=== PATIENT | male | born 1955 | race Caucasian/White ===

== ENCOUNTER 2023-02-11 20:37 | Emergency (ER) | payer MEDICARE, BC, MEDICAID, SELFPAY ==
[2023-02-11 20:53] VITALS: BP 127/82; PULSE 69; RESP 18; TEMP 36.4; O2SAT 98; BMI 32.3
--- NOTE | 2023-02-11 21:35 | CRLHL7_ITS ---
For Patients: As a result of the Cures Act, medical imaging exams and procedure reports are released immediately into your electronic medical record. You may view this report before your referring provider. If you have questions, please contact your health care provider. INDICATION: Mid deltoid pain and subscapularis. Pain after fall. TECHNIQUE: Right shoulder 3 views. COMPARISON: Right shoulder radiographs [id number]. FINDINGS: No acute fracture or dislocation. Mild degenerative changes of the acromioclavicular joint. The visualized right lung is clear. Sternotomy. Pacemaker wires. Soft tissues are unremarkable. IMPRESSION: No acute findings. Dictated by Kiana Bergman MD @ 02/11/2023 11:07:28 PM (Electronically Signed)
--- NOTE | 2023-02-11 21:35 | CRLHL7_ITS ---
For Patients: As a result of the Century Cures Act, medical imaging exams and procedure reports are released immediately into your electronic medical record. You may view this report before your referring provider. If you have questions, please contact your health care provider. INDICATION: Right mid anterior axillary line rib pain. COMPARISON: Chest radiograph 09/07/2020. TECHNIQUE: PA chest and right ribs, 3 images. FINDINGS: Suboptimal overpenetrated PA view limits evaluation, particularly in the left upper lung. No focal consolidation, pleural effusion, or pneumothorax. Linear atelectasis or scarring left lung base. Heart size upper limits of normal. Normal pulmonary vascularity. Sternotomy with cardiac valve prosthesis. Left chest pacemaker with leads in stable position. Surgical clips right upper quadrant. No displaced rib fracture identified. IMPRESSION: 1. No acute cardiopulmonary findings. 2. No displaced rib fracture identified. Dictated by Kiana Bergman MD @ 02/11/2023 11:04:20 PM (Electronically Signed)
--- OUTSIDE RECORDS SUMMARY | 2023-02-11 22:07 | XMS_ITS | CCD ---
Author Name Mellisa Fountain CNP Address [address] [facility] [address] [place] [address] Phone Organization [facility] Phone Care Team Providers Care Systems Admin Name Role Phone Jin Flowers MD Primary Care Provider Unavailabl e Unavailable Chronic Care Management Unavaila ble Summary Purpose DataExchange Insurance Providers Payer name Policy type / Coverage type Covered constitution party ID Effective Begin Date Effective End Date BC[place] of [place] Medicare Part B [id number] Unknown Unkn own Family history Mother Diagnosis Age At Onset Arthritis Unknown Father Diagnosis Age At Onset Suicide Unknown Social History Social History Element Codes Description Effec tive Dates Alcohol history SNOMED CT: 549672 Currently drin ks alcohol Occ use only 04/23/2021 Marital status Unknown x2 04/22/2021 Living arrangements Unknown Memory Care 04/22/[address]: 5551552 Former smoker 04/22 Children Unknown Has Children [...] Inbrija 42 mg capsules for inhalation RxNorm: 1645471 Take 1 Capsule(s) Inhalation as needed 04/11/2021 No Stop Date Active Aspirin Low Dose 81 mg tablet,delayed release RxNorm: 293084 Take 1 Tablet(s) Oral QD 04/11/2021 No Stop Date Active carbidopa ER 50 mg-levodopa 200 mg tablet,extended release RxNorm: 481999 Take 1 Tablet(s) Oral QHS every night at bedtime 04/11/2021 No Stop Date Active carbidopa 25 mg-levodopa 100 mg tablet RxNorm: 474997 Take 2 Tablet(s) Oral Q4H every four hours 04/11/2021 No Stop Date Active Medication Administered No Medication Administered data Immunizations Vaccine Codes Dose Date Status Covid-19 CVX: 208 12/18/2020 Covid-19 CVX: 208 11/27/2020 Tdap CVX: 115 01/07/2016 Tetanus, Diptheria, Pertussis CVX: 115 2015 Results Observation Observation Code Item Item Code Result Date S ervice Location PHQ9 PHQ9 57281-6 3 04/23/2021 Unknown SLUMS SLUMS 83589-7 08/2404/23/2021 Unknown Procedures Procedure Codes Date SYS BP LESS 140 CPT-4: G8752 04/23/2021 LLANOS BP LESS 90 CPT-4: G8754 04/23/2021 PT INELIG NEG SCRN DEPRES SNOMED CT: 428 [id number] CPT-4: G8510 04/23/2021 FALL RISK ASSESSMENT DOCD CPT-4: 3288F 2020 Vital Signs Date Vital Reason For Visit No Reason For Visit data Encounters Encounter Performer Location Codes Date (65558) DOMICIL VISIT NEW PAT Diagnosis: Parkinsons disease[ICD10: G20] Diagnosis: Acute lacunar stroke[ICD10: I63.81] Diagnosis: Weakness[ICD10: R53.1] Diagnosis: Weakness due to acute cerebrovascular accident (CVA)[ICD10: I63.9] Diagnosis: Unsteadiness on feet[ICD10: R26.81] Diagnosis: Dementia in other diseases classified elsewhere without behavioral disturbance[ICD10: F02.80] Diagnosis: Dementia with Lewy bodies[ICD10: G31.83] Diagnosis: History of permanent cardiac pacemaker placement[ICD10: Z95.0] Mellisa Fountain [facility] CPT-4: 80684 04/23/2021 Plan of Care Planned Activity Notes Codes Status Date Visit Plan: 04/23/2021 Patient Education: Patient Medication Summary Completed 04/23/2021 Patient Education: Influenza Vaccine Completed 04/23/2021 Patient Education: Alzheimer''s Disease Completed 04/23/2021 Patient Education: Dementia Complete d 04/23/2021
--- OUTSIDE RECORDS SUMMARY | 2023-02-11 22:07 | XMS_ITS | CCD ---
Author Name May Hannon CNP Address [address] [facility] [address] [place] [address] Phone Organization [facility] Phone Care Team Providers Care Home Health Clinical Liaison Name Role Phone Jin Flowers MD Primary Care Provider Unavailabl e Unavailable Chronic Care Management Unavaila ble Summary Purpose DataExchange Insurance Providers Payer name Policy type / Coverage type Covered alliance party ID Effective Begin Date Effective End Date [place] Medicare Part B [id number] Unknown Unkn own Family history Mother Diagnosis Age At Onset Arthritis Unknown Father Diagnosis Age At Onset Suicide Unknown Social History Social History Element Codes Description Effec tive Dates Alcohol history SNOMED CT: 415934 Currently drin ks alcohol Occ use only 04/23/2021 Marital status Unknown x2 04/22/2021 Living arrangements Unknown Memory Care 04/22/[address]: 4602776 Former smoker 04/22 Children Unknown Has Children [...] Fill Instructions citalopram 20 mg tablet RxNorm: 405135 Take 1 Tablet(s) Oral QD 08/01/20 22 Active citalopram 20 mg tablet RxNorm: 658074 Take 1 Tablet(s) Oral QD 08/07/20 21 Inactive Inbrija 42 mg capsules for inhalation RxNorm: 8010675 Take 1 Capsule(s) Inhalation as needed No Stop Date Active Aspirin Low Dose 81 mg tablet,delayed release RxNorm: 862765 Take 1 Tablet(s) Oral QD 1 No Stop Date Active carbidopa ER 50 mg-levodopa 200 mg tablet,extended release RxNorm: 162920 Take 1 Tablet(s) Oral QHS every night at bedtime 1 No Stop Date Active carbidopa 25 mg-levodopa 100 mg tablet RxNorm: 149747 Take 2 Tablet(s) Oral Q4H every four hours 1 No Stop Date Active Medication Administered No Medication Administered data Immunizations Vaccine Codes Dose Date Status Covid-19 CVX: 208 12/18/2020 Covid-19 CVX: 208 11/27/2020 Tdap CVX: 115 01/07/2016 Tetanus, Diptheria, Pertussis CVX: 115 2015 Results Observation Observation Code Item Item Code Result Date S ervice Location PHQ9 PHQ9 58200-9 3 08/07/2021 Unknown SLUMS SLUMS 94156-6 06/24 (Agitated) 08/07/2021 Unknown Procedures Procedure Codes Date PPPS, SUBSEQ VISIT SNOMED CT: 843541290 675950 CPT-4: G0439 08/07/2021 SYS BP LESS 140 CPT-4: G8752 08/07/2021 LLANOS BP LESS 90 CPT-4: G8754 08/07/2021 ADVNC CARE PLAN IN RCRD CPT-4: 1157F 08/07/20 21 FXNL STATUS ASSESSED CPT-4: 1170F 08/07/2021 AMNT PAIN NOTED NONE PRSNT CPT-4: 1126F 08/07 FALL RISK ASSESSMENT DOCD CPT-4: 3288F 2020 PT INELIG NEG SCRN DEPRES SNOMED CT: 428 [id number] CPT-4: G8510 08/07/2021 Vital Signs Date Vital Reason For Visit No Reason For Visit data Encounters Encounter Performer Location Codes Date (25751) DOMICIL VISIT EST PAT Diagnosis: Parkinsons disease[ICD10: G20] Diagnosis: Dementia in other diseases classified elsewhere without behavioral disturbance[ICD10: F02.80] Diagnosis: Dementia with Lewy bodies[ICD10: G31.83] Diagnosis: Weight loss[ICD10: R63.4] Diagnosis: Unsteadiness on feet[ICD10: R26.81] May Hannon [facility] CPT-4: 00913 08/07/2021 Plan of Care Planned Activity Notes [...] If weight accurate, consider adding protein supplement shake.?? Abnormalities of Gait Patient frequently ambulating without cane or walker. Continue to taper medications as able to reduce falls risk.?? Neurocognitive Disorders Increased exit seeking behaviors. Will increase celexa to 20mg daily and monitor.?? Parkinsons disease Patient safe and appropriate for environment. Continue to monitor for declines. . 08/07/2021
--- OUTSIDE RECORDS SUMMARY | 2023-02-11 22:07 | XMS_ITS | CCD ---
Author Name Mellisa Fountain CNP Address [address] [facility] [address] [place] [address] [facility] Phone Care Team Providers Care Coater Brake Linings Name Role Phone Jin Flowers MD Primary Care Provider Unavailabl e Unavailable Chronic Care Management Unavaila ble Summary Purpose DataExchange Insurance Providers Payer name Policy type / Coverage type Covered democrat ID Effective Begin Date Effective End Date [place] Medicare Part B [id number] Unknown Unkn own Family history Mother Diagnosis Age At Onset Arthritis Unknown Father Diagnosis Age At Onset Suicide Unknown Social History Social History Element Codes Description Effec tive Dates Alcohol history SNOMED CT: 366191 Currently drin ks alcohol Occ use only 04/23/2021 Marital status Unknown x2 04/22/2021 Living arrangements Unknown Memory Care 04/22/[address]: 5289714 Former smoker 04/22 Children Unknown Has Children [...] Fill Instructions citalopram 20 mg tablet RxNorm: 076286 Take 1 Tablet(s) Oral QD 1 08/01/20 22 Active citalopram 20 mg tablet RxNorm: 680691 Take 1 Tablet(s) Oral QD 1 08/07/20 21 Inactive Inbrija 42 mg capsules for inhalation RxNorm: 3810775 Take 1 Capsule(s) Inhalation as needed 1 No Stop Date Active Aspirin Low Dose 81 mg tablet,delayed release RxNorm: 564219 Take 1 Tablet(s) Oral QD 1 No Stop Date Active carbidopa ER 50 mg-levodopa 200 mg tablet,extended release RxNorm: 100211 Take 1 Tablet(s) Oral QHS every night at bedtime 1 No Stop Date Active carbidopa 25 mg-levodopa 100 mg tablet RxNorm: 421078 Take 2 Tablet(s) Oral Q4H every four hours 1 No Stop Date Active Medication Administered No Medication Administered data Immunizations Vaccine Codes Dose Date Status Covid-19 CVX: 208 12/18/2020 Covid-19 CVX: 208 11/27/2020 Tdap CVX: 115 01/07/2016 Tetanus, Diptheria, Pertussis CVX: 115 2015 Results Observation Observation Code Item Item Code Result Date Service Location Vitamin D Deficiency [id number] VITAMIN D DEFICIENCY SCREENING 12 ug/L 12/06/19 22 Unknown TSH IHL180 TSH LHE 14784-8 1.35 uIU/mL 12/05/19 22 Unknown CBC with Platelets Differential MJY652 WBC COUNT (AUTOMATED) 7.3 10e3/uL 12/05/19 22 Unknown CBC with Platelets Differential JQD047 RBC COUNT 789-8 4.54 10e6/uL 12/05/19 22 Unknown CBC with Platelets Differential VXU685 Hemoglobin 718-7 14.2 g/dL 12/05/19 22 Unknown CBC with Platelets Differential BGK135 Hematocrit 4544-3 43.7 % 12/05/19 22 Unknown CBC with Platelets Differential XXI789 MCV 787-2 96 fL 12/05/19 22 Unknown CBC with Platelets Differential RLK324 MCH 31.3 pg 12/05/19 22 Unknown CBC with Platelets Differential YPJ258 MCHC 32.5 g/dL 12/05/19 22 Unknown CBC with Platelets Differential VKD087 RDW 13.6 % 12/05/19 22 Unknown CBC with Platelets Differential FAS873 Platelet Count 777-3 193 10e3/uL 12/05/19 22 Unknown CBC with Platelets Differential HIL426 % NEUTROPHILS AUTO 60 % 12/05/19 22 Unknown CBC with Platelets Differential BYO167 % LYMPHOCYTES AUTO 26 % 12/05/19 22 Unknown CBC with Platelets Differential DMT830 % MONOCYTES AUTO 8 % 12/05/19 22 Unknown CBC with Platelets Differential OQY582 % EOSINOPHILS AUTO 5 % 12/05/19 22 Unknown CBC with Platelets Differential MVJ020 % BASOPHILS AUTO 1 % 12/05/19 22 Unknown CBC with Platelets Differential ZXC441 % IMMATURE GRANULOCYTES AUTO 0 % 12/05/19 22 Unknown CBC with Platelets Differential QXD230 NRBCS PER 100 WBC AUTO 0 /100 12/05/19 22 Unknown CBC with Platelets Differential DYE681 ABSOLUTE NEUTROPHILS AUTO 4.4 10e3/uL 12/05/19 22 Unknown CBC with Platelets Differential QWW981 ABSOLUTE LYMPHOCYTES AUTO 1.9 10e3/uL 12/05/19 22 Unknown CBC with Platelets Differential YUM163 ABSOLUTE MONOCYTES AUTO 0.6 10e3/uL 12/05/19 22 Unknown CBC with Platelets Differential MPG504 ABSOLUTE EOSINOPHILS AUTO 0.4 10e3/uL 12/05/19 22 Unknown CBC with Platelets Differential COB712 ABSOLUTE BASOPHILS AUTO 0.0 10e3/uL 12/05/19 22 Unknown CBC with Platelets Differential ZGT505 ABSOLUTE IMMATURE GRANULOCYTES AUTO 0.0 10e3/uL 12/05/19 22 Unknown CBC with Platelets Differential NFH746 NRBCS ABSOLUTE 0.0 10e3/uL 12/05/19 Unknown Basic Metabolic Panel LAB15 Sodium 2951-2 139 mmol/L 12/05/19 22 Unknown Basic Metabolic Panel LAB15 Potassium 2823-3 4.2 mmol/L 12/05/19 22 Unknown Basic Metabolic Panel LAB15 Chloride 2075-0 104 mmol/L 12/05/19 22 Unknown Basic Metabolic Panel LAB15 CO2 25 mmol/L 12/05/19 22 Unknown Basic Metabolic Panel LAB15 ANION GAP 38454-4 10 mmol/L 12/05/19 22 Unknown Basic Metabolic Panel LAB15 Urea Nitrogen 20 mg/dL 12/05/19 22 Unknown Basic Metabolic Panel LAB15 Creatinine 2160-0 0.83 mg/dL 12/05/19 22 Unknown Basic Metabolic Panel LAB15 Calcium 66538-8 9.2 mg/dL 12/05/19 22 Unknown Basic Metabolic Panel LAB15 Glucose 86 mg/dL 12/05/19 22 Unknown Basic Metabolic Panel LAB15 GFR, ESTIMATE 24649-4 >90 mL/min/1.7 3m2 12/05/19 22 Unknown Reason For Visit No Reason For Visit data
--- OUTSIDE RECORDS SUMMARY | 2023-02-11 22:07 | XMS_ITS | CCD ---
Author Name Unknown Organization Unknown Care Team Providers Care Fingerprint Classifier Name Role Phone Jin Flowers MD Primary Care Provider Unavailabl e Unavailable Chronic Care Management Unavaila ble Summary Purpose DataExchange Insurance Providers Payer name Policy type / Coverage type Covered alliance party ID Effective Begin Date Effective End Date [place] Part B [id number] Unknown Unkn own Family history Mother Diagnosis Age At Onset Arthritis Unknown Father Diagnosis Age At Onset Suicide Unknown Social History Social History Element Codes Description Effec tive Dates Alcohol history SNOMED CT: 926553 Currently drin ks alcohol Occ use only 04/23/2021 Marital status Unknown x2 04/22/2021 Living arrangements Unknown Memory Care 04/22/[address]: 9798703 Former smoker 04/22 Children Unknown Has Children [...] Fill Instructions citalopram 20 mg tablet RxNorm: 800877 Take 1 Tablet(s) Oral QD 1 08/01/20 22 Active citalopram 20 mg tablet RxNorm: 990767 Take 1 Tablet(s) Oral QD 1 08/07/20 21 Inactive Inbrija 42 mg capsules for inhalation RxNorm: 2485847 Take 1 Capsule(s) Inhalation as needed 1 No Stop Date Active Aspirin Low Dose 81 mg tablet,delayed release RxNorm: 635136 Take 1 Tablet(s) Oral QD 1 No Stop Date Active carbidopa ER 50 mg-levodopa 200 mg tablet,extended release RxNorm: 281086 Take 1 Tablet(s) Oral QHS every night at bedtime 1 No Stop Date Active carbidopa 25 mg-levodopa 100 mg tablet RxNorm: 976687 Take 2 Tablet(s) Oral Q4H every four hours 1 No Stop Date Active Medication Administered No Medication Administered data Immunizations Vaccine Codes Dose Date Status Covid-19 CVX: 208 12/18/2020 Covid-19 CVX: 208 11/27/2020 Tdap CVX: 115 01/07/2016 Tetanus, Diptheria, Pertussis CVX: 115 2015 Reason For Visit No Reason For Visit data
--- OUTSIDE RECORDS SUMMARY | 2023-02-11 22:07 | XMS_ITS | CCD ---
Author Name Jin Flowers MD Address [address] [facility] [address] [place] [address] Phone Organization [facility] Phone Care Team Providers Care Global Process Owner Name Role Phone Jin Flowers MD Primary Care Provider Unavailabl e Unavailable Chronic Care Management Unavaila ble Summary Purpose DataExchange Insurance Providers Payer name Policy type / Coverage type Covered democrat ID Effective Begin Date Effective End Date [place] Medicare Part B [id number] Unknown Unkn own Family history Mother Diagnosis Age At Onset Arthritis Unknown Father Diagnosis Age At Onset Suicide Unknown Social History Social History Element Codes Description Effec tive Dates Alcohol history SNOMED CT: 218813 Currently drin ks alcohol Occ use only 04/23/2021 Marital status Unknown x2 04/22/2021 Living arrangements Unknown Memory Care 04/22/[address]: 8391473 Former smoker 04/22 Children Unknown Has Children [...] Fill Instructions citalopram 20 mg tablet RxNorm: 461838 Take 1 Tablet(s) Oral QD 1 08/01/20 22 Active citalopram 20 mg tablet RxNorm: 440241 Take 1 Tablet(s) Oral QD 1 08/07/20 21 Inactive Inbrija 42 mg capsules for inhalation RxNorm: 2268082 Take 1 Capsule(s) Inhalation as needed 1 No Stop Date Active Aspirin Low Dose 81 mg tablet,delayed release RxNorm: 099786 Take 1 Tablet(s) Oral QD 1 No Stop Date Active carbidopa ER 50 mg-levodopa 200 mg tablet,extended release RxNorm: 360862 Take 1 Tablet(s) Oral QHS every night at bedtime 1 No Stop Date Active carbidopa 25 mg-levodopa 100 mg tablet RxNorm: 527241 Take 2 Tablet(s) Oral Q4H every four hours 1 No Stop Date Active Medication Administered No Medication Administered data Immunizations Vaccine Codes Dose Date Status Covid-19 CVX: 208 12/18/2020 Covid-19 CVX: 208 11/27/2020 Tdap CVX: 115 01/07/2016 Tetanus, Diptheria, Pertussis CVX: 115 2015 Results Observation Observation Code Item Item Code Result Date S ervice Location Urine Culture [id number] URINE CULTURE 33871-7 SEE RESULTS BELOW 2 Unknown Reason For Visit No Reason For Visit data
--- OUTSIDE RECORDS SUMMARY | 2023-02-11 22:07 | XMS_ITS | CCD ---
Author Name Mellisa Fountain CNP Address [address] [facility] [address] [place] [address] Phone Organization [facility] Phone Care Team Providers Care Journeyman Millwright Name Role Phone Jin Flowers MD Primary Care Provider Unavailabl e Unavailable Chronic Care Management Unavaila ble Summary Purpose DataExchange Insurance Providers Payer name Policy type / Coverage type Covered green party ID Effective Begin Date Effective End Date BC[place] of [place] Medicare Part B [id number] Unknown Unkn own Family history Mother Diagnosis Age At Onset Arthritis Unknown Father Diagnosis Age At Onset Suicide Unknown Social History Social History Element Codes Description Effec tive Dates Alcohol history SNOMED CT: 605615 Currently drin ks alcohol Occ use only 04/23/2021 Marital status Unknown x2 04/22/2021 Living arrangements Unknown Memory Care 04/22/[address]: 5009759 Former smoker 04/22 Children Unknown Has Children [...] Fill Instructions citalopram 20 mg tablet RxNorm: 674073 Take 1 Tablet(s) Oral QD 08/01/20 22 Active citalopram 20 mg tablet RxNorm: 770528 Take 1 Tablet(s) Oral QD 08/07/20 21 Inactive Inbrija 42 mg capsules for inhalation RxNorm: 3961558 Take 1 Capsule(s) Inhalation as needed No Stop Date Active Aspirin Low Dose 81 mg tablet,delayed release RxNorm: 642962 Take 1 Tablet(s) Oral QD 1 No Stop Date Active carbidopa ER 50 mg-levodopa 200 mg tablet,extended release RxNorm: 136985 Take 1 Tablet(s) Oral QHS every night at bedtime 1 No Stop Date Active carbidopa 25 mg-levodopa 100 mg tablet RxNorm: 146659 Take 2 Tablet(s) Oral Q4H every four hours 1 No Stop Date Active Medication Administered No Medication Administered data Immunizations Vaccine Codes Dose Date Status Covid-19 CVX: 208 12/18/2020 Covid-19 CVX: 208 11/27/2020 Tdap CVX: 115 01/07/2016 Tetanus, Diptheria, Pertussis CVX: 115 2015 Vital Signs Date Vital Reason For Visit No Reason For Visit data Encounters Encounter Performer Location Codes Date (68959) DOMICIL VISIT EST PAT Diagnosis: Parkinsons disease[ICD10: G20] Diagnosis: Dementia with Lewy bodies[ICD10: G31.83] Diagnosis: Dementia in other diseases classified elsewhere without behavioral disturbance[ICD10: F02.80] Diagnosis: Weakness due to acute cerebrovascular accident (CVA)[ICD10: I63.9] Diagnosis: Acute lacunar stroke[ICD10: I63.81] Mellisa Fountain [facility] CPT-4: 65218 08/27/2021 Plan of Care Planned Activity Notes [...] Continue medical management. Parkinsons disease Safe in [facility]/ setting with 24 hour nursing supervision. Anticipate ongoing cognitive and physical decline with disease progression. Continue current care plan and monitoring. Facility to update with any changes in the condition. . 08/27/2021
--- OUTSIDE RECORDS SUMMARY | 2023-02-11 22:07 | XMS_ITS | CCD ---
Author Name Unknown Organization Unknown Care Team Providers Care Cook Relief Name Role Phone Jin Flowers MD Primary Care Provider Unavailabl e Unavailable Chronic Care Management Unavaila ble Summary Purpose DataExchange Insurance Providers Payer name Policy type / Coverage type Covered constitution party ID Effective Begin Date Effective End Date [place] [id number] Unknown Unkn own Family history Mother Diagnosis Age At Onset Arthritis Unknown Father Diagnosis Age At Onset Suicide Unknown Social History Social History Element Codes Description Effec tive Dates Alcohol history SNOMED CT: 216000 Currently drin ks alcohol Occ use only 04/23/2021 Marital status Unknown x2 04/22/2021 Living arrangements Unknown Memory Care 04/22/[address]: 1238078 Former smoker 04/22 Children Unknown Has Children [...] Fill Instructions citalopram 20 mg tablet RxNorm: 725180 Take 1 Tablet(s) Oral QD 1 08/01/20 22 Active citalopram 20 mg tablet RxNorm: 013744 Take 1 Tablet(s) Oral QD 1 08/07/20 21 Inactive Inbrija 42 mg capsules for inhalation RxNorm: 0003622 Take 1 Capsule(s) Inhalation as needed 1 No Stop Date Active Aspirin Low Dose 81 mg tablet,delayed release RxNorm: 930942 Take 1 Tablet(s) Oral QD 1 No Stop Date Active carbidopa ER 50 mg-levodopa 200 mg tablet,extended release RxNorm: 017786 Take 1 Tablet(s) Oral QHS every night at bedtime 1 No Stop Date Active carbidopa 25 mg-levodopa 100 mg tablet RxNorm: 278851 Take 2 Tablet(s) Oral Q4H every four hours 1 No Stop Date Active Medication Administered No Medication Administered data Immunizations Vaccine Codes Dose Date Status Covid-19 CVX: 208 12/18/2020 Covid-19 CVX: 208 11/27/2020 Tdap CVX: 115 01/07/2016 Tetanus, Diptheria, Pertussis CVX: 115 2015 Reason For Visit No Reason For Visit data
--- OUTSIDE RECORDS SUMMARY | 2023-02-11 22:07 | XMS_ITS | CCD ---
Author Name Jin Flowers MD Address [address] [facility] [address] [place] [address] Phone Organization [facility] Phone Care Team Providers Care Preparer Making Department Name Role Phone Jin Flowers MD Primary Care Provider Unavailabl e Unavailable Chronic Care Management Unavaila ble Summary Purpose DataExchange Insurance Providers Payer name Policy type / Coverage type Covered republican ID Effective Begin Date Effective End Date BCBS of [place] Medicare Part B [id number] Unknown Unkn own Family history Mother Diagnosis Age At Onset Arthritis Unknown Father Diagnosis Age At Onset Suicide Unknown Social History Social History Element Codes Description Effec tive Dates Alcohol history SNOMED CT: 760416 Currently drin ks alcohol Occ use only 04/23/2021 Marital status Unknown x2 04/22/2021 Living arrangements Unknown Memory Care 04/22/[address]: 2748098 Former smoker 04/22 Children Unknown Has Children [...] Inbrija 42 mg capsules for inhalation RxNorm: 3845772 Take 1 Capsule(s) Inhalation as needed 04/11/2021 No Stop Date Active Aspirin Low Dose 81 mg tablet,delayed release RxNorm: 162829 Take 1 Tablet(s) Oral QD 04/11/2021 No Stop Date Active carbidopa ER 50 mg-levodopa 200 mg tablet,extended release RxNorm: 306987 Take 1 Tablet(s) Oral QHS every night at bedtime 04/11/2021 No Stop Date Active carbidopa 25 mg-levodopa 100 mg tablet RxNorm: 314386 Take 2 Tablet(s) Oral Q4H every four hours 04/11/2021 No Stop Date Active Medication Administered No Medication Administered data Immunizations Vaccine Codes Dose Date Status Covid-19 CVX: 208 12/18/2020 Covid-19 CVX: 208 11/27/2020 Tdap CVX: 115 01/07/2016 Tetanus, Diptheria, Pertussis CVX: 115 2015 Results Observation Observation Code Item Item Code Result Date S ervice Location COVID-19 Virus PCR [id number] COVID-19 VIRUS PCR - RESULT Not Detected 07/31/20 21 Unknown Reason For Visit No Reason For Visit data
--- OUTSIDE RECORDS SUMMARY | 2023-02-11 22:07 | XMS_ITS | CCD ---
Author Name Jin Flowers MD Address [address] [facility] [address] [place] [address] Phone Organization [facility] Phone Care Team Providers Care Clay Digger Name Role Phone Jin Flowers MD Primary Care Provider Unavailabl e Unavailable Chronic Care Management Unavaila ble Summary Purpose DataExchange Insurance Providers Payer name Policy type / Coverage type Covered constitution party ID Effective Begin Date Effective End Date [place] Medicare Part B [id number] Unknown Unkn own Family history Mother Diagnosis Age At Onset Arthritis Unknown Father Diagnosis Age At Onset Suicide Unknown Social History Social History Element Codes Description Effec tive Dates Alcohol history SNOMED CT: 225165 Currently drin ks alcohol Occ use only 04/23/2021 Marital status Unknown x2 04/22/2021 Living arrangements Unknown Memory Care 04/22/[address]: 5459921 Former smoker 04/22 Children Unknown Has Children [...] Fill Instructions citalopram 20 mg tablet RxNorm: 152883 Take 1 Tablet(s) Oral QD 1 08/01/20 22 Active citalopram 20 mg tablet RxNorm: 903946 Take 1 Tablet(s) Oral QD 1 08/07/20 21 Inactive Inbrija 42 mg capsules for inhalation RxNorm: 7718192 Take 1 Capsule(s) Inhalation as needed 1 No Stop Date Active Aspirin Low Dose 81 mg tablet,delayed release RxNorm: 779280 Take 1 Tablet(s) Oral QD 1 No Stop Date Active carbidopa ER 50 mg-levodopa 200 mg tablet,extended release RxNorm: 367625 Take 1 Tablet(s) Oral QHS every night at bedtime 1 No Stop Date Active carbidopa 25 mg-levodopa 100 mg tablet RxNorm: 481955 Take 2 Tablet(s) Oral Q4H every four [...] CPT-4: G8754 01/07/2022 Vital Signs Date Vital Reason For Visit No Reason For Visit data Encounters Encounter Performer Location Codes Date (85776) DOMICIL VISIT EST PAT Diagnosis: Dementia in other diseases classified elsewhere without behavioral disturbance[ICD10: F02.80] Diagnosis: Dementia with behavioral disturbance[ICD10: F03.91] Diagnosis: Dementia with Lewy bodies[ICD10: G31.83] Diagnosis: Vitamin D deficiency[ICD10: E55.9] Diagnosis: Parkinson disease[ICD10: G20] Diagnosis: Weakness[ICD10: R53.1] Jin Flowers [facility] CPT-4: 34254 022 Plan of Care Planned Activity Notes [...] TSH was stable at 1.35 from routine labs.?? Vitamin D Deficiency Vitamin D level was low at 12. Started the patient on a vitamin D supplement of 50,000 units weekly for 8 weeks then the patient will be on 2,000 units daily. Continue to monitor with routine labs.?? Malaise & Fatigue Pain level overall well controlled on current regimen. Taper/adjust meds prn for adequate pain control. Consult PT/OT when appropriate. Parkinson disease Patient stable reviewed CBC and BMP. Continue with current treatment plan and to monitor. . 01/07/2022
--- OUTSIDE RECORDS SUMMARY | 2023-02-11 22:07 | XMS_ITS | CCD ---
Author Name Jin Flowers MD Address [address] [facility] [address] [place] [address] Phone Organization [facility] Phone Care Team Providers Care Medical Sales Name Role Phone Jin Flowers MD Primary Care Provider Unavailabl e Unavailable Chronic Care Management Unavaila ble Summary Purpose DataExchange Insurance Providers Payer name Policy type / Coverage type Covered democrat ID Effective Begin Date Effective End Date [place] of [place] Medicare Part B [id number] Unknown Unkn own Family history Mother Diagnosis Age At Onset Arthritis Unknown Father Diagnosis Age At Onset Suicide Unknown Social History Social History Element Codes Description Effec tive Dates Alcohol history SNOMED CT: 680235 Currently drin ks alcohol Occ use only 04/23/2021 Marital status Unknown x2 04/22/2021 Living arrangements Unknown Memory Care 04/22/[address]: 8593981 Former smoker 04/22 Children Unknown Has Children [...] Inbrija 42 mg capsules for inhalation RxNorm: 4881155 Take 1 Capsule(s) Inhalation as needed 04/11/2021 No Stop Date Active Aspirin Low Dose 81 mg tablet,delayed release RxNorm: 188767 Take 1 Tablet(s) Oral QD 04/11/2021 No Stop Date Active carbidopa ER 50 mg-levodopa 200 mg tablet,extended release RxNorm: 208549 Take 1 Tablet(s) Oral QHS every night at bedtime 04/11/2021 No Stop Date Active carbidopa 25 mg-levodopa 100 mg tablet RxNorm: 127015 Take 2 Tablet(s) Oral Q4H every four hours 04/11/2021 No Stop Date Active Medication Administered No Medication Administered data Immunizations Vaccine Codes Dose Date Status Covid-19 CVX: 208 12/18/2020 Covid-19 CVX: 208 11/27/2020 Tdap CVX: 115 01/07/2016 Tetanus, Diptheria, Pertussis CVX: 115 2015 Results Observation Observation Code Item Item Code Result Date S vice Location COVID-19 Virus PCR [id number] SARS-COV2 PCR Negative Unknown Reason For Visit No Reason For Visit data
--- OUTSIDE RECORDS SUMMARY | 2023-02-11 22:07 | XMS_ITS | CCD ---
Author Name Jin Flowers MD Address [address] [facility] [address] [place] [address] Phone Organization [facility] Phone Care Team Providers Care Senior Benefits Manager Name Role Phone Jin Flowers MD Primary Care Provider Unavailabl e Unavailable Chronic Care Management Unavaila ble Summary Purpose DataExchange Insurance Providers Payer name Policy type / Coverage type Covered green party ID Effective Begin Date Effective End Date [place] Medicare Part B [id number] Unknown Unkn own Family history Mother Diagnosis Age At Onset Arthritis Unknown Father Diagnosis Age At Onset Suicide Unknown Social History Social History Element Codes Description Effec tive Dates Alcohol history SNOMED CT: 828661 Currently drin ks alcohol Occ use only 04/23/2021 Marital status Unknown x2 04/22/2021 Living arrangements Unknown Memory Care 04/22/[address]: 0141291 Former smoker 04/22 Children Unknown Has Children [...] Inbrija 42 mg capsules for inhalation RxNorm: 6518499 Take 1 Capsule(s) Inhalation as needed 04/11/2021 No Stop Date Active Aspirin Low Dose 81 mg tablet,delayed release RxNorm: 102069 Take 1 Tablet(s) Oral QD 04/11/2021 No Stop Date Active carbidopa ER 50 mg-levodopa 200 mg tablet,extended release RxNorm: 834092 Take 1 Tablet(s) Oral QHS every night at bedtime 04/11/2021 No Stop Date Active carbidopa 25 mg-levodopa 100 mg tablet RxNorm: 874368 Take 2 Tablet(s) Oral Q4H every four [...] CPT-4: G8754 07/08/2021 Vital Signs Date Vital Reason For Visit No Reason For Visit data Encounters Encounter Performer Location Codes Date (20612) DOMICIL VISIT EST PAT Diagnosis: History of permanent cardiac pacemaker placement[ICD10: Z95.0] Diagnosis: Dementia in other diseases classified elsewhere without behavioral disturbance[ICD10: F02.80] Diagnosis: Dementia with Lewy bodies[ICD10: G31.83] Diagnosis: Weakness due to acute cerebrovascular accident (CVA)[ICD10: I63.9] Diagnosis: Acute lacunar stroke[ICD10: I63.81] Jin Flowers [facility] CPT-4: 46060 07/08/2021 Plan of Care Planned Activity Notes Codes Status Date Patient Education: Patient Medication Summary Completed 07/08/2021 Patient Education: Influenza Vaccine Completed 07/08/2021 Instructions Comment Date Neurocognitive Disorders No concerns per nursing about agitation. Continue on current regiment and continue to monitor. No medication changes were made today.?? Hx of CVA Patient stable with no concerns from nursing. Continue to monitor for any symptoms of thalamic infract.?? Cerebrovascular Disease Patient stable with no concerns from nursing. Continue to monitor for any symptoms of thalamic infract.?? History of permanent cardiac pacemaker placement Patient stable. No acute concerns and BP stable at 110/80. Continue to monitor.?? . 07/08/2021
--- OUTSIDE RECORDS SUMMARY | 2023-02-11 22:07 | XMS_ITS | CCD ---
Author Name Jin Flowers MD Address [address] [facility] [address] [place] [address] Phone Organization [facility] Phone Care Team Providers Care Medical Information Officer Name Role Phone Jin Flowers MD Primary Care Provider Unavailabl e Unavailable Chronic Care Management Unavaila ble Summary Purpose DataExchange Insurance Providers Payer name Policy type / Coverage type Covered republican ID Effective Begin Date Effective End Date [place] of [place] Medicare Part B [id number] Unknown Unkn own Family history Mother Diagnosis Age At Onset Arthritis Unknown Father Diagnosis Age At Onset Suicide Unknown Social History Social History Element Codes Description Effec tive Dates Alcohol history SNOMED CT: 589453 Currently drin ks alcohol Occ use only 04/23/2021 Marital status Unknown x2 04/22/2021 Living arrangements Unknown Memory Care 04/22/[address]: 5847838 Former smoker 04/22 Children Unknown Has Children [...] Fill Instructions citalopram 20 mg tablet RxNorm: 193473 Take 1 Tablet(s) Oral QD 1 08/01/20 22 Active citalopram 20 mg tablet RxNorm: 331122 Take 1 Tablet(s) Oral QD 08/07/20 21 Inactive Inbrija 42 mg capsules for inhalation RxNorm: 0902389 Take 1 Capsule(s) Inhalation as needed 1 No Stop Date Active Aspirin Low Dose 81 mg tablet,delayed release RxNorm: 346271 Take 1 Tablet(s) Oral QD 1 No Stop Date Active carbidopa ER 50 mg-levodopa 200 mg tablet,extended release RxNorm: 735526 Take 1 Tablet(s) Oral QHS every night at bedtime 1 No Stop Date Active carbidopa 25 mg-levodopa 100 mg tablet RxNorm: 330899 Take 2 Tablet(s) Oral Q4H every four [...] CPT-4: G8754 10/01/2021 Vital Signs Date Vital Reason For Visit No Reason For Visit data Encounters Encounter Performer Location Codes Date (04920) DOMICIL VISIT EST PAT / modifier Diagnosis: Dementia with Lewy bodies[ICD10: G31.83] Diagnosis: Dementia in other diseases classified elsewhere without behavioral disturbance[ICD10: F02.80] Diagnosis: Parkinsons disease[ICD10: G20] Diagnosis: Weakness[ICD10: R53.1] Diagnosis: Weight loss[ICD10: R63.4] Jin Flowers [facility] CPT-4: 30590 04/2021 Plan of Care Planned Activity Notes Codes Status Date Patient Education: Patient Medication Summary Completed 10/01/2021 Patient Education: Influenza Vaccine Completed 10/01/2021 Instructions Comment Date Parkinsons disease Patient stable. No acute concerns. No medication changes made. Malaise & Fatigue Stable.?? No acute concerns.?? Continue to monitor. Neurocognitive Disorders Nursing staff notes patient is bringing female residents into his room.?? He is on SSRI, citalopram to reduce libido.?? Nursing to monitor for any issues regarding potential sexual activity and vulnerable adults.?? Concerns Related to Food or Fluid Intake Weight stable.?? Continue to monitor. . 10/01/2021
--- OUTSIDE RECORDS SUMMARY | 2023-02-11 22:07 | XMS_ITS | CCD ---
Author Name Jin Flowers MD Address [address] [facility] [address] [place] [address] Phone Organization [facility] Phone Care Team Providers Care Waist Cutter Name Role Phone Jin Flowers MD Primary Care Provider Unavailabl e Unavailable Chronic Care Management Unavaila ble Summary Purpose DataExchange Insurance Providers Payer name Policy type / Coverage type Covered green party ID Effective Begin Date Effective End Date [place] Medicare Part B [id number] Unknown Unkn own Family history Mother Diagnosis Age At Onset Arthritis Unknown Father Diagnosis Age At Onset Suicide Unknown Social History Social History Element Codes Description Effec tive Dates Alcohol history SNOMED CT: 370119 Currently drin ks alcohol Occ use only 04/23/2021 Marital status Unknown x2 04/22/2021 Living arrangements Unknown Memory Care 04/22/[address]: 2915086 Former smoker 04/22 Children Unknown Has Children [...] Inbrija 42 mg capsules for inhalation RxNorm: 4096240 Take 1 Capsule(s) Inhalation as needed 04/11/2021 No Stop Date Active Aspirin Low Dose 81 mg tablet,delayed release RxNorm: 903391 Take 1 Tablet(s) Oral QD 04/11/2021 No Stop Date Active carbidopa ER 50 mg-levodopa 200 mg tablet,extended release RxNorm: 207669 Take 1 Tablet(s) Oral QHS every night at bedtime 04/11/2021 No Stop Date Active carbidopa 25 mg-levodopa 100 mg tablet RxNorm: 286406 Take 2 Tablet(s) Oral Q4H every four hours 04/11/2021 No Stop Date Active Medication Administered No Medication Administered data Immunizations Vaccine Codes Dose Date Status Covid-19 CVX: 208 12/18/2020 Covid-19 CVX: 208 11/27/2020 Tdap CVX: 115 01/07/2016 Tetanus, Diptheria, Pertussis CVX: 115 2015 Results Observation Observation Code Item Item Code Result Date S ervice Location COVID-19 Virus PCR [id number] COVID-19 VIRUS PCR - RESULT Not Detected 08/07/20 Unknown Reason For Visit No Reason For Visit data
--- OUTSIDE RECORDS SUMMARY | 2023-02-11 22:07 | XMS_ITS | CCD ---
Author Name Jin Flowers MD Address [address] [facility] [address] [place] [address] Phone Organization [facility] Phone Care Team Providers Care Care Program Resident Name Role Phone Jin Flowers MD Primary Care Provider Unavailabl e Unavailable Chronic Care Management Unavaila ble Summary Purpose DataExchange Insurance Providers Payer name Policy type / Coverage type Covered constitution party ID Effective Begin Date Effective End Date [place] Medicare Part B [id number] Unknown Unkn own Family history Mother Diagnosis Age At Onset Arthritis Unknown Father Diagnosis Age At Onset Suicide Unknown Social History Social History Element Codes Description Effec tive Dates Alcohol history SNOMED CT: 696476 Currently drin ks alcohol Occ use only 04/23/2021 Marital status Unknown x2 04/22/2021 Living arrangements Unknown Memory Care 04/22/[address]: 9932236 Former smoker 04/22 Children Unknown Has Children [...] Inbrija 42 mg capsules for inhalation RxNorm: 2527872 Take 1 Capsule(s) Inhalation as needed 04/11/2021 No Stop Date Active Aspirin Low Dose 81 mg tablet,delayed release RxNorm: 805957 Take 1 Tablet(s) Oral QD 04/11/2021 No Stop Date Active carbidopa ER 50 mg-levodopa 200 mg tablet,extended release RxNorm: 652683 Take 1 Tablet(s) Oral QHS every night at bedtime 04/11/2021 No Stop Date Active carbidopa 25 mg-levodopa 100 mg tablet RxNorm: 621454 Take 2 Tablet(s) Oral Q4H every four [...] CPT-4: G8754 06/05/2021 Vital Signs Date Vital Reason For Visit No Reason For Visit data Encounters Encounter Performer Location Codes Date (48017) DOMICIL VISIT EST PAT Diagnosis: Acute lacunar stroke[ICD10: I63.81] Diagnosis: Weakness due to acute cerebrovascular accident (CVA)[ICD10: I63.9] Diagnosis: Dementia in other diseases classified elsewhere without behavioral disturbance[ICD10: F02.80] Diagnosis: Dementia with Lewy bodies[ICD10: G31.83] Diagnosis: Weakness[ICD10: R53.1] Jin Flowers [facility] CPT-4: 76020 06/05/2021 Plan of Care Planned Activity Notes Codes Status Date Patient Education: Patient Medication Summary Completed 06/05/2021 Patient Education: Influenza Vaccine Completed 06/05/2021 Instructions Comment Date Cerebrovascular Disease Reviewed hospital records.?? CT of Head shows left thalamic infarct. Neurocognitive Disorders Nursing notes occasional behaviors with agitation, Family can usually calm down.?? Continue to monitor.?? No medication changes made.?? Malaise & Fatigue CBC and CMP from February 2021 hospitalization essentially normal. Hx of CVA Reviewed hospital records.?? CT of Head shows left thalamic infarct. . 06/05/2021
--- OUTSIDE RECORDS SUMMARY | 2023-02-11 22:07 | XMS_ITS | CCD ---
Author Name May Hannon CNP Address [address] [facility] [address] [place] [address] Phone Organization [facility] Phone Care Team Providers Care Proteomics Scientist Name Role Phone Jin Flowers MD Primary Care Provider Unavailabl e Unavailable Chronic Care Management Unavaila ble Summary Purpose DataExchange Insurance Providers Payer name Policy type / Coverage type Covered democrat ID Effective Begin Date Effective End Date [place] Medicare Part B [id number] Unknown Unkn own Family history Mother Diagnosis Age At Onset Arthritis Unknown Father Diagnosis Age At Onset Suicide Unknown Social History Social History Element Codes Description Effec tive Dates Alcohol history SNOMED CT: 810337 Currently drsaba ks alcohol Occ use only 04/23/2021 Marital status Unknown x2 04/22/2021 Living arrangements Unknown Memory Care 04/22/[address]: 0571854 Former smoker 04/22 Children Unknown Has Children [...] Fill Instructions citalopram 20 mg tablet RxNorm: 381251 Take 1 Tablet(s) Oral QD 1 08/01/20 22 Active citalopram 20 mg tablet RxNorm: 321301 Take 1 Tablet(s) Oral QD 1 08/07/20 21 Inactive Inbrija 42 mg capsules for inhalation RxNorm: 2077072 Take 1 Capsule(s) Inhalation as needed 1 No Stop Date Active Aspirin Low Dose 81 mg tablet,delayed release RxNorm: 608214 Take 1 Tablet(s) Oral QD 1 No Stop Date Active carbidopa ER 50 mg-levodopa 200 mg tablet,extended release RxNorm: 492128 Take 1 Tablet(s) Oral QHS every night at bedtime 1 No Stop Date Active carbidopa 25 mg-levodopa 100 mg tablet RxNorm: 523414 Take 2 Tablet(s) Oral Q4H every four [...] CPT-4: G8754 11/05/2021 Vital Signs Date Vital Reason For Visit No Reason For Visit data Encounters Encounter Performer Location Codes Date (12530) DOMICIL VISIT EST PAT Diagnosis: COVID-19[ICD10: U07.1] Diagnosis: Weight loss[ICD10: R63.4] Diagnosis: Dementia with Lewy bodies[ICD10: G31.83] Diagnosis: Dementia in other diseases classified elsewhere without behavioral disturbance[ICD10: F02.80] Diagnosis: Parkinsons disease[ICD10: G20] May Hannon [facility] CPT-4: 67913 11/05/2021 Plan of Care Planned Activity Notes Codes Status Date Patient Education: Patient Medication Summary Completed 11/05/2021 Patient Education: Influenza Vaccine Completed 11/05/2021 Patient Education: Alzheimer''s Disease Completed 11/05/2021 Patient Education: Dementia Complete d 11/05/2021 Instructions Comment Date Concerns Related to Food or Fluid Intake Monitor for weight losses with recent dx of covid-19. Continue to encourage adequate oral intake and hydration.?? Parkinsons disease Monitor for increased Parkinsonian symptoms. Continue current treatment regimen.?? Neurocognitive Disorders [facility] and [facility] psych referrals pending. Patient behaviors improved since he had been on isolation. Nursing to continue to monitor for concerns with sexual activities and vulnerable adults.?? COVID-19 Continue droplet isolation. Monitor for respiratory symptoms or declines. Continue to encourage adequate hydration and oral intake.?? . 11/05/2021
--- OUTSIDE RECORDS SUMMARY | 2023-02-11 22:07 | XMS_ITS | CCD ---
Author Name Mellisa Fountain CNP Address [address] [facility] [address] [place] [address] Phone Organization [facility] Phone Care Team Providers Care Superintendent Pipelines Name Role Phone Jin Flowers MD Primary Care Provider Unavailabl e Unavailable Chronic Care Management Unavaila ble Summary Purpose DataExchange Insurance Providers Payer name Policy type / Coverage type Covered libertarian ID Effective Begin Date Effective End Date BC[place] of [place] Medicare Part B [id number] Unknown Unkn own Family history Mother Diagnosis Age At Onset Arthritis Unknown Father Diagnosis Age At Onset Suicide Unknown Social History Social History Element Codes Description Effec tive Dates Alcohol history SNOMED CT: 120601 Currently drin ks alcohol Occ use only 04/23/2021 Marital status Unknown x2 04/22/2021 Living arrangements Unknown Memory Care 04/22/[address]: 1092284 Former smoker 04/22 Children Unknown Has Children [...] Fill Instructions citalopram 20 mg tablet RxNorm: 168714 Take 1 Tablet(s) Oral QD 1 08/01/20 22 Active citalopram 20 mg tablet RxNorm: 967295 Take 1 Tablet(s) Oral QD 1 08/07/20 21 Inactive Inbrija 42 mg capsules for inhalation RxNorm: 0219837 Take 1 Capsule(s) Inhalation as needed 1 No Stop Date Active Aspirin Low Dose 81 mg tablet,delayed release RxNorm: 105079 Take 1 Tablet(s) Oral QD 1 No Stop Date Active carbidopa ER 50 mg-levodopa 200 mg tablet,extended release RxNorm: 933621 Take 1 Tablet(s) Oral QHS every night at bedtime 1 No Stop Date Active carbidopa 25 mg-levodopa 100 mg tablet RxNorm: 863109 Take 2 Tablet(s) Oral Q4H every four [...] CPT-4: G8754 12/03/2021 Vital Signs Date Vital Reason For Visit No Reason For Visit data Encounters Encounter Performer Location Codes Date (28881) DOMICIL VISIT EST PAT Diagnosis: Parkinsons disease[ICD10: G20] Diagnosis: Dementia with Lewy bodies[ICD10: G31.83] Diagnosis: Dementia in other diseases classified elsewhere without behavioral disturbance[ICD10: F02.80] Diagnosis: Vitamin D deficiency[ICD10: E55.9] Diagnosis: Major depress, 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 ?? . 12/03/2021
--- OUTSIDE RECORDS SUMMARY | 2023-02-11 22:07 | XMS_ITS | CCD ---
Author Name Jin Flowers MD Address [address] [facility] [address] [place] [address] Phone Organization [facility] Phone Care Team Providers Care Hot Water Heater Installer Name Role Phone Jin Flowers MD Primary Care Provider Unavailabl e Unavailable Chronic Care Management Unavaila ble Summary Purpose DataExchange Insurance Providers Payer name Policy type / Coverage type Covered democrat ID Effective Begin Date Effective End Date [place] Medicare Part B [id number] Unknown Unkn own Family history Mother Diagnosis Age At Onset Arthritis Unknown Father Diagnosis Age At Onset Suicide Unknown Social History Social History Element Codes Description Effec tive Dates Alcohol history SNOMED CT: 556404 Currently drin ks alcohol Occ use only 04/23/2021 Marital status Unknown x2 04/22/2021 Living arrangements Unknown Memory Care 04/22/[address]: 2006329 Former smoker 04/22 Children Unknown Has Children [...] Inbrija 42 mg capsules for inhalation RxNorm: 1934713 Take 1 Capsule(s) Inhalation as needed 04/11/2021 No Stop Date Active Aspirin Low Dose 81 mg tablet,delayed release RxNorm: 063114 Take 1 Tablet(s) Oral QD 04/11/2021 No Stop Date Active carbidopa ER 50 mg-levodopa 200 mg tablet,extended release RxNorm: 021846 Take 1 Tablet(s) Oral QHS every night at bedtime 04/11/2021 No Stop Date Active carbidopa 25 mg-levodopa 100 mg tablet RxNorm: 614051 Take 2 Tablet(s) Oral Q4H every four hours 04/11/2021 No Stop Date Active Medication Administered No Medication Administered data Immunizations Vaccine Codes Dose Date Status Covid-19 CVX: 208 12/18/2020 Covid-19 CVX: 208 11/27/2020 Tdap CVX: 115 01/07/2016 Tetanus, Diptheria, Pertussis CVX: 115 2015 Results Observation Observation Code Item Item Code Result Date S ervice Location COVID-19 Virus PCR [id number] COVID-19 VIRUS PCR - RESULT Not Detected 07/19/20 Unknown Reason For Visit No Reason For Visit data
--- OUTSIDE RECORDS SUMMARY | 2023-02-11 22:07 | XMS_ITS | CCD ---
Author Name Jaylyn Bryant CNP Address [address] [facility] [address] [place] [address] Phone Organization [facility] Phone Care Team Providers Care Tube Laser Operator Name Role Phone Jin Flowers MD Primary Care Provider Unavailabl e Unavailable Chronic Care Management Unavaila ble Summary Purpose DataExchange Insurance Providers Payer name Policy type / Coverage type Covered constitution party ID Effective Begin Date Effective End Date [place] Part B [id number] Unknown Unkn own Family history Mother Diagnosis Age At Onset Arthritis Unknown Father Diagnosis Age At Onset Suicide Unknown Social History Social History Element Codes Description Effec tive Dates Alcohol history SNOMED CT: 476565 Currently drin ks alcohol Occ use only 04/23/2021 Marital status Unknown x2 04/22/2021 Living arrangements Unknown Memory Care 04/22/[address]: 8238572 Former smoker 04/22 Children Unknown Has Children [...] Fill Instructions citalopram 20 mg tablet RxNorm: 474061 Take 1 Tablet(s) Oral QD 1 08/01/20 22 Active citalopram 20 mg tablet RxNorm: 992880 Take 1 Tablet(s) Oral QD 1 08/07/20 21 Inactive Inbrija 42 mg capsules for inhalation RxNorm: 0312779 Take 1 Capsule(s) Inhalation as needed 1 No Stop Date Active Aspirin Low Dose 81 mg tablet,delayed release RxNorm: 246543 Take 1 Tablet(s) Oral QD 1 No Stop Date Active carbidopa ER 50 mg-levodopa 200 mg tablet,extended release RxNorm: 283886 Take 1 Tablet(s) Oral QHS every night at bedtime 1 No Stop Date Active carbidopa 25 mg-levodopa 100 mg tablet RxNorm: 139872 Take 2 Tablet(s) Oral Q4H every four hours 1 No Stop Date Active Medication Administered No Medication Administered data Immunizations Vaccine Codes Dose Date Status Covid-19 CVX: 208 12/18/2020 Covid-19 CVX: 208 11/27/2020 Tdap CVX: 115 01/07/2016 Tetanus, Diptheria, Pertussis CVX: 115 03/14/ 2016 Vital Signs Date Vital Reason For Visit No Reason For Visit data Encounters Encounter Performer Location Codes Date () PSYCH DIAG EVAL W/MED SRVCS Diagnosis: Dementia with behavioral disturbance[ICD10: F03.91] Diagnosis: Dementia with Lewy bodies[ICD10: G31.83] Diagnosis: Major depress, 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] Diagnosis: Parkinsons disease[ICD10: G20] Diagnosis: Weight loss[ICD10: R63.4] Diagnosis: Unsteadiness on feet[ICD10: R26.81] Jaylyn Bryant [facility] CPT-4: 17537 12/06/2021 Plan of Care Planned Activity Notes Codes Status Date Patient Education: Patient Medication Summary Completed 12/06/2021 Patient Education: Influenza Vaccine Completed 12/06/2021 Patient Education: Alzheimer''s Disease Completed 12/06/2021 Patient Education: Dementia Complete d 12/06/2021 Instructions Comment Date Neurocognitive Disorders Recommend starting Depakote 125mg bid for impulsive behaviors, disinhibition, and mood stabilization.?? Message left for son to discuss.? Continue with supportive environment.?? Monitor for gradual cognitive changes, increased need for services, and weight loss related to progressive disease process.? Abnormalities of Gait High risk of falls.?? Using walker today.?? Consider with medication adjustments.?? Parkinsons disease On Sinemet, records indicate he follows with neurology.?? Monitor for psychosis with use of Sinemet.? Concerns Related to Food or Fluid Intake Weight appears stable.?? Continue to monitor.? Depression Plan to continue with Celexa 20mg daily.?? Recommend starting Depakote, call placed to son. . 12/06/2021
[2023-02-11 22:25] VITALS: BP 88/59; PULSE 65; RESP 18; O2SAT 96
[2023-02-11 22:36] VITALS: BP 87/55; PULSE 66; RESP 18; O2SAT 98
[2023-02-11 22:50] VITALS: BP 100/57; PULSE 70; RESP 18; O2SAT 98
--- NOTE | 2023-02-11 23:49 | ED.NURSE ---
Report to Lucy regarding ED visit. Patient placed in envelope sling. Educated on Sling.
--- NOTE | 2023-02-12 06:10 | ED.GENADULT ---
HPI - General Adult General Chief complaint: Fall/Minor Trauma Stated complaint: Fall Shoulder Pain/Hit head Time Seen by Provider: 02/11/23 21:00 History of Present Illness HPI narrative: 67-year-old man accompanied by his adult sons who collected in [facility] a [facility]. Has early onset Parkinson's. Apparently fell into a couch. He describes a trip and fall type event. Soreness is noted to have been present in the ribs. Not having difficulty breathing. Also pain in the right shoulder. His eye exam son and also notes that he had seen some puffiness in the supraclavicular area. I appreciate this is quite soft nontender Describe falling onto his right shoulder inside and had hit the catch. Is not having neck pain. There was no loss of consciousness. No headache. Related Data Home Medications Medication Instructions Recorded Confirmed aspirin 81 mg tablet,delayed 81 mg PO DAILY 02/11/23 02/11/23 release (Adult Low Dose Aspirin) carbidopa 25 mg-levodopa 100 mg tab PO 02/11/23 tablet carbidopa ER 50 mg-levodopa 200 mg 1 tab PO QPM 02/11/23 02/11/23 tablet,extended release cholecalciferol (vitamin D3) 50 50 mcg PO DAILY 02/11/23 02/11/23 mcg (2,000 unit) chewable tablet citalopram 20 mg tablet 20 mg PO DAILY 02/11/23 02/11/23 divalproex 125 mg capsule,delayed mg PO BID 02/11/23 release sprinkle quetiapine 25 mg tablet 25 mg PO QPM 02/11/23 02/11/23 Allergies Allergy/AdvReac Type Severity Reaction Status Date / Time Penicillins Allergy Verified 02/11/23 20:52 Review of Systems Status of ROS: Reports: 6 or more systems reviewed and unremarkable except as noted in History and below PFSH PFSH Social History Smoking Status: Former smoker What tobacco products do you use: cigarettes Smoking quit date/years: <= 15 years ago Second hand tobacco smoke exposure: No How often do you have a drink containing alcohol: never How often do you have six or more drinks on one occasion: Never AUDIT-C Alcohol total score: 0 Non-prescribed substance use: denies use Exam Narrative: Exam Narrative: Pleasant. Little distracted. Breathing easily. Cranial nerves 2-12 look to be intact. Head is atraumatic. Neck is supple nontender. Back without evidence of injury and nontender. Lungs are clear maybe with some upper airway transmitted congestion though. Pain to point palpation in the mid right chest in the anterior axillary line. Negative to opposition compression testing. Most pain elicited on exam of the shoulder is with resisted internal rotation and unassisted internal rotation. Some pain to palpation also in the anterior deltoid. There is some soft puffiness of tissue without inflammatory change in the supraclavicular area on the right adjacent to the neck. Well-perfused peripherally. Generalized tremors activity consistent with Parkinson's diagnosis. Abdomen is soft and nontender without evidence of injury. While tremulous moving all extremities without difficulty. Actually able to abduct right shoulder without significant difficulty. Strong and equal radial pulses. Const: Vital Signs, click to edit/add: Vital Signs - 24 hr 02/11/23 20:53 02/11/23 22:25 02/11/23 22:36 Temperature 97.5 F L Pulse Rate [Pulse Oximeter] 69 65 66 Respiratory Rate 18 18 18 Blood Pressure [Le ft Upper Arm] 127/82 88/59 L 87/55 L Pulse Oximetry 98 96 98 Oxygen Delivery Me thod Room Air Room Air 02/11/23 22:50 Temperature Pulse Rate [Pulse Oximeter] 70 Respiratory Rate 18 Blood Pressure [Le ft Upper Arm] 100/57 L Pulse Oximetry 98 Oxygen Delivery Me thod Room Air Documenting provider has reviewed patient's vital signs: yes Course Vital Signs Vital signs: Initial Vital Signs Temperature 97.5 F L 02/11/23 20:53 Temperature Source Temporal Artery Scan 02/11/23 20:53 Pulse Rate 69 02/11/23 20:53 Pulse Rhythm Regular 02/11/23 20:53 Respiratory Rate 18 02/11/23 20:53 Blood Pressure 127/82 02/11/23 20:53 Blood Pressure Mean 97 02/11/23 20:53 Pulse Oximetry 98 02/11/23 20:53 Oxygen Delivery Method Room Air 02/11/23 20:53 Vital Signs Temperature 97.5 F L 02/11/23 20:53 Pulse Rate 69 02/11/23 20:53 Respiratory Rate 18 02/11/23 20:53 Blood Pressure 127/82 02/11/23 20:53 Pulse Oximetry 98 02/11/23 20:53 Oxygen Delivery Method Room Air 02/11/23 20:53 Temperature 97.5 F L 02/11/23 20:53 Pulse Rate 70 02/11/23 22:50 Respiratory Rate 18 02/11/23 22:50 Blood Pressure 100/57 L 02/11/23 22:50 Pulse Oximetry 98 02/11/23 22:50 Oxygen Delivery Method Room Air 02/11/23 22:50 Medical Decision Making MDM Narrative Medical decision making narrative: Does not want anything for pain or nausea. Does not appear to need head or neck imaging. I did propose imaging for shoulder evaluate for possible avulsion evidence of AC joint issue. I suspect right rib area bruise more than fracture. I requested right rib views with PA chest. This on my review shows postoperative changes and possibly some atelectatic changes in the lower lungs. Right shoulder also without acute bony abnormality and evidence of postoperative changes in remainder of exposure. Ordered an arm sling for Mr. Lucero for comfort. This is placed. He is anxious to return home. Discharge Plan Discharge Clinical Impression: Rib contusion, Right shoulder strain, Fall Patient Disposition: Home w/ Parent or Adult Condition: Stable Instructions: Contusion in Adults (ED) Additional Instructions: Wear this arm sling for comfort over the next week or so. Remember to wear the strap more on your back than on your neck. See handout for exercises I think that all help you avoid a frozen shoulder. I think you did strain one of the muscles of the rotator cuff. If you are not clearly improved in a week, please follow-up. Try to ice the shoulder 2-3 times daily over the next few days. Prescriptions: No Action quetiapine 25 mg tablet 25 mg PO QPM carbidopa-levodopa 50-200 mg tablet extended release 1 tab PO QPM citalopram 20 mg tablet 20 mg PO DAILY carbidopa-levodopa 25-100 mg tablet PO divalproex 125 mg capsule, delayed rel sprinkle PO BID aspirin [Adult Low Dose Aspirin] 81 mg tablet,delayed release (DR/EC) 81 mg PO DAILY cholecalciferol (vitamin D3) 50 mcg (2,000 unit) tablet,chewable 50 mcg PO DAILY Follow Up/Referrals: Provider,Not a Local [Primary Care Provider] - Stand Alone Forms: [employer] Info Instructions
== END 2023-02-11 23:49 | disposition home or self-care (01) ==
PROVIDERS: Emergency Provider Family Medicine
DX: S46.911A Strain of unspecified muscle, fascia and tendon at shoulder and upper arm level, right arm, initial encounter (principal); W01.0XXA Fall on same level from slipping, tripping and stumbling without subsequent striking against object, initial encounter; S20.211A Contusion of right front wall of thorax, initial encounter
CPT/HCPCS: 71101; 73030; 99284; A9270

== ENCOUNTER 2025-04-21 22:15 | Emergency (ER) | payer MEDICARE, MEDICAID, SELFPAY ==
--- OUTSIDE RECORDS SUMMARY | 2021-04-23 19:00 | XMS_ITS | CCD ---
Author Name Mellisa Fountain CNP Address [address] [facility] [address] [facility] [address] [place] [address] Phone Organization [facility] Phone Care Team Providers Care Test Design Engineer Name Role Phone Jin Flowers MD Primary Care Provider Unavailabl e Unavailable Chronic Care Management Unavaila ble Summary Purpose DataExchange Insurance Providers Payer name Policy type / Coverage type Covered alliance party ID Effective Begin Date Effective End Date [place] Medicare Part B [id number] Unknown Unkn own Family history Mother Diagnosis Age At Onset Arthritis Unknown Father Diagnosis Age At Onset Suicide Unknown Social History Social History Element Codes Description Effec tive Dates Alcohol history SNOMED CT: 961723 Currently drin ks alcohol Occ use only 04/23/2021 Marital status Unknown x2 04/22/2021 Living arrangements Unknown Memory Care 04/22/[address]: 2117659 Former smoker 04/22 Children Unknown Has Children 3 sons (Benjamin, Tuan and Enrique) 04/22/2021 Allergies, Adverse Reactions, Alerts Substance Reaction Codes Entered Date Inactivated Date Status Other: Unknown 04/11/2021 No Inactive Date Ac tive Penicillin Unknown 04/11/2021 No Inactive Date A ctive Problems Condition Codes Effective Dates Condition St atus Parkinson's disease Unknown 04/23/2021 Active Acute lacunar stroke ICD-10: I63.81 ICD-9: 434.91 04/23/2021 Active Dementia in other diseases classified elsewhere without behavioral disturbance ICD-10: F02.80 04/23/2021 Active Dementia with Lewy bodies ICD-10: G31.83 ICD-9: 331.82 04/23/2021 Active History of permanent cardiac pacemaker placement ICD-10: Z95.0 ICD-9: V45.01 04/23/2021 Active Parkinsons disease ICD-10: G20 ICD-9: 332.0 04/23/2021 Active Unsteadiness on feet ICD-10: R26.81 ICD-9: 781.2 04/23/2021 Active Weakness ICD-10: R53.1 04/23/2021 Active Weakness due to acute cerebrovascular accident (CVA) ICD-10: I63.9 ICD-9: 434.91 04/23/2021 Active Medications Medication Codes Instructions Start Date Stop Date Status Fill Instructions Inbrija 42 mg capsules for inhalation RxNorm: 7329332 Take 1 Capsule(s) Inhalation as needed 04/11/2021 No Stop Date Active Aspirin Low Dose 81 mg tablet,delayed release RxNorm: 843650 Take 1 Tablet(s) Oral QD 04/11/2021 No Stop Date Active carbidopa ER 50 mg-levodopa 200 mg tablet,extended release RxNorm: 840768 Take 1 Tablet(s) Oral QHS every night at bedtime 04/11/2021 No Stop Date Active carbidopa 25 mg-levodopa 100 mg tablet RxNorm: 207681 Take 2 Tablet(s) Oral Q4H every four hours 04/11/2021 No Stop Date Active Medication Administered No Medication Administered data Immunizations Vaccine Codes Dose Date Status Covid-19 CVX: 208 12/18/2020 Covid-19 CVX: 208 11/27/2020 Tdap CVX: 115 01/07/2016 Tetanus, Diptheria, Pertussis CVX: 115 2015 Results Observation Observation Code Item Item Code Result Date S ervice Location PHQ9 PHQ9 45988-0 3 04/23/2021 Unknown SLUMS SLUMS 98936-3 08/2404/23/2021 Unknown Procedures Procedure Codes Date SYS BP LESS 140 CPT-4: G8752 04/23/2021 LLANOS BP LESS 90 CPT-4: G8754 04/23/2021 PT INELIG NEG SCRN DEPRES SNOMED CT: 428 [id number] CPT-4: G8510 04/23/2021 FALL RISK ASSESSMENT DOCD CPT-4: 3288F 2020 Vital Signs Date Vital 04/23/2021 Blood Pressure 1: 121/79 Code: 8480-6 BMI: 30.3 Code: 84736-2 Heart Rate 1: 67 bpm Code: 8867-4 Height: 5'9 Code: 8302-2 Respiratory Rate: 17 bpm Temperature: 36.3 (C) / 97.4 (F) Weight: 205 lbs Code: 3141-9 Reason For Visit No Reason For Visit data Encounters Encounter Performer Location Codes Date () DOMICIL VISIT NEW PAT Diagnosis: Parkinsons disease[ICD10: G20] Diagnosis: Acute lacunar stroke[ICD10: I63.81] Diagnosis: Weakness[ICD10: R53.1] Diagnosis: Weakness due to acute cerebrovascular accident (CVA)[ICD10: I63.9] Diagnosis: Unsteadiness on feet[ICD10: R26.81] Diagnosis: Dementia in other diseases classified elsewhere without behavioral disturbance[ICD10: F02.80] Diagnosis: Dementia with Lewy bodies[ICD10: G31.83] Diagnosis: History of permanent cardiac pacemaker placement[ICD10: Z95.0] Mellisa Fountain [facility] CPT-4: 74825 04/23/2021 Plan of Care Planned Activity Notes Codes Status Date Visit Plan: 04/23/2021 Patient Education: Patient Medication Summary Completed 04/23/2021 Patient Education: Influenza Vaccine Completed 04/23/2021 Patient Education: Alzheimer''s Disease Completed 04/23/2021 Patient Education: Dementia Complete d 04/23/2021
--- OUTSIDE RECORDS SUMMARY | 2021-08-06 19:00 | XMS_ITS | CCD ---
Author Organization Unknown Care Team Providers Care Primary Teacher Name Role Phone Jin Flowers MD Primary Care Provider Unavailabl e Unavailable Chronic Care Management Unavaila ble Summary Purpose DataExchange Insurance Providers Payer name Policy type / Coverage type Covered constitution party ID Effective Begin Date Effective End Date [place] Medicare Part B [id number] Unknown Unkn own Family history Mother Diagnosis Age At Onset Arthritis Unknown Father Diagnosis Age At Onset Suicide Unknown Social History Social History Element Codes Description Effec tive Dates Alcohol history SNOMED CT: 672047 Currently drin ks alcohol Occ use only 04/23/2021 Marital status Unknown x2 04/22/2021 Living arrangements Unknown Memory Care 04/22/[address]: 8531961 Former smoker 04/22 Children Unknown Has Children 3 sons (Benjamin, Tuan and Enrique) 04/22/2021 Allergies, Adverse Reactions, Alerts Substance Reaction Codes Entered Date Inactivated Date Status Other: Unknown 04/11/2021 No Inactive Date Ac tive Penicillin Unknown 04/11/2021 No Inactive Date A ctive Problems Condition Codes Effective Dates Condition St atus Dementia in other diseases classified elsewhere without behavioral disturbance ICD-10: F02.80 08/07/2021 Active Dementia with Lewy bodies ICD-10: G31.83 ICD-9: 331.82 08/07/2021 Active Parkinsons disease ICD-10: G20 ICD-9: 332.0 08/07/2021 Active Unsteadiness on feet ICD-10: R26.81 ICD-9: 781.2 08/07/2021 Active Weight loss ICD-10: R63.4 ICD-9: 783.21 08/07/2021 Active Acute lacunar stroke ICD-10: I63.81 ICD-9: 434.91 07/08/2021 Active History of permanent cardiac pacemaker placement ICD-10: Z95.0 ICD-9: V45.01 07/08/2021 Active Weakness due to acute cerebrovascular accident (CVA) ICD-10: I63.9 ICD-9: 434.91 07/08/2021 Active Weakness ICD-10: R53.1 06/05/2021 Active Parkinson's disease Unknown 04/23/2021 Active Medications Medication Codes Instructions Start Date Stop Date Status Fill Instructions citalopram 20 mg tablet RxNorm: 769876 Take 1 Tablet(s) Oral QD 1 08/01/20 22 Active citalopram 20 mg tablet RxNorm: 644342 Take 1 Tablet(s) Oral QD 08/07/20 21 Inactive Inbrija 42 mg capsules for inhalation RxNorm: 3223641 Take 1 Capsule(s) Inhalation as needed 1 No Stop Date Active Aspirin Low Dose 81 mg tablet,delayed release RxNorm: 106300 Take 1 Tablet(s) Oral QD 1 No Stop Date Active carbidopa ER 50 mg-levodopa 200 mg tablet,extended release RxNorm: 625473 Take 1 Tablet(s) Oral QHS every night at bedtime 1 No Stop Date Active carbidopa 25 mg-levodopa 100 mg tablet RxNorm: 030230 Take 2 Tablet(s) Oral Q4H every four hours 1 No Stop Date Active Medication Administered No Medication Administered data Immunizations Vaccine Codes Dose Date Status Covid-19 CVX: 208 12/18/2020 Covid-19 CVX: 208 11/27/2020 Tdap CVX: 115 01/07/2016 Tetanus, Diptheria, Pertussis CVX: 115 2015 Reason For Visit No Reason For Visit data
--- OUTSIDE RECORDS SUMMARY | 2021-08-08 19:00 | XMS_ITS | CCD ---
Author Name May Hannon CNP Address [address] [facility] [address] [place] [address] Phone Organization [facility] Phone Care Team Providers Care Swatch Paster Name Role Phone Jin Flowers MD Primary Care Provider Unavailabl e Unavailable Chronic Care Management Unavaila ble Summary Purpose DataExchange Insurance Providers Payer name Policy type / Coverage type Covered libertarian ID Effective Begin Date Effective End Date [place] Medicare Part B [id number] Unknown Unkn own Family history Mother Diagnosis Age At Onset Arthritis Unknown Father Diagnosis Age At Onset Suicide Unknown Social History Social History Element Codes Description Effec tive Dates Alcohol history SNOMED CT: 694976 Currently drin ks alcohol Occ use only 04/23/2021 Marital status Unknown x2 04/22/2021 Living arrangements Unknown Memory Care 04/22/[address]: 5567635 Former smoker 04/22 Children Unknown Has Children [...] Fill Instructions citalopram 20 mg tablet RxNorm: 995127 Take 1 Tablet(s) Oral QD 08/01/20 22 Active citalopram 20 mg tablet RxNorm: 781475 Take 1 Tablet(s) Oral QD 08/07/20 21 Inactive Inbrija 42 mg capsules for inhalation RxNorm: 0966433 Take 1 Capsule(s) Inhalation as needed No Stop Date Active Aspirin Low Dose 81 mg tablet,delayed release RxNorm: 545714 Take 1 Tablet(s) Oral QD 1 No Stop Date Active carbidopa ER 50 mg-levodopa 200 mg tablet,extended release RxNorm: 430853 Take 1 Tablet(s) Oral QHS every night at bedtime 1 No Stop Date Active carbidopa 25 mg-levodopa 100 mg tablet RxNorm: 585215 Take 2 Tablet(s) Oral Q4H every four hours 1 No Stop Date Active Medication Administered No Medication Administered data Immunizations Vaccine Codes Dose Date Status Covid-19 CVX: 208 12/18/2020 Covid-19 CVX: 208 11/27/2020 Tdap CVX: 115 01/07/2016 Tetanus, Diptheria, Pertussis CVX: 115 2015 Results Observation Observation Code Item Item Code Result Date S ervice Location PHQ9 PHQ9 53108-0 3 08/07/2021 Unknown SLUMS SLUMS 88866-5 06/24 (Agitated) 08/07/2021 Unknown Procedures Procedure Codes Date PPPS, SUBSEQ VISIT SNOMED CT: 530331168 338048 CPT-4: G0439 08/07/2021 SYS BP LESS 140 CPT-4: G8752 08/07/2021 LLANOS BP LESS 90 CPT-4: G8754 08/07/2021 ADVNC CARE PLAN IN RCRD CPT-4: 1157F 08/07/20 21 FXNL STATUS ASSESSED CPT-4: 1170F 08/07/2021 AMNT PAIN NOTED NONE PRSNT CPT-4: 1126F 08/07 FALL RISK ASSESSMENT DOCD CPT-4: 3288F 2020 PT INELIG NEG SCRN DEPRES SNOMED CT: 428 504183881539 CPT-4: G8510 08/07/2021 Vital Signs Date Vital 08/07/2021 Blood Pressure 1: 107/70 Code: 8480-6 BMI: 27.8 Code: 10839-7 Heart Rate 1: 71 bpm Code: 8867-4 Height: 5'9 Code: 8302-2 Respiratory Rate: 16 bpm Temperature: 36.5 (C) / 97.7 (F) Weight: 188 lbs Code: 3141-9 Reason For Visit No Reason For Visit data Encounters Encounter Performer Location Codes Date (78784) DOMICIL VISIT EST PAT Diagnosis: Parkinsons disease[ICD10: G20] Diagnosis: Dementia in other diseases classified elsewhere without behavioral disturbance[ICD10: F02.80] Diagnosis: Dementia with Lewy bodies[ICD10: G31.83] Diagnosis: Weight loss[ICD10: R63.4] Diagnosis: Unsteadiness on feet[ICD10: R26.81] May Hannon [facility] CPT-4: 47975 08/07/2021 Plan of Care Planned Activity Notes Codes Status Date Patient Education: Patient Medication Summary Completed 08/07/2021 Patient Education: Influenza Vaccine Completed 08/07/2021 Patient Education: Alzheimer''s Disease Completed 08/07/2021 Patient Education: Dementia Complete d 08/07/2021 Instructions Comment Date Concerns Related to Food or Fluid Intake Weight listed as 205 in March 2021. Now 188 lbs. Nursing to re-weigh. If weight accurate, consider adding protein supplement shake. Abnormalities of Gait Patient frequently ambulating without cane or walker. Continue to taper medications as able to reduce falls risk. Neurocognitive Disorders Increased exit seeking behaviors. Will increase celexa to 20mg daily and monitor. Parkinsons disease Patient safe and appropriate for environment. Continue to monitor for declines. . 08/07/2021
--- OUTSIDE RECORDS SUMMARY | 2021-08-26 19:00 | XMS_ITS | CCD ---
Author Name Mellisa Fountain CNP Address [address] [facility] [address] [place] [address] Phone Organization [facility] Phone Care Team Providers Care Amr Physician Name Role Phone Jin Flowers MD Primary Care Provider Unavailabl e Unavailable Chronic Care Management Unavaila ble Summary Purpose DataExchange Insurance Providers Payer name Policy type / Coverage type Covered constitution party ID Effective Begin Date Effective End Date [place] of [place] Medicare Part B [id number] Unknown Unkn own Family history Mother Diagnosis Age At Onset Arthritis Unknown Father Diagnosis Age At Onset Suicide Unknown Social History Social History Element Codes Description Effec tive Dates Alcohol history SNOMED CT: 069337 Currently drin ks alcohol Occ use only 04/23/2021 Marital status Unknown x2 04/22/2021 Living arrangements Unknown Memory Care 04/22/20 [address]: 7528557 Former smoker 04/22 Children Unknown Has Children 3 sons (Benjamin, Tuan and Enrique) 04/22/2021 Allergies, Adverse Reactions, Alerts Substance Reaction Codes Entered Date Inactivated Date Status Other: Unknown 04/11/2021 No Inactive Date Ac tive Penicillin Unknown 04/11/2021 No Inactive Date A ctive Problems Condition Codes Effective Dates Condition St atus Acute lacunar stroke ICD-10: I63.81 ICD-9: 434.91 08/27/2021 Active Dementia in other diseases classified elsewhere without behavioral disturbance ICD-10: F02.80 08/27/2021 Active Dementia with Lewy bodies ICD-10: G31.83 ICD-9: 331.82 08/27/2021 Active Parkinsons disease ICD-10: G20 ICD-9: 332.0 08/27/2021 Active Weakness due to acute cerebrovascular accident (CVA) ICD-10: I63.9 ICD-9: 434.91 08/27/2021 Active Unsteadiness on feet ICD-10: R26.81 ICD-9: 781.2 08/07/2021 Active Weight loss ICD-10: R63.4 ICD-9: 783.21 08/07/2021 Active History of permanent cardiac pacemaker placement ICD-10: Z95.0 ICD-9: V45.01 07/08/2021 Active Weakness ICD-10: R53.1 06/05/2021 Active Parkinson's disease Unknown 04/23/2021 Active Medications Medication Codes Instructions Start Date Stop Date Status Fill Instructions citalopram 20 mg tablet RxNorm: 622445 Take 1 Tablet(s) Oral QD 08/01/20 22 Active citalopram 20 mg tablet RxNorm: 292538 Take 1 Tablet(s) Oral QD 08/07/20 21 Inactive Inbrija 42 mg capsules for inhalation RxNorm: 4092652 Take 1 Capsule(s) Inhalation as needed 1 No Stop Date Active Aspirin Low Dose 81 mg tablet,delayed release RxNorm: 999807 Take 1 Tablet(s) Oral QD 1 No Stop Date Active carbidopa ER 50 mg-levodopa 200 mg tablet,extended release RxNorm: 090740 Take 1 Tablet(s) Oral QHS every night at bedtime 1 No Stop Date Active carbidopa 25 mg-levodopa 100 mg tablet RxNorm: 273776 Take 2 Tablet(s) Oral Q4H every four hours 1 No Stop Date Active Medication Administered No Medication Administered data Immunizations Vaccine Codes Dose Date Status Covid-19 CVX: 208 12/18/2020 Covid-19 CVX: 208 11/27/2020 Tdap CVX: 115 01/07/2016 Tetanus, Diptheria, Pertussis CVX: 115 2015 Vital Signs Date Vital 08/27/2021 Blood Pressure 1: 107/70 Code: 8480-6 BMI: 27.8 Code: 91572-8 Heart Rate 1: 71 bpm Code: 8867-4 Height: 5'9 Code: 8302-2 Respiratory Rate: 16 bpm SpO2: 95% Temperature: 36.0 (C) / 96.8 (F) Weight: 188 lbs Code: 3141-9 Reason For Visit No Reason For Visit data Encounters Encounter Performer Location Codes Date () DOMICIL VISIT EST PAT Diagnosis: Parkinsons disease[ICD10: G20] Diagnosis: Dementia with Lewy bodies[ICD10: G31.83] Diagnosis: Dementia in other diseases classified elsewhere without behavioral disturbance[ICD10: F02.80] Diagnosis: Weakness due to acute cerebrovascular accident (CVA)[ICD10: I63.9] Diagnosis: Acute lacunar stroke[ICD10: I63.81] Mellisa Essie [facility] CPT-4: 44426 08/27/2021 Plan of Care Planned Activity Notes Codes Status Date Patient Education: Patient Medication Summary Completed 08/27/2021 Patient Education: Influenza Vaccine Completed 08/27/2021 Patient Education: Alzheimer''s Disease Completed 08/27/2021 Patient Education: Dementia Complete d 08/27/2021 Instructions Comment Date Neurocognitive Disorders Less exit seeking noted with increase in citalopram. Monitor Closely need to adjust therapy Cerebrovascular Disease Continue medical management. Hx of CVA Continue medical management. Parkinsons disease Safe in / setting with 24 hour nursing supervision. Anticipate ongoing cognitive and physical decline with disease progression. Continue current care plan and monitoring. Facility to update with any changes in the condition. . 08/27/2021
--- OUTSIDE RECORDS SUMMARY | 2021-11-05 19:00 | XMS_ITS | CCD ---
Author Name May Hannon CNP Address [address] [facility] [address] [place] [address] Phone Organization [facility] Phone Care Team Providers Care Gas Turbine Powerplant Mechanic Helper Name Role Phone Jin Flowers MD Primary Care Provider Unavailabl e Unavailable Chronic Care Management Unavaila ble Summary Purpose DataExchange Insurance Providers Payer name Policy type / Coverage type Covered green party ID Effective Begin Date Effective End Date [place] Medicare Part B [id number] Unknown Unkn own Family history Mother Diagnosis Age At Onset Arthritis Unknown Father Diagnosis Age At Onset Suicide Unknown Social History Social History Element Codes Description Effec tive Dates Alcohol history SNOMED CT: 883150 Currently drsaba ks alcohol Occ use only 04/23/2021 Marital status Unknown x2 04/22/2021 Living arrangements Unknown Memory Care 04/22/20 [address]: 2337179 Former smoker 04/22 Children Unknown Has Children 3 sons (Benjamin, Tuan and Enrique) 04/22/2021 Allergies, Adverse Reactions, Alerts Substance Reaction Codes Entered Date Inactivated Date Status Other: Unknown 04/11/2021 No Inactive Date Ac tive Penicillin Unknown 04/11/2021 No Inactive Date A ctive Problems Condition Codes Effective Dates Condition St atus COVID-19 ICD-10: U07.1 ICD-9: 079.89 11/05/2021 Active Dementia in other diseases classified elsewhere without behavioral disturbance ICD-10: F02.80 11/05/2021 Active Dementia with Lewy bodies ICD-10: G31.83 ICD-9: 331.82 11/05/2021 Active Parkinsons disease ICD-10: G20 ICD-9: 332.0 11/05/2021 Active Weight loss ICD-10: R63.4 ICD-9: 783.21 11/05/2021 Active Weakness ICD-10: R53.1 10/01/2021 Active Acute lacunar stroke ICD-10: I63.81 ICD-9: 434.91 08/27/2021 Active Weakness due to acute cerebrovascular accident (CVA) ICD-10: I63.9 ICD-9: 434.91 08/27/2021 Active Unsteadiness on feet ICD-10: R26.81 ICD-9: 781.2 08/07/2021 Active History of permanent cardiac pacemaker placement ICD-10: Z95.0 ICD-9: V45.01 07/08/2021 Active Parkinson's disease Unknown 04/23/2021 Active Medications Medication Codes Instructions Start Date Stop Date Status Fill Instructions citalopram 20 mg tablet RxNorm: 767781 Take 1 Tablet(s) Oral QD 1 08/01/20 22 Active citalopram 20 mg tablet RxNorm: 368229 Take 1 Tablet(s) Oral QD 1 08/07/20 21 Inactive Inbrija 42 mg capsules for inhalation RxNorm: 1245278 Take 1 Capsule(s) Inhalation as needed 1 No Stop Date Active Aspirin Low Dose 81 mg tablet,delayed release RxNorm: 071621 Take 1 Tablet(s) Oral QD 1 No Stop Date Active carbidopa ER 50 mg-levodopa 200 mg tablet,extended release RxNorm: 128042 Take 1 Tablet(s) Oral QHS every night at bedtime 1 No Stop Date Active carbidopa 25 mg-levodopa 100 mg tablet RxNorm: 770355 Take 2 Tablet(s) Oral Q4H every four hours 1 No Stop Date Active Medication Administered No Medication Administered data Immunizations Vaccine Codes Dose Date Status Covid-19 CVX: 208 12/18/2020 Covid-19 CVX: 208 11/27/2020 Tdap CVX: 115 01/07/2016 Tetanus, Diptheria, Pertussis CVX: 115 2015 Procedures Procedure Codes Date SYS BP LESS 140 CPT-4: G8752 11/05/2021 LLANOS BP LESS 90 CPT-4: G8754 11/05/2021 Vital Signs Date Vital 11/05/2021 Blood Pressure 1: 107/68 Code: 8480-6 BMI: 27.2 Code: 56766-9 Heart Rate 1: 76 bpm Code: 8867-4 Height: 5'9 Code: 8302-2 Respiratory Rate: 17 bpm Temperature: 37.1 (C) / 98.8 (F) Weight: 184 lbs 6 oz Code: 3141-9 Reason For Visit No Reason For Visit data Encounters Encounter Performer Location Codes Date () DOMICIL VISIT EST PAT Diagnosis: COVID-19[ICD10: U07.1] Diagnosis: Weight loss[ICD10: R63.4] Diagnosis: Dementia with Lewy bodies[ICD10: G31.83] Diagnosis: Dementia in other diseases classified elsewhere without behavioral disturbance[ICD10: F02.80] Diagnosis: Parkinsons disease[ICD10: G20] May Hannon [facility] CPT-4: 08285 11/05/2021 Plan of Care Planned Activity Notes Codes Status Date Patient Education: Patient Medication Summary Completed 11/05/2021 Patient Education: Influenza Vaccine Completed 11/05/2021 Patient Education: Alzheimer''s Disease Completed 11/05/2021 Patient Education: Dementia Complete d 11/05/2021 Instructions Comment Date Concerns Related to Food or Fluid Intake Monitor for weight losses with recent dx of covid-19. Continue to encourage adequate oral intake and hydration. Parkinsons disease Monitor for increased Parkinsonian symptoms. Continue current treatment regimen. Neurocognitive Disorders [facility] and [facility] referrals pending. Patient behaviors improved since he had been on isolation. Nursing to continue to monitor for concerns with sexual activities and vulnerable adults. COVID-19 Continue droplet isolation. Monitor for respiratory symptoms or declines. Continue to encourage adequate hydration and oral intake. . 11/05/2021
--- OUTSIDE RECORDS SUMMARY | 2021-12-02 19:00 | XMS_ITS | CCD ---
Author Name Mellisa Fountain CNP Address [address] [facility] [address] [place] [address] Phone Organization [facility] Phone Care Team Providers Care County Coroner Name Role Phone Jin Flowers MD Primary Care Provider Unavailabl e Unavailable Chronic Care Management Unavaila ble Summary Purpose DataExchange Insurance Providers Payer name Policy type / Coverage type Covered republican ID Effective Begin Date Effective End Date [place] of [place] Medicare Part B [id number] Unknown Unkn own Family history Mother Diagnosis Age At Onset Arthritis Unknown Father Diagnosis Age At Onset Suicide Unknown Social History Social History Element Codes Description Effec tive Dates Alcohol history SNOMED CT: 350241 Currently drin ks alcohol Occ use only 04/23/2021 Marital status Unknown x2 04/22/2021 Living arrangements Unknown Memory Care 04/22/[address]: 0050760 Former smoker 04/22 Children Unknown Has Children 3 sons (Benjamin, Tuan and Enrique) 04/22/2021 Allergies, Adverse Reactions, Alerts Substance Reaction Codes Entered Date Inactivated Date Status Other: Unknown 04/11/2021 No Inactive Date Ac tive Penicillin Unknown 04/11/2021 No Inactive Date A ctive Problems Condition Codes Effective Dates Condition St atus Dementia in other diseases classified elsewhere without behavioral disturbance ICD-10: F02.80 12/03/2021 Active Dementia with Lewy bodies ICD-10: G31.83 ICD-9: 331.82 12/03/2021 Active Major depress, 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 ICD-9: 296.25 12/03/2021 Active Parkinsons disease ICD-10: G20 ICD-9: 332.0 12/03/2021 Active Vitamin D deficiency ICD-10: E55.9 ICD-9: 268.9 12/03/2021 Active COVID-19 ICD-10: U07.1 ICD-9: 079.89 11/05/2021 Active Weight loss ICD-10: R63.4 ICD-9: [...] Fill Instructions citalopram 20 mg tablet RxNorm: 166567 Take 1 Tablet(s) Oral QD 1 08/01/20 22 Active citalopram 20 mg tablet RxNorm: 958523 Take 1 Tablet(s) Oral QD 1 08/07/20 21 Inactive Inbrija 42 mg capsules for inhalation RxNorm: 2289849 Take 1 Capsule(s) Inhalation as needed 1 No Stop Date Active Aspirin Low Dose 81 mg tablet,delayed release RxNorm: 912165 Take 1 Tablet(s) Oral QD 1 No Stop Date Active carbidopa ER 50 mg-levodopa 200 mg tablet,extended release RxNorm: 005127 Take 1 Tablet(s) Oral QHS every night at bedtime 1 No Stop Date Active carbidopa 25 mg-levodopa 100 mg tablet RxNorm: 752053 Take 2 Tablet(s) Oral Q4H every four hours 1 No Stop Date Active Medication Administered No Medication Administered data Immunizations Vaccine Codes Dose Date Status Covid-19 CVX: 208 12/18/2020 Covid-19 CVX: 208 11/27/2020 Tdap CVX: 115 01/07/2016 Tetanus, Diptheria, Pertussis CVX: 115 2015 Procedures Procedure Codes Date SYS BP LESS 140 CPT-4: G8752 12/03/2021 LLANOS BP LESS 90 CPT-4: G8754 12/03/2021 Vital Signs Date Vital 12/03/2021 Blood Pressure 1: 137/61 Code: 8480-6 BMI: 27.3 Code: 18468-9 Heart Rate 1: 77 bpm Code: 8867-4 Height: 5'9 Code: 8302-2 Respiratory Rate: 20 bpm Temperature: 36.7 (C) / 98.0 (F) Weight: 185 lbs Code: 3141-9 Reason For Visit No Reason For Visit data Encounters Encounter Performer Location Codes Date (81022) DOMICIL VISIT EST PAT Diagnosis: Parkinsons disease[ICD10: G20] Diagnosis: Dementia with Lewy bodies[ICD10: G31.83] Diagnosis: Dementia in other diseases classified elsewhere without behavioral disturbance[ICD10: F02.80] Diagnosis: Vitamin D deficiency[ICD10: E55.9] Diagnosis: Major depress, 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] Mellisa Essie [facility] CPT-4: 73519 12/03/2021 Plan of Care Planned Activity Notes Codes Status Date Patient Education: Patient Medication Summary Completed 12/03/2021 Patient Education: Influenza Vaccine Completed 12/03/2021 Patient Education: Alzheimer''s Disease Completed 12/03/2021 Patient Education: Dementia Complete d 12/03/2021 Instructions Comment Date Neurocognitive Disorders Appropriate for MC. Has fluctuating mood with intermittent agitation. Can be very possessive and combative along with boundary issues. Continue to monitor. Pleasant at visit today. Psych and BHI to see this week TSH ordered Vitamin D Deficiency Vit D level ordered Depression Intermittently agitated. BHI and Psych to see this week Parkinsons disease Check BMP and CBC. . 12/03/2021
--- OUTSIDE RECORDS SUMMARY | 2021-12-03 19:00 | XMS_ITS | CCD ---
Author Organization Unknown Care Team Providers Care Emergency Room Nurse Name Role Phone Jin Flowers MD Primary Care Provider Unavailabl e Unavailable Chronic Care Management Unavaila ble Summary Purpose DataExchange Insurance Providers Payer name Policy type / Coverage type Covered democrat ID Effective Begin Date Effective End Date [place] Medicare Part B [id number] Unknown Unkn own Family history Mother Diagnosis Age At Onset Arthritis Unknown Father Diagnosis Age At Onset Suicide Unknown Social History Social History Element Codes Description Effec tive Dates Alcohol history SNOMED CT: 404122 Currently drin ks alcohol Occ use only 04/23/2021 Marital status Unknown x2 04/22/2021 Living arrangements Unknown Memory Care 04/22/[address]: 2549889 Former smoker 04/22 Children Unknown Has Children [...] Fill Instructions citalopram 20 mg tablet RxNorm: 458108 Take 1 Tablet(s) Oral QD 1 08/01/20 22 Active citalopram 20 mg tablet RxNorm: 491457 Take 1 Tablet(s) Oral QD 1 08/07/20 21 Inactive Inbrija 42 mg capsules for inhalation RxNorm: 4735720 Take 1 Capsule(s) Inhalation as needed 1 No Stop Date Active Aspirin Low Dose 81 mg tablet,delayed release RxNorm: 817795 Take 1 Tablet(s) Oral QD 1 No Stop Date Active carbidopa ER 50 mg-levodopa 200 mg tablet,extended release RxNorm: 289877 Take 1 Tablet(s) Oral QHS every night at bedtime 1 No Stop Date Active carbidopa 25 mg-levodopa 100 mg tablet RxNorm: 327428 Take 2 Tablet(s) Oral Q4H every four hours 1 No Stop Date Active Medication Administered No Medication Administered data Immunizations Vaccine Codes Dose Date Status Covid-19 CVX: 208 12/18/2020 Covid-19 CVX: 208 11/27/2020 Tdap CVX: 115 01/07/2016 Tetanus, Diptheria, Pertussis CVX: 115 2015 Reason For Visit No Reason For Visit data
--- OUTSIDE RECORDS SUMMARY | 2021-12-21 19:00 | XMS_ITS | CCD ---
Author Name Jaylyn Bryant CNP Address [address] [facility] [address] [place] [address] Phone Organization [facility] Phone Care Team Providers Care Mens Locker Room Attendant Name Role Phone Jin Flowers MD Primary Care Provider Unavailabl e Unavailable Chronic Care Management Unavaila ble Summary Purpose DataExchange Insurance Providers Payer name Policy type / Coverage type Covered libertarian ID Effective Begin Date Effective End Date BCBS of [place] Medicare Part B [id number] Unknown Unkn own Family history Mother Diagnosis Age At Onset Arthritis Unknown Father Diagnosis Age At Onset Suicide Unknown Social History Social History Element Codes Description Effec tive Dates Alcohol history SNOMED CT: 349185 Currently drin ks alcohol Occ use only 04/23/2021 Marital status Unknown x2 04/22/2021 Living arrangements Unknown Memory Care 04/22/[address]: 7226067 Former smoker 04/22 Children Unknown Has Children 3 sons (Benjamin, Tuan and Enrique) 04/22/2021 Allergies, Adverse Reactions, Alerts Substance Reaction Codes Entered Date Inactivated Date Status Other: Unknown 04/11/2021 No Inactive Date Ac tive Penicillin Unknown 04/11/2021 No Inactive Date A ctive Problems Condition Codes Effective Dates Condition St atus Dementia with behavioral disturbance ICD -10: F03.91 ICD-9: 294.21 12/06/2021 Active Dementia with Lewy bodies ICD-10: G31.83 ICD-9: 331.82 12/06/2021 Active Major depress, 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 ICD-9: 296.25 12/06/2021 Active Parkinsons disease ICD-10: G20 ICD-9: 332.0 12/06/2021 Active Unsteadiness on feet ICD-10: R26.81 ICD-9: 781.2 12/06/2021 Active Weight loss ICD-10: R63.4 ICD-9: 783.21 12/06/2021 Active Dementia in other diseases classified elsewhere without behavioral disturbance ICD-10: F02.80 12/03/2021 Active Vitamin D deficiency ICD-10: E55.9 ICD-9: 268.9 12/03/2021 Active COVID-19 ICD-10: U07.1 ICD-9: 079.89 11/05/2021 Active Weakness ICD-10: R53.1 10/01/2021 Active Acute lacunar stroke ICD-10: I63.81 ICD-9: 434.91 08/27/2021 Active Weakness due to acute cerebrovascular accident (CVA) ICD-10: I63.9 ICD-9: 434.91 08/27/2021 Active History of permanent cardiac pacemaker placement ICD-10: Z95.0 ICD-9: V45.01 07/08/2021 Active Parkinson's disease Unknown 04/23/2021 Active Medications Medication Codes Instructions Start Date Stop Date Status Fill Instructions citalopram 20 mg tablet RxNorm: 690504 Take 1 Tablet(s) Oral QD 1 08/01/20 22 Active citalopram 20 mg tablet RxNorm: 521155 Take 1 Tablet(s) Oral QD 1 08/07/20 21 Inactive Inbrija 42 mg capsules for inhalation RxNorm: 3961233 Take 1 Capsule(s) Inhalation as needed 1 No Stop Date Active Aspirin Low Dose 81 mg tablet,delayed release RxNorm: 362834 Take 1 Tablet(s) Oral QD 1 No Stop Date Active carbidopa ER 50 mg-levodopa 200 mg tablet,extended release RxNorm: 123721 Take 1 Tablet(s) Oral QHS every night at bedtime 1 No Stop Date Active carbidopa 25 mg-levodopa 100 mg tablet RxNorm: 416954 Take 2 Tablet(s) Oral Q4H every four hours 1 No Stop Date Active Medication Administered No Medication Administered data Immunizations Vaccine Codes Dose Date Status Covid-19 CVX: 208 12/18/2020 Covid-19 CVX: 208 11/27/2020 Tdap CVX: 115 01/07/2016 Tetanus, Diptheria, Pertussis CVX: 115 03/14/ 2016 Vital Signs Date Vital 12/06/2021 Blood Pressure 1: 137/61 Code: 8480-6 BMI: 27.3 Code: 08616-4 Heart Rate 1: 77 bpm Code: 8867-4 Height: 5'9 Code: 8302-2 Respiratory Rate: 20 bpm Temperature: 36.4 (C) / 97.5 (F) Weight: 185 lbs Code: 3141-9 Reason For Visit No Reason For Visit data Encounters Encounter Performer Location Codes Date () PSYCH DIAG EVAL W/MED SRVCS Diagnosis: Dementia with behavioral disturbance[ICD10: F03.91] Diagnosis: Dementia with Lewy bodies[ICD10: G31.83] Diagnosis: Major depress, 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] Diagnosis: Parkinsons disease[ICD10: G20] Diagnosis: Weight loss[ICD10: R63.4] Diagnosis: Unsteadiness on feet[ICD10: R26.81] Jaylyn Manny [facility] CPT-4: 98204 12/06/2021 Plan of Care Planned Activity Notes Codes Status Date Patient Education: Patient Medication Summary Completed 12/06/2021 Patient Education: Influenza Vaccine Completed 12/06/2021 Patient Education: Alzheimer''s Disease Completed 12/06/2021 Patient Education: Dementia Complete d 12/06/2021 Instructions Comment Date Neurocognitive Disorders Recommend starting Depakote 125mg bid for impulsive behaviors, disinhibition, and mood stabilization. Message left for son to discuss. Continue with supportive environment. Monitor for gradual cognitive changes, increased need for services, and weight loss related to progressive disease process. Abnormalities of Gait High risk of falls. Using walker today. Consider with medication adjustments. Parkinsons disease On Sinemet, records indicate he follows with neurology. Monitor for psychosis with use of Sinemet. Concerns Related to Food or Fluid Intake Weight appears stable. Continue to monitor. Depression Plan to continue with Celexa 20mg daily. Recommend starting Depakote, call placed to son. . 12/06/2021
--- OUTSIDE RECORDS SUMMARY | 2022-02-26 22:19 | XMS_ITS | CCD ---
Author Name Jin Flowers MD Address [address] [facility] [address] [place] [address] Phone Organization [facility] Phone Care Team Providers Care Network Lead Name Role Phone Jin Flowers MD Primary Care Provider Unavailabl e Unavailable Chronic Care Management Unavaila ble Summary Purpose DataExchange Insurance Providers Payer name Policy type / Coverage type Covered libertarian ID Effective Begin Date Effective End Date [place] of [place] Medicare Part B [id number] Unknown Unkn own Family history Mother Diagnosis Age At Onset Arthritis Unknown Father Diagnosis Age At Onset Suicide Unknown Social History Social History Element Codes Description Effec tive Dates Alcohol history SNOMED CT: 573715 Currently drin ks alcohol Occ use only 04/23/2021 Marital status Unknown x2 04/22/2021 Living arrangements Unknown Memory Care 04/22/[address]: 7979876 Former smoker 04/22 Children Unknown Has Children 3 sons (Benjamin, Tuan and Enrique) 04/22/2021 Allergies, Adverse Reactions, Alerts Substance Reaction Codes Entered Date Inactivated Date Status Other: Unknown 04/11/2021 No Inactive Date Ac tive Penicillin Unknown 04/11/2021 No Inactive Date A ctive Problems Condition Codes Effective Dates Condition St atus Acute lacunar stroke ICD-10: I63.81 ICD-9: 434.91 07/08/2021 Active Dementia in other diseases classified elsewhere without behavioral disturbance ICD-10: F02.80 07/08/2021 Active Dementia with Lewy bodies ICD-10: G31.83 ICD-9: 331.82 07/08/2021 Active History of permanent cardiac pacemaker placement ICD-10: Z95.0 ICD-9: V45.01 07/08/2021 Active Weakness due to acute cerebrovascular accident (CVA) ICD-10: I63.9 ICD-9: 434.91 07/08/2021 Active Weakness ICD-10: R53.1 06/05/2021 Active Parkinson's disease Unknown 04/23/2021 Active Parkinsons disease ICD-10: G20 ICD-9: 332.0 04/23/2021 Active Unsteadiness on feet ICD-10: R26.81 ICD-9: 781.2 04/23/2021 Active Medications Medication Codes Instructions Start Date Stop Date Status Fill Instructions Inbrija 42 mg capsules for inhalation RxNorm: 2061444 Take 1 Capsule(s) Inhalation as needed 04/11/2021 No Stop Date Active Aspirin Low Dose 81 mg tablet,delayed release RxNorm: 271493 Take 1 Tablet(s) Oral QD 04/11/2021 No Stop Date Active carbidopa ER 50 mg-levodopa 200 mg tablet,extended release RxNorm: 164729 Take 1 Tablet(s) Oral QHS every night at bedtime 04/11/2021 No Stop Date Active carbidopa 25 mg-levodopa 100 mg tablet RxNorm: 712898 Take 2 Tablet(s) Oral Q4H every four hours 04/11/2021 No Stop Date Active Medication Administered No Medication Administered data Immunizations Vaccine Codes Dose Date Status Covid-19 CVX: 208 12/18/2020 Covid-19 CVX: 208 11/27/2020 Tdap CVX: 115 01/07/2016 Tetanus, Diptheria, Pertussis CVX: 115 2015 Results Observation Observation Code Item Item Code Result Date S ervice Location COVID-19 Virus PCR [id number] COVID-19 VIRUS PCR - RESULT Not Detected 07/31/20 21 Unknown Reason For Visit No Reason For Visit data
--- OUTSIDE RECORDS SUMMARY | 2022-02-26 22:19 | XMS_ITS | CCD ---
Author Name Jin Flowers MD Address [address] [facility] [address] [place] [address] Phone Organization [facility] Phone Care Team Providers Care Finish Photographer Name Role Phone Jin Flowers MD Primary Care Provider Unavailabl e Unavailable Chronic Care Management Unavaila ble Summary Purpose DataExchange Insurance Providers Payer name Policy type / Coverage type Covered libertarian ID Effective Begin Date Effective End Date [place] of [place] Medicare Part B [id number] Unknown Unkn own Family history Mother Diagnosis Age At Onset Arthritis Unknown Father Diagnosis Age At Onset Suicide Unknown Social History Social History Element Codes Description Effec tive Dates Alcohol history SNOMED CT: 141579 Currently drin ks alcohol Occ use only 04/23/2021 Marital status Unknown x2 04/22/2021 Living arrangements Unknown Memory Care 04/22/[address]: 1958266 Former smoker 04/22 Children Unknown Has Children [...] Inbrija 42 mg capsules for inhalation RxNorm: 8028730 Take 1 Capsule(s) Inhalation as needed 04/11/2021 No Stop Date Active Aspirin Low Dose 81 mg tablet,delayed release RxNorm: 510327 Take 1 Tablet(s) Oral QD 04/11/2021 No Stop Date Active carbidopa ER 50 mg-levodopa 200 mg tablet,extended release RxNorm: 682147 Take 1 Tablet(s) Oral QHS every night at bedtime 04/11/2021 No Stop Date Active carbidopa 25 mg-levodopa 100 mg tablet RxNorm: 978901 Take 2 Tablet(s) Oral Q4H every four hours 04/11/2021 No Stop Date Active Medication Administered No Medication Administered data Immunizations Vaccine Codes Dose Date Status Covid-19 CVX: 208 12/18/2020 Covid-19 CVX: 208 11/27/2020 Tdap CVX: 115 01/07/2016 Tetanus, Diptheria, Pertussis CVX: 115 2015 Procedures Procedure Codes Date SYS BP LESS 140 CPT-4: G8752 07/08/2021 LLANOS BP LESS 90 CPT-4: G8754 07/08/2021 Vital Signs Date Vital 07/08/2021 Blood Pressure 1: 110/80 Code: 8480-6 BMI: 29.0 Code: 63215-6 Heart Rate 1: 90 bpm Code: 8867-4 Height: 5'9 Code: 8302-2 Respiratory Rate: 17 bpm Temperature: 36.4 (C) / 97.6 (F) Weight: 196 lbs 4 oz Code: 3141-9 Reason For Visit No Reason For Visit data Encounters Encounter Performer Location Codes Date (02709) DOMICIL VISIT EST PAT Diagnosis: History of permanent cardiac pacemaker placement[ICD10: Z95.0] Diagnosis: Dementia in other diseases classified elsewhere without behavioral disturbance[ICD10: F02.80] Diagnosis: Dementia with Lewy bodies[ICD10: G31.83] Diagnosis: Weakness due to acute cerebrovascular accident (CVA)[ICD10: I63.9] Diagnosis: Acute lacunar stroke[ICD10: I63.81] Jin Flowers [facility] CPT-4: 12675 07/08/2021 Plan of Care Planned Activity Notes Codes Status Date Patient Education: Patient Medication Summary Completed 07/08/2021 Patient Education: Influenza Vaccine Completed 07/08/2021 Instructions Comment Date Neurocognitive Disorders No concerns per nursing about agitation. Continue on current regiment and continue to monitor. No medication changes were made today. Hx of CVA Patient stable with no concerns from nursing. Continue to monitor for any symptoms of thalamic infract. Cerebrovascular Disease Patient stable with no concerns from nursing. Continue to monitor for any symptoms of thalamic infract. History of permanent cardiac pacemaker placement Patient stable. No acute concerns and BP stable at 110/80. Continue to monitor. . 07/08/2021
--- OUTSIDE RECORDS SUMMARY | 2022-02-26 22:19 | XMS_ITS | CCD ---
Author Name Jin Flowers MD Address [address] [facility] [address] [place] [address] Phone Organization [facility] Phone Care Team Providers Care Montessori Teacher Name Role Phone Jin Flowers MD Primary Care Provider Unavailabl e Unavailable Chronic Care Management Unavaila ble Summary Purpose DataExchange Insurance Providers Payer name Policy type / Coverage type Covered green party ID Effective Begin Date Effective End Date BC[place] of [place] Medicare Part B [id number] Unknown Unkn own Family history Mother Diagnosis Age At Onset Arthritis Unknown Father Diagnosis Age At Onset Suicide Unknown Social History Social History Element Codes Description Effec tive Dates Alcohol history SNOMED CT: 977962 Currently drin ks alcohol Occ use only 04/23/2021 Marital status Unknown x2 04/22/2021 Living arrangements Unknown Memory Care 04/22/[address]: 3594979 Former smoker 04/22 Children Unknown Has Children [...] Inbrija 42 mg capsules for inhalation RxNorm: 8119525 Take 1 Capsule(s) Inhalation as needed 04/11/2021 No Stop Date Active Aspirin Low Dose 81 mg tablet,delayed release RxNorm: 476108 Take 1 Tablet(s) Oral QD 04/11/2021 No Stop Date Active carbidopa ER 50 mg-levodopa 200 mg tablet,extended release RxNorm: 066872 Take 1 Tablet(s) Oral QHS every night at bedtime 04/11/2021 No Stop Date Active carbidopa 25 mg-levodopa 100 mg tablet RxNorm: 774741 Take 2 Tablet(s) Oral Q4H every four hours 04/11/2021 No Stop Date Active Medication Administered No Medication Administered data Immunizations Vaccine Codes Dose Date Status Covid-19 CVX: 208 12/18/2020 Covid-19 CVX: 208 11/27/2020 Tdap CVX: 115 01/07/2016 Tetanus, Diptheria, Pertussis CVX: 115 2015 Results Observation Observation Code Item Item Code Result Date S ervice Location COVID-19 Virus PCR [id number] COVID-19 VIRUS PCR - RESULT Not Detected 07/19/20 Unknown Reason For Visit No Reason For Visit data
--- OUTSIDE RECORDS SUMMARY | 2022-02-26 22:19 | XMS_ITS | CCD ---
Author Name Jin Flowers MD Address [address] [facility] [address] [place] [address] Phone Organization [facility] Phone Care Team Providers Care Building Maintenance Worker Name Role Phone Jin Flowers MD Primary Care Provider Unavailabl e Unavailable Chronic Care Management Unavaila ble Summary Purpose DataExchange Insurance Providers Payer name Policy type / Coverage type Covered constitution party ID Effective Begin Date Effective End Date BCBS of [place] Medicare Part B [id number] Unknown Unkn own Family history Mother Diagnosis Age At Onset Arthritis Unknown Father Diagnosis Age At Onset Suicide Unknown Social History Social History Element Codes Description Effec tive Dates Alcohol history SNOMED CT: 146662 Currently drin ks alcohol Occ use only 04/23/2021 Marital status Unknown x2 04/22/2021 Living arrangements Unknown Memory Care 04/22/[address]: 3809800 Former smoker 04/22 Children Unknown Has Children [...] Inbrija 42 mg capsules for inhalation RxNorm: 3160440 Take 1 Capsule(s) Inhalation as needed 04/11/2021 No Stop Date Active Aspirin Low Dose 81 mg tablet,delayed release RxNorm: 368260 Take 1 Tablet(s) Oral QD 04/11/2021 No Stop Date Active carbidopa ER 50 mg-levodopa 200 mg tablet,extended release RxNorm: 168836 Take 1 Tablet(s) Oral QHS every night at bedtime 04/11/2021 No Stop Date Active carbidopa 25 mg-levodopa 100 mg tablet RxNorm: 240272 Take 2 Tablet(s) Oral Q4H every four hours 04/11/2021 No Stop Date Active Medication Administered No Medication Administered data Immunizations Vaccine Codes Dose Date Status Covid-19 CVX: 208 12/18/2020 Covid-19 CVX: 208 11/27/2020 Tdap CVX: 115 01/07/2016 Tetanus, Diptheria, Pertussis CVX: 115 2015 Results Observation Observation Code Item Item Code Result Date S ervice Location COVID-19 Virus PCR [id number] COVID-19 VIRUS PCR - RESULT Not Detected 08/07/20 Unknown Reason For Visit No Reason For Visit data
--- OUTSIDE RECORDS SUMMARY | 2022-02-26 22:19 | XMS_ITS | CCD ---
Author Name Jin Flowers MD Address [address] [facility] [address] [place] [address] [facility] Phone Care Team Providers Care Newspaper Columnist Name Role Phone Jin Flowers MD Primary Care Provider Unavailabl e Unavailable Chronic Care Management Unavaila ble Summary Purpose DataExchange Insurance Providers Payer name Policy type / Coverage type Covered libertarian ID Effective Begin Date Effective End Date BCBS of [place] Medicare Part B [id number] Unknown Unkn own Family history Mother Diagnosis Age At Onset Arthritis Unknown Father Diagnosis Age At Onset Suicide Unknown Social History Social History Element Codes Description Effec tive Dates Alcohol history SNOMED CT: 240502 Currently drin ks alcohol Occ use only 04/23/2021 Marital status Unknown x2 04/22/2021 Living arrangements Unknown Memory Care 04/22/[address]: 9650968 Former smoker 04/22 Children Unknown Has Children 3 sons (Benjamin, Tuan and Enrique) 04/22/2021 Allergies, Adverse Reactions, Alerts Substance Reaction Codes Entered Date Inactivated Date Status Other: Unknown 04/11/2021 No Inactive Date Ac tive Penicillin Unknown 04/11/2021 No Inactive Date A ctive Problems Condition Codes Effective Dates Condition St atus Acute lacunar stroke ICD-10: I63.81 ICD-9: 434.91 06/05/2021 Active Dementia in other diseases classified elsewhere without behavioral disturbance ICD-10: F02.80 06/05/2021 Active Dementia with Lewy bodies ICD-10: G31.83 ICD-9: 331.82 06/05/2021 Active Weakness ICD-10: R53.1 06/05/2021 Active Weakness due to acute cerebrovascular accident (CVA) ICD-10: I63.9 ICD-9: 434.91 06/05/2021 Active Parkinson's disease Unknown 04/23/2021 Active History of permanent cardiac pacemaker placement ICD-10: Z95.0 ICD-9: V45.01 04/23/2021 Active Parkinsons disease ICD-10: G20 ICD-9: 332.0 04/23/2021 Active Unsteadiness on feet ICD-10: R26.81 ICD-9: 781.2 04/23/2021 Active Medications Medication Codes Instructions Start Date Stop Date Status Fill Instructions Inbrija 42 mg capsules for inhalation RxNorm: 3735084 Take 1 Capsule(s) Inhalation as needed 04/11/2021 No Stop Date Active Aspirin Low Dose 81 mg tablet,delayed release RxNorm: 133460 Take 1 Tablet(s) Oral QD 04/11/2021 No Stop Date Active carbidopa ER 50 mg-levodopa 200 mg tablet,extended release RxNorm: 787553 Take 1 Tablet(s) Oral QHS every night at bedtime 04/11/2021 No Stop Date Active carbidopa 25 mg-levodopa 100 mg tablet RxNorm: 596815 Take 2 Tablet(s) Oral Q4H every four hours 04/11/2021 No Stop Date Active Medication Administered No Medication Administered data Immunizations Vaccine Codes Dose Date Status Covid-19 CVX: 208 12/18/2020 Covid-19 CVX: 208 11/27/2020 Tdap CVX: 115 01/07/2016 Tetanus, Diptheria, Pertussis CVX: 115 2015 Procedures Procedure Codes Date SYS BP LESS 140 CPT-4: G8752 06/05/2021 LLANOS BP LESS 90 CPT-4: G8754 06/05/2021 Vital Signs Date Vital 06/05/2021 Blood Pressure 1: 127/65 Code: 8480-6 BMI: 30.1 Code: 66770-9 Heart Rate 1: 85 bpm Code: 8867-4 Height: 5'9 Code: 8302-2 Respiratory Rate: 19 bpm Temperature: 36.3 (C) / 97.4 (F) Weight: 204 lbs 2 oz Code: 3141-9 Reason For Visit No Reason For Visit data Encounters Encounter Performer Location Codes Date (73242) DOMICIL VISIT EST PAT Diagnosis: Acute lacunar stroke[ICD10: I63.81] Diagnosis: Weakness due to acute cerebrovascular accident (CVA)[ICD10: I63.9] Diagnosis: Dementia in other diseases classified elsewhere without behavioral disturbance[ICD10: F02.80] Diagnosis: Dementia with Lewy bodies[ICD10: G31.83] Diagnosis: Weakness[ICD10: R53.1] Jin Flowers [facility] CPT-4: 19422 06/05/2021 Plan of Care Planned Activity Notes Codes Status Date Patient Education: Patient Medication Summary Completed 06/05/2021 Patient Education: Influenza Vaccine Completed 06/05/2021 Instructions Comment Date Cerebrovascular Disease Reviewed hospital records. CT of Head shows left thalamic infarct. Neurocognitive Disorders Nursing notes occasional behaviors with agitation, Family can usually calm down. Continue to monitor. No medication changes made. Malaise & Fatigue CBC and CMP from February 2021 hospitalization essentially normal. Hx of CVA Reviewed hospital records. CT of Head shows left thalamic infarct. . 06/05/2021
--- OUTSIDE RECORDS SUMMARY | 2022-02-26 22:19 | XMS_ITS | CCD ---
Author Name Jin Flowers MD Address [address] [facility] [address] [place] [address] Phone Organization [facility] Phone Care Team Providers Care Bait Digger Name Role Phone Jin Flowers MD Primary Care Provider Unavailabl e Unavailable Chronic Care Management Unavaila ble Summary Purpose DataExchange Insurance Providers Payer name Policy type / Coverage type Covered alliance party ID Effective Begin Date Effective End Date BCBS of [place] Medicare Part B [id number] Unknown Unkn own Family history Mother Diagnosis Age At Onset Arthritis Unknown Father Diagnosis Age At Onset Suicide Unknown Social History Social History Element Codes Description Effec tive Dates Alcohol history SNOMED CT: 420568 Currently drin ks alcohol Occ use only 04/23/2021 Marital status Unknown x2 04/22/2021 Living arrangements Unknown Memory Care 04/22/[address]: 7209667 Former smoker 04/22 Children Unknown Has Children [...] Inbrija 42 mg capsules for inhalation RxNorm: 5631756 Take 1 Capsule(s) Inhalation as needed 04/11/2021 No Stop Date Active Aspirin Low Dose 81 mg tablet,delayed release RxNorm: 414468 Take 1 Tablet(s) Oral QD 04/11/2021 No Stop Date Active carbidopa ER 50 mg-levodopa 200 mg tablet,extended release RxNorm: 174803 Take 1 Tablet(s) Oral QHS every night at bedtime 04/11/2021 No Stop Date Active carbidopa 25 mg-levodopa 100 mg tablet RxNorm: 454719 Take 2 Tablet(s) Oral Q4H every four hours 04/11/2021 No Stop Date Active Medication Administered No Medication Administered data Immunizations Vaccine Codes Dose Date Status Covid-19 CVX: 208 12/18/2020 Covid-19 CVX: 208 11/27/2020 Tdap CVX: 115 01/07/2016 Tetanus, Diptheria, Pertussis CVX: 115 2015 Results Observation Observation Code Item Item Code Result Date S vice Location COVID-19 Virus PCR [id number] SARS-COV2 PCR Negative Unknown Reason For Visit No Reason For Visit data
--- OUTSIDE RECORDS SUMMARY | 2022-02-26 22:20 | XMS_ITS | CCD ---
Author Name Jin Flowers MD Address [address] [facility] [address] [place] [address] Phone Organization [facility] Phone Care Team Providers Care Crusher And Blender Operator Name Role Phone Jin Flowers MD Primary Care Provider Unavailabl e Unavailable Chronic Care Management Unavaila ble Summary Purpose DataExchange Insurance Providers Payer name Policy type / Coverage type Covered democrat ID Effective Begin Date Effective End Date BCBS of [place] Medicare Part B [id number] Unknown Unkn own Family history Mother Diagnosis Age At Onset Arthritis Unknown Father Diagnosis Age At Onset Suicide Unknown Social History Social History Element Codes Description Effec tive Dates Alcohol history SNOMED CT: 894462 Currently drin ks alcohol Occ use only 04/23/2021 Marital status Unknown x2 04/22/2021 Living arrangements Unknown Memory Care 04/22/[address]: 8390955 Former smoker 04/22 Children Unknown Has Children 3 sons (Benjamin, Tuan and Enrique) 04/22/2021 Allergies, Adverse Reactions, Alerts Substance Reaction Codes Entered Date Inactivated Date Status Other: Unknown 04/11/2021 No Inactive Date Ac tive Penicillin Unknown 04/11/2021 No Inactive Date A ctive Problems Condition Codes Effective Dates Condition St atus Dementia in other diseases classified elsewhere without behavioral disturbance ICD-10: F02.80 01/07/2022 Active Dementia with behavioral disturbance ICD -10: F03.91 ICD-9: 294.21 01/07/2022 Active Dementia with Lewy bodies ICD-10: G31.83 ICD-9: 331.82 01/07/2022 Active Parkinson disease ICD-10: G20 ICD-9: 332.0 01/07/2022 Active Vitamin D deficiency ICD-10: E55.9 ICD-9: 268.9 01/07/2022 Active Weakness ICD-10: R53.1 01/07/2022 Active Major depress, 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 ICD-9: 296.25 12/06/2021 Active Unsteadiness on feet ICD-10: R26.81 ICD-9: 781.2 12/06/2021 Active Weight loss ICD-10: R63.4 ICD-9: 783.21 12/06/2021 Active COVID-19 ICD-10: U07.1 ICD-9: 079.89 11/05/2021 Active Acute lacunar stroke ICD-10: I63.81 ICD-9: 434.91 08/27/2021 Active Weakness due to acute cerebrovascular accident (CVA) ICD-10: I63.9 ICD-9: 434.91 08/27/2021 Active History of permanent cardiac pacemaker placement ICD-10: Z95.0 ICD-9: V45.01 07/08/2021 Active Parkinson's disease Unknown 04/23/2021 Active Medications Medication Codes Instructions Start Date Stop Date Status Fill Instructions citalopram 20 mg tablet RxNorm: 746821 Take 1 Tablet(s) Oral QD 1 08/01/20 22 Active citalopram 20 mg tablet RxNorm: 082880 Take 1 Tablet(s) Oral QD 1 08/07/20 21 Inactive Inbrija 42 mg capsules for inhalation RxNorm: 3681676 Take 1 Capsule(s) Inhalation as needed 1 No Stop Date Active Aspirin Low Dose 81 mg tablet,delayed release RxNorm: 638730 Take 1 Tablet(s) Oral QD 1 No Stop Date Active carbidopa ER 50 mg-levodopa 200 mg tablet,extended release RxNorm: 426179 Take 1 Tablet(s) Oral QHS every night at bedtime 1 No Stop Date Active carbidopa 25 mg-levodopa 100 mg tablet RxNorm: 454873 Take 2 Tablet(s) Oral Q4H every four hours 1 No Stop Date Active Medication Administered No Medication Administered data Immunizations Vaccine Codes Dose Date Status Covid-19 CVX: 208 12/18/2020 Covid-19 CVX: 208 11/27/2020 Tdap CVX: 115 01/07/2016 Tetanus, Diptheria, Pertussis CVX: 115 2015 Procedures Procedure Codes Date SYS BP LESS 140 CPT-4: G8752 01/07/2022 LLANOS BP LESS 90 CPT-4: G8754 01/07/2022 Vital Signs Date Vital 01/07/2022 Blood Pressure 1: 131/77 Code: 8480-6 BMI: 26.3 Code: 95393-3 Heart Rate 1: 76 bpm Code: 8867-4 Height: 5'9 Code: 8302-2 Respiratory Rate: 18 bpm SpO2: 94% Temperature: 36.6 (C) / 97.8 (F) Weight: 178 lbs Code: 3141-9 Reason For Visit No Reason For Visit data Encounters Encounter Performer Location Codes Date () DOMICIL VISIT EST PAT Diagnosis: Dementia in other diseases classified elsewhere without behavioral disturbance[ICD10: F02.80] Diagnosis: Dementia with behavioral disturbance[ICD10: F03.91] Diagnosis: Dementia with Lewy bodies[ICD10: G31.83] Diagnosis: Vitamin D deficiency[ICD10: E55.9] Diagnosis: Parkinson disease[ICD10: G20] Diagnosis: Weakness[ICD10: R53.1] Jin Lionel [facility] CPT-4: 42059 022 Plan of Care Planned Activity Notes Codes Status Date Patient Education: Patient Medication Summary Completed 01/07/2022 Patient Education: Influenza Vaccine Completed 01/07/2022 Instructions Comment Date Neurocognitive Disorders Safe in [facility]/ setting with 24 hour nursing supervision. Anticipate ongoing cognitive and physical decline with disease progression. Continue current care plan and monitoring. Facility to update with any changes in the condition. TSH was stable at 1.35 from routine labs. Vitamin D Deficiency Vitamin D level was low at 12. Started the patient on a vitamin D supplement of 50,000 units weekly for 8 weeks then the patient will be on 2,000 units daily. Continue to monitor with routine labs. Malaise & Fatigue Pain level overall well controlled on current regimen. Taper/adjust meds prn for adequate pain control. Consult PT/OT when appropriate. Parkinson disease Patient stable reviewed CBC and BMP. Continue with current treatment plan and to monitor. . 01/07/2022
--- OUTSIDE RECORDS SUMMARY | 2022-02-26 22:23 | XMS_ITS | CCD ---
Author Name Jin Flowers MD Address [address] [facility] [address] [place] [address] Phone Organization [facility] Phone Care Team Providers Care Sail Finisher Machine Name Role Phone Jin Flowers MD Primary Care Provider Unavailabl e Unavailable Chronic Care Management Unavaila ble Summary Purpose DataExchange Insurance Providers Payer name Policy type / Coverage type Covered alliance party ID Effective Begin Date Effective End Date BCBS of [place] Medicare Part B [id number] Unknown Unkn own Family history Mother Diagnosis Age At Onset Arthritis Unknown Father Diagnosis Age At Onset Suicide Unknown Social History Social History Element Codes Description Effec tive Dates Alcohol history SNOMED CT: 992805 Currently drin ks alcohol Occ use only 04/23/2021 Marital status Unknown x2 04/22/2021 Living arrangements Unknown Memory Care 04/22/[address]: 3762173 Former smoker 04/22 Children Unknown Has Children 3 sons (Benjamin, Tuan and Enrique) 04/22/2021 Allergies, Adverse Reactions, Alerts Substance Reaction Codes Entered Date Inactivated Date Status Other: Unknown 04/11/2021 No Inactive Date Ac tive Penicillin Unknown 04/11/2021 No Inactive Date A ctive Problems Condition Codes Effective Dates Condition St atus Dementia in other diseases classified elsewhere without behavioral disturbance ICD-10: F02.80 10/01/2021 Active Dementia with Lewy bodies ICD-10: G31.83 ICD-9: 331.82 10/01/2021 Active Parkinsons disease ICD-10: G20 ICD-9: 332.0 10/01/2021 Active Weakness ICD-10: R53.1 10/01/2021 Active Weight loss ICD-10: R63.4 ICD-9: 783.21 10/01/2021 Active Acute lacunar stroke ICD-10: I63.81 [...] Fill Instructions citalopram 20 mg tablet RxNorm: 690121 Take 1 Tablet(s) Oral QD 1 08/01/20 22 Active citalopram 20 mg tablet RxNorm: 839765 Take 1 Tablet(s) Oral QD 08/07/20 21 Inactive Inbrija 42 mg capsules for inhalation RxNorm: 8223007 Take 1 Capsule(s) Inhalation as needed 1 No Stop Date Active Aspirin Low Dose 81 mg tablet,delayed release RxNorm: 894595 Take 1 Tablet(s) Oral QD 1 No Stop Date Active carbidopa ER 50 mg-levodopa 200 mg tablet,extended release RxNorm: 831133 Take 1 Tablet(s) Oral QHS every night at bedtime 1 No Stop Date Active carbidopa 25 mg-levodopa 100 mg tablet RxNorm: 576864 Take 2 Tablet(s) Oral Q4H every four hours 1 No Stop Date Active Medication Administered No Medication Administered data Immunizations Vaccine Codes Dose Date Status Covid-19 CVX: 208 12/18/2020 Covid-19 CVX: 208 11/27/2020 Tdap CVX: 115 01/07/2016 Tetanus, Diptheria, Pertussis CVX: 115 2015 Procedures Procedure Codes Date SYS BP LESS 140 CPT-4: G8752 10/01/2021 LLANOS BP LESS 90 CPT-4: G8754 10/01/2021 Vital Signs Date Vital 10/01/2021 Blood Pressure 1: 107/68 Code: 8480-6 Heart Rate 1: 76 bpm Code: 8867-4 Respiratory Rate: 17 bpm Temperature: 36.4 (C) / 97.6 (F) Weight: 184 lbs 4 oz Code: 3141-9 Reason For Visit No Reason For Visit data Encounters Encounter Performer Location Codes Date (92515) DOMICIL VISIT EST YOLI modifier Diagnosis: Dementia with Lewy bodies[ICD10: G31.83] Diagnosis: Dementia in other diseases classified elsewhere without behavioral disturbance[ICD10: F02.80] Diagnosis: Parkinsons disease[ICD10: G20] Diagnosis: Weakness[ICD10: R53.1] Diagnosis: Weight loss[ICD10: R63.4] Jin Flowers [facility] CPT-4: 00600 04/2021 Plan of Care Planned Activity Notes Codes Status Date Patient Education: Patient Medication Summary Completed 10/01/2021 Patient Education: Influenza Vaccine Completed 10/01/2021 Instructions Comment Date Parkinsons disease Patient stable. No acute concerns. No medication changes made. Malaise & Fatigue Stable. No acute concerns. Continue to monitor. Neurocognitive Disorders Nursing staff notes patient is bringing female residents into his room. He is on SSRI, citalopram to reduce libido. Nursing to monitor for any issues regarding potential sexual activity and vulnerable adults. Concerns Related to Food or Fluid Intake Weight stable. Continue to monitor. . 10/01/2021
--- OUTSIDE RECORDS SUMMARY | 2022-02-28 14:09 | XMS_ITS | CCD ---
Author Name Mellisa Fountain CNP Address [address] [facility] [address] [place] [address] Phone Organization [facility] Phone Care Team Providers Care Director Of Supply Chain Name Role Phone Jin Flowers MD Primary Care Provider Unavailabl e Unavailable Chronic Care Management Unavaila ble Summary Purpose DataExchange Insurance Providers Payer name Policy type / Coverage type Covered republican ID Effective Begin Date Effective End Date BCBS of [place] Medicare Part B [id number] Unknown Unkn own Family history Mother Diagnosis Age At Onset Arthritis Unknown Father Diagnosis Age At Onset Suicide Unknown Social History Social History Element Codes Description Effec tive Dates Alcohol history SNOMED CT: 016979 Currently drin ks alcohol Occ use only 04/23/2021 Marital status Unknown x2 04/22/2021 Living arrangements Unknown Memory Care 04/22/[address]: 8873912 Former smoker 04/22 Children Unknown Has Children [...] Fill Instructions citalopram 20 mg tablet RxNorm: 334805 Take 1 Tablet(s) Oral QD 1 08/01/20 22 Active citalopram 20 mg tablet RxNorm: 274681 Take 1 Tablet(s) Oral QD 1 08/07/20 21 Inactive Inbrija 42 mg capsules for inhalation RxNorm: 1878196 Take 1 Capsule(s) Inhalation as needed 1 No Stop Date Active Aspirin Low Dose 81 mg tablet,delayed release RxNorm: 760657 Take 1 Tablet(s) Oral QD 1 No Stop Date Active carbidopa ER 50 mg-levodopa 200 mg tablet,extended release RxNorm: 588896 Take 1 Tablet(s) Oral QHS every night at bedtime 1 No Stop Date Active carbidopa 25 mg-levodopa 100 mg tablet RxNorm: 771217 Take 2 Tablet(s) Oral Q4H every four hours 1 No Stop Date Active Medication Administered No Medication Administered data Immunizations Vaccine Codes Dose Date Status Covid-19 CVX: 208 12/18/2020 Covid-19 CVX: 208 11/27/2020 Tdap CVX: 115 01/07/2016 Tetanus, Diptheria, Pertussis CVX: 115 2015 Results Observation Observation Code Item Item Code Result Date Service Location Vitamin D Deficiency [id number] VITAMIN D DEFICIENCY SCREENING 12 ug/L 12/06/19 22 Unknown TSH JEI494 TSH LHE 04994-5 1.35 uIU/mL 12/05/19 22 Unknown CBC with Platelets Differential QVR457 WBC COUNT (AUTOMATED) 7.3 10e3/uL 12/05/19 22 Unknown CBC with Platelets Differential WGS405 RBC COUNT 789-8 4.54 10e6/uL 12/05/19 22 Unknown CBC with Platelets Differential GQV754 Hemoglobin 718-7 14.2 g/dL 12/05/19 22 Unknown CBC with Platelets Differential XDW263 Hematocrit 4544-3 43.7 % 12/05/19 22 Unknown CBC with Platelets Differential ATR729 MCV 787-2 96 fL 12/05/19 22 Unknown CBC with Platelets Differential INF167 MCH 31.3 pg 12/05/19 22 Unknown CBC with Platelets Differential EMA673 MCHC 32.5 g/dL 12/05/19 22 Unknown CBC with Platelets Differential XQB521 RDW 13.6 % 12/05/19 22 Unknown CBC with Platelets Differential LTR300 Platelet Count 777-3 193 10e3/uL 12/05/19 22 Unknown CBC with Platelets Differential UZM915 % NEUTROPHILS AUTO 60 % 12/05/19 22 Unknown CBC with Platelets Differential SXA251 % LYMPHOCYTES AUTO 26 % 12/05/19 22 Unknown CBC with Platelets Differential ZWH401 % MONOCYTES AUTO 8 % 12/05/19 22 Unknown CBC with Platelets Differential ISV310 % EOSINOPHILS AUTO 5 % 12/05/19 22 Unknown CBC with Platelets Differential QPQ764 % BASOPHILS AUTO 1 % 12/05/19 22 Unknown CBC with Platelets Differential GNK840 % IMMATURE GRANULOCYTES AUTO 0 % 12/05/19 22 Unknown CBC with Platelets Differential PCE832 NRBCS PER 100 WBC AUTO 0 /100 12/05/19 22 Unknown CBC with Platelets Differential JCA601 ABSOLUTE NEUTROPHILS AUTO 4.4 10e3/uL 12/05/19 22 Unknown CBC with Platelets Differential XQH259 ABSOLUTE LYMPHOCYTES AUTO 1.9 10e3/uL 12/05/19 22 Unknown CBC with Platelets Differential QPO124 ABSOLUTE MONOCYTES AUTO 0.6 10e3/uL 12/05/19 22 Unknown CBC with Platelets Differential VSA619 ABSOLUTE EOSINOPHILS AUTO 0.4 10e3/uL 12/05/19 22 Unknown CBC with Platelets Differential OGG256 ABSOLUTE BASOPHILS AUTO 0.0 10e3/uL 12/05/19 22 Unknown CBC with Platelets Differential XWX432 ABSOLUTE IMMATURE GRANULOCYTES AUTO 0.0 10e3/uL 12/05/19 22 Unknown CBC with Platelets Differential EOF707 NRBCS ABSOLUTE 0.0 10e3/uL 12/05/19 Unknown Basic Metabolic Panel LAB15 Sodium 2951-2 139 mmol/L 12/05/19 22 Unknown Basic Metabolic Panel LAB15 Potassium 2823-3 4.2 mmol/L 12/05/19 22 Unknown Basic Metabolic Panel LAB15 Chloride 2075-0 104 mmol/L 12/05/19 22 Unknown Basic Metabolic Panel LAB15 CO2 25 mmol/L 12/05/19 22 Unknown Basic Metabolic Panel LAB15 ANION GAP 44282-4 10 mmol/L 12/05/19 22 Unknown Basic Metabolic Panel LAB15 Urea Nitrogen 20 mg/dL 12/05/19 22 Unknown Basic Metabolic Panel LAB15 Creatinine 2160-0 0.83 mg/dL 12/05/19 22 Unknown Basic Metabolic Panel LAB15 Calcium 33296-2 9.2 mg/dL 12/05/19 22 Unknown Basic Metabolic Panel LAB15 Glucose 86 mg/dL 12/05/19 22 Unknown Basic Metabolic Panel LAB15 GFR, ESTIMATE 34923-9 >90 mL/min/1.7 3m2 12/05/19 22 Unknown Reason For Visit No Reason For Visit data
--- OUTSIDE RECORDS SUMMARY | 2022-02-28 14:09 | XMS_ITS | CCD ---
Author Name Jin Flowers MD Address [address] [facility] [address] [place] [address] Phone Organization [facility] Phone Care Team Providers Care Commercial Energy Rater Name Role Phone Jin Flowers MD Primary Care Provider Unavailabl e Unavailable Chronic Care Management Unavaila ble Summary Purpose DataExchange Insurance Providers Payer name Policy type / Coverage type Covered libertarian ID Effective Begin Date Effective End Date BCBS of [place] Medicare Part B [id number] Unknown Unkn own Family history Mother Diagnosis Age At Onset Arthritis Unknown Father Diagnosis Age At Onset Suicide Unknown Social History Social History Element Codes Description Effec tive Dates Alcohol history SNOMED CT: 064950 Currently drin ks alcohol Occ use only 04/23/2021 Marital status Unknown x2 04/22/2021 Living arrangements Unknown Memory Care 04/22/[address]: 7847822 Former smoker 04/22 Children Unknown Has Children [...] Fill Instructions citalopram 20 mg tablet RxNorm: 281589 Take 1 Tablet(s) Oral QD 1 08/01/20 22 Active citalopram 20 mg tablet RxNorm: 368006 Take 1 Tablet(s) Oral QD 1 08/07/20 21 Inactive Inbrija 42 mg capsules for inhalation RxNorm: 1166961 Take 1 Capsule(s) Inhalation as needed 1 No Stop Date Active Aspirin Low Dose 81 mg tablet,delayed release RxNorm: 906599 Take 1 Tablet(s) Oral QD 1 No Stop Date Active carbidopa ER 50 mg-levodopa 200 mg tablet,extended release RxNorm: 242149 Take 1 Tablet(s) Oral QHS every night at bedtime 1 No Stop Date Active carbidopa 25 mg-levodopa 100 mg tablet RxNorm: 847869 Take 2 Tablet(s) Oral Q4H every four hours 1 No Stop Date Active Medication Administered No Medication Administered data Immunizations Vaccine Codes Dose Date Status Covid-19 CVX: 208 12/18/2020 Covid-19 CVX: 208 11/27/2020 Tdap CVX: 115 01/07/2016 Tetanus, Diptheria, Pertussis CVX: 115 2015 Results Observation Observation Code Item Item Code Result Date S ervice Location Urine Culture [id number] URINE CULTURE 79486-7 SEE RESULTS BELOW 2 Unknown Reason For Visit No Reason For Visit data
--- OUTSIDE RECORDS SUMMARY | 2025-04-21 22:20 | XMS_ITS | Clinical Summary ---
Author Organization [facility] Address [address] [place] [address] Care Team Providers Care Air Dispatcher Name Role Phone May Briseno MD Unavailable Jose Martin Chadwick MD Primary Care Provider Jaylyn Zambrano NP Unavailable Allergies Active Allergy Reactions Criticality Noted Date Comments Penicillins Hives,Itching High 06/17/2007 Medications carbidopa-levo dopa controlled release, 50-200 mg, (SINEMET CR 50-200) 50-200 mg tabletIndicati ons:Parkinson' s disease (HC) TAKE 1 TABLET BY MOUTH AT BEDTIME. 30 tablet 03/12/20 17 Active carbidopa-levo dopa, 25-100 mg, (SINEMET 25-100) 25-100 mg tablet Take 2 tablets by mouth 6x daily 90 tablet 3 04/02/20 20 Active QUEtiapine (Seroquel) 25 mg tablet Seroquel 25 mg tablet Take 0.5 tablets 3 times a day by oral route as needed. Active divalproex sprinkles (DEPAKOTE SPRINKLES) 125 mg capsule 02/14/20 23 Active aspirin (ECOTRIN) 81 mg enteric coated tablet aspirin 81 mg tablet,delayed release TAKE 1 TABLET BY MOUTH EVERY DAY Active citalopram (CELEXA) 20 mg tablet citalopram 20 mg tablet TAKE 1 TABLET BY MOUTH EVERY DAY Active cholecalcifero l, Vitamin D3, 2,000 unit tablet cholecalciferol (vitamin D3) 50 mcg (2,000 unit) tablet TAKE 1 TABLET BY MOUTH EVERY DAY. DX VITAMIN D DEFICIENCY. 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/29/2018 Overview (07/29/2018): 4.0cm on echocardiogram 09/2017 Need for SBE (subacute bacterial endocarditis) p rophylaxis 07/29/2018 S/P cardiac pacemaker proced ure (insertion of a dual chamber PPM) 01/06/2011 S/P MVR (mitral valve repair ) 12/30/10 (Complex Mitral Valve Repair with large triangular resection of most of P2 and primary leaflet repair and rigid ring reduction annuloplasty utilizing a 32 mm SJM 12/30/2010 Parkinson disease Resolved Problems Problem Noted Date Diagnosed Date Resolved Date Encounter for long-term (cur rent) use of anticoagulants 01/13/2011 03/05/2015 Fluid overload 01/05/2011 03/05/2015 Bradycardia 12/31/2010 03/05/2015 Hypotension 12/31/2010 03/05/2015 MVR (mitral valve repair) [V45.89JN] 12/30/2010 01/08/2012 Overview (12/31/2010): 1) Complex Mitral Valve Repair with large triangular resection of most of P2 and primary leaflet repair and rigid ring reduction annuloplasty utilizing a 32 mm SJM Saddle ring. 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 from Last 3 Months Immunizations Immunization Administration Dates Next Due Td (Age >=7 Years) 09/25/2005 Tdap 01/07/2016 Family History Medical History Relation Name Comments No Known Problems Brother 1 No Known Problems Brother 2 Depression Father Suicidality Father committed suici de No Known Problems Mother No Known Problems Sister 1 No Known Problems Sister 2 Heart Disease No Family History Relation Name Status Comments Brother 1 Alive Brother 2 Alive Father suicide Mother Alive Sister 1 Alive Sister 2 Alive Social History Tobacco Use Types Packs/Day Years Used Date Smoking Tobacco: Former Cigarettes 0.3 3 0 01/14/1997 - 01/15/2000 Smokeless Tobacco: Never Tobacco Cessation:Counseling Given: Not Answered Comments:QUIT MANY YEARS AGO Alcohol Use Standard Drinks/Week Comments Not Currently 0 (1 standard drink = 0.6 oz pure alcohol) drinks on occasion - couple every week PHQ-2 Answer Date Recorded PHQ-2 TOTAL SCORE 0 04/02/2020 Social Connections Answer Date Recorded Frequency of Communication with Friends and Fami ly Not on file 02/25/2023 Financial Resource Strain Answer Date R ecorded Difficulty of Paying Living Expenses Not on file 10/26/2021 Difficulty of Paying Living Expenses Not on file 10/26/2021 Sex and Gender Information Value Date Recorded Sex Assigned at Not on file Legal Sex Male 5:39 AM [employer] Gender Identity Not on file Sexual Orientation Not on file Obstetrics History Last Filed Vital Signs Vital Sign Reading Time Taken Comments Blood Pressure 111/64 03/06/2023 2:30 PM CDT Pulse 64 03/06/2023 2:30 PM CDT Temperature 36.4 C (97.6 F) 03/06/2023 10:47 AM CDT Respiratory Rate 16 03/06/2023 2:15 PM CDT Oxygen Saturation 96% 03/06/2023 2:30 PM CDT Inhaled Oxygen Concentration - - Weight 81.6 kg (180 lb) 03/06/2023 10:47 AM CDT Height 172.7 cm (5' 8) 03/06/2023 10:47 AM CDT Body Mass Index 27.37 03/06/2023 10:47 AM CDT Plan of Treatment Upcoming Encounters Date Type Department Care Team (Late st Contact Info) Description 07/03/2025 Procedure Only [facility] [address] [place] [address] Health Maintenance Due Date Last Done Comments Hepatitis C screening for age 18-79 1975 Pneumococcal series for age 50+ (1 of 2 - PCV) 1976 Colonoscopy through age 75 2002 Zoster (shingles) series for age 50+ (1 of 2) 2007 Lipids for age 45-75 01/06/2021 01/07/2016, 10/30/2010, 11/06/2004 Depression screening for age 12+ 04/04/2021 04/04/2020, 04/02/2020, 05/09/2016 Medicare Wellness for age 65+ 2022 BMI (ht and wt on same day) for age 18+ 02/26/2024 02/25/2023, 04/06/2020, 10/14/2018, Additional history exists COVID-19 vaccine series (2023- season) 2025 08/16/2024, 04/09/2022 Influenza Vaccine (Season Ended) 2025 Tetanus booster 01/06/2026 01/07/2016, 09/25/2005 RSV vaccine for adults or (1 - 1-dose 75+ series) 2032 Tdap Completed 01/07/2016 Hepatitis B series for 19+ Aged Out N o longer eligible based on patient's age to complete this topic Medical Devices Implanted Type Area Drop Wire Hanger Device Identifier Shelf Expiration Date Model / Serial / Lot Standard Pacemaker-3/01/2011 Implanted: (Quantity not on file) Standard Pacemaker Medtronic [id number]/ [id number] / / Revo Mri [id number] Chest Medtronic / [id number] S / Ring 32mm Rigid Saddle - [id number] Implanted:Qty : 1 on 12/30/2010 at [facility] N/A: Mitral Valve [facility] 11/04/2015 RSAR-[id number]# / [id number] / Procedures Procedure Name Priority Date/Time Associated Diagnosis Comments LIPID PANEL W REFLEX MEASURED LDL Routine 01/07/2016 2:54 PM CDT Shoulder tendinitis, right from Last 3 Months or Most Recently Relevant to Health Maintenance Results * (ABNORMAL) LIPID PANEL W REFLEX MEASURED LDL (01/07/2016 2:54 PM CDT) CHOLESTEROL,TOTAL 188 100 - 199 mg/dL 01/07/2016 5:13 PM CDT [facility] TRIGLYCERIDES 171(H) <150 mg/dL 01/07/2016 5:13 PM T [facility] HDL CHOLESTEROL 43 >40 mg/dL 01/07/2016 5:13 PM T [facility] NON-HDL CHOLESTEROL 145(H) <145 mg/dl 01/07/2016 5:13 PM [facility] CHOL/HDL RATIO 4.37 <4.50 01/07/2016 5:13 PM T [facility] LDL CHOLESTEROL 111 <=130 mg/dL 01/07/2016 5:13 PM T [facility] PATIENT STATUS FASTING 01/07/2016 5:13 PM [facility] Blood specimen (specimen) BLOOD SPECIMEN / Unknown Butterfly / Unknown 01/07/2016 2:54 PM CDT 01/07/2016 2:54 PM CDT Eliseo Lackey MD CHEMISTRY Final Result Performing Organization Address City/State/[facility] Co de Phone Number [facility] [address] [place] [phone] from Last 3 Months or Most Recently Relevant to Health Maintenance Insurance MEDICAID MEDICARE PART B HB ONLY MEDICARE PB ONLY MEDICARE PART A HB ONLY Advance Directives * Full Code (Latest Code Status on File) Date Activated Date Inactivated Comments 03/06/2023 12:46 PM 03/06/2023 4:45 PM Question Answer Comments Code Status Discussion: Reviewed Preferences * Full Code Date Activated Date Inactivated Comments 12/30/2010 5:53 PM 01/07/2011 3:03 PM * Full Code Date Activated Date Inactivated Comments 12/30/2010 10:06 AM 12/30/2010 5:53 PM * Full Code Date Activated Date Inactivated Comments 12/27/2010 11:40 AM 12/27/2010 3:39 PM * Full Code Date Activated Date Inactivated Comments 12/13/2010 6:12 AM 12/13/2010 4:30 PM Care Teams Air Dispatcher Relationship Specialty Start Date End Date Jose Martin Chadwick MD [address] [place] [address] PCP - General 10/14/18 Mya Briseno MD [address] [place] [address] Consulting Physician Cardiovascular Disease 02/28/15 Jaylyn Zambrano NP [address] [facility] [address] [place] [address] Nurse Practitioner Cardiology - Electrophysiology 02/24/23
[2025-04-21 22:26] VITALS: BP 114/75; PULSE 82; RESP 20; TEMP 36.6; O2SAT 96
--- NOTE | 2025-04-21 22:50 | ED.EYEPROB ---
HPI - Eye Problem General Date Seen: 04/21/25 Chief complaint: Eye Problems Stated complaint: Left eye pain Time Seen by Provider: 04/21/25 22:17 Source: patient and family Mode of arrival: ambulatory Limitations: no limitations History of Present Illness HPI Narrative: Patient is a 69-year-old male comes from assisted living memory care presenting to the emergency department with his son for eye pain and left forearm pain. I spoke to the assisted living they state starting yesterday he started having some eye pain that noticed today he had some swelling underneath his eye. He has not had anything for the eye pain yet. He was also having pain to his left forearm and staff were concerned about shingles due to the blisters. There is also a mild rash to the forearm. His son was called to pick him up tonight to bring him to the emergency department so he did. He does state that the area underneath his eyelid seemed rather fall and then the patient pushed on it and some purulent material came out the bottom of the eye. Since then that spot has been more boggy. No other concerns noted at this time. Patient denies any pain currently. Denies any pain with movement of the eyes. Denies any vision changes. Related Data Home Medications ?Medication ?Instructions ?Recorded ?Confirmed aspirin 81 mg tablet,delayed 81 mg PO DAILY 02/11/23 04/21/25 release (Adult Low Dose Aspirin) carbidopa 25 mg-levodopa 100 mg 1 tab PO 02/11/23 tablet carbidopa ER 50 mg-levodopa 200 mg 1 tab PO QPM 02/11/23 04/21/25 tablet,extended release cholecalciferol (vitamin D3) 50 50 mcg PO DAILY 02/11/23 04/21/25 mcg (2,000 unit) chewable tablet citalopram 20 mg tablet 20 mg PO DAILY 02/11/23 04/21/25 divalproex 125 mg capsule,delayed mg PO BID 02/11/23 release sprinkle quetiapine 25 mg tablet 25 mg PO QPM 02/11/23 04/21/25 acetaminophen 500 mg tablet mg PO 04/21/25 calcium 600 mg (as 1 tab PO BID 04/21/25 04/21/25 carbonate)-vitamin D3 10 mcg (400 unit) tablet fexofenadine 180 mg tablet 180 mg PO DAILY 04/21/25 04/21/25 polyethylene glycol 3350 17 17 g PO DAILY 04/21/25 04/21/25 gram/dose oral powder sennosides 8.6 mg-docusate sodium PO 04/21/25 50 mg tablet (Stimulant Laxative Plus) Previous Rx's ?Medication ?Instructions ?Recorded acyclovir 800 mg tablet 800 mg PO 5XD 7 days #35 tabs 04/21/25 cefdinir 300 mg capsule 300 mg PO BID #10 caps 04/21/25 clindamycin HCl 300 mg capsule 300 mg PO TID #15 caps 04/21/25 Allergies Allergy/AdvReac Type Severity Reaction Status Date / Time Penicillins Allergy Verified 04/21/25 22:22 Review of Systems Status of ROS: Reports: 10 or more systems reviewed and unremarkable except as noted in History and below [facility] Medical History POLST (Physician Orders for Life-Sustaining Treatment) ?Z78.9 - Other specified health status (ICD-10) Social History Smoking Status: Former smoker What tobacco products do you use: cigarettes Smoking quit date/years: <= 15 years ago Second hand tobacco smoke exposure: No How often do you have a drink containing alcohol: never How often do you have six or more drinks on one occasion: Never AUDIT-C Alcohol total score: 0 Non-prescribed substance use: denies use Exam Narrative: Exam Narrative: Const: Well-nourished, Well-developed, in no distress Eyes: PERRL, erythematous left conjunctival. Normal right conjunctiva. Some erythema is noted around the eye with an area of bogginess underneath the left eye. No obvious drainage at this time. Fluorescein eye exam shows no concerning findings. Bedside ultrasound shows no signs abscess HENT: Atraumatic external nose and ears. Moist mucous membranes. MSK:Extremities w/o deformity, Normal Active ROM Skin: Rash to left forearm with some small vesicles. Is mildly tender to the touch. Neuro: Normal Muscle tone, No focal neurological deficits. Psych: Awake, Alert, & Oriented x3. Appropriate mood and affect. Const: Vital Signs, click to edit/add: Vital Signs - 24 hr 04/21/25 22:26 Temperature 97.8 F Pulse Rate [Pulse Oximeter] 82 Respiratory Rate 20 Blood Pressure [Ri ght Upper Arm] 114/75 Pulse Oximetry 96 Oxygen Delivery Me thod Room Air Course Vital Signs Vital signs: Initial Vital Signs Temperature 97.8 F 04/21/25 22:26 Temperature Source Temporal Artery Scan 04/21/25 22:26 Pulse Rate 82 04/21/25 22:26 Respiratory Rate 20 04/21/25 22:26 Blood Pressure 114/75 04/21/25 22:26 Blood Pressure Mean 88 04/21/25 22:26 Pulse Oximetry 96 04/21/25 22:26 Oxygen Delivery Method Room Air 04/21/25 22:26 Vital Signs Temperature 97.8 F 04/21/25 22:26 Pulse Rate 82 04/21/25 22:26 Respiratory Rate 20 04/21/25 22:26 Blood Pressure 114/75 04/21/25 22:26 Pulse Oximetry 96 04/21/25 22:26 Oxygen Delivery Method Room Air 04/21/25 22:26 Temperature 97.8 F 04/21/25 22:26 Pulse Rate 82 04/21/25 22:26 Respiratory Rate 20 04/21/25 22:26 Blood Pressure 114/75 04/21/25 22:26 Pulse Oximetry 96 04/21/25 22:26 Oxygen Delivery Method Room Air 04/21/25 22:26 Medications Administered Medications: Discontinued Medications Generic Name Dose Route Start Last Admin Trade Name Freq PRN Reason Stop Dose Admin Acyclovir 800 mg 04/21/25 23:19 04/21/25 23:47 Acyclovir 200 Mg Capsule PO 04/21/25 23:20 800 mg ONCE ONE Administration Cefpodoxime Proxetil 200 mg 04/21/25 23:18 04/21/25 23:47 Cefpodoxime Proxetil 200 Mg Tablet PO 04/21/25 23:19 200 mg ONCE ONE Administration Clindamycin HCl 300 mg 04/21/25 23:16 04/21/25 23:47 Clindamycin 150 Mg Capsule PO 04/21/25 23:17 300 mg ONCE ONE Administration Fluorescein Sodium 1 strip 04/21/25 23:15 04/21/25 23:45 Fluorescein Sodium Topical Strip EYE-LEFT 04/21/25 23:16 1 strip ONCE ONE Administration Tetracaine HCl 1 drop 04/21/25 23:15 04/21/25 23:46 Tetracaine 0.5% Ophth EYE-LEFT 04/21/25 23:16 1 drop ONCE ONE Administration MDM - Eye Problem MDM Narrative Medical decision making narrative: Patient 69-year-old male presenting to the emergency department for periorbital cellulitis, conjunctivitis and possibly shingles. He is not having any symptoms that make me concerned of orbital cellulitis at this time. Do not believe CT scan is necessary. Pain is rather minimal. Son does state he had some purulent discharge coming from the eye and I did ultrasound the body area underneath his eye that he states came from and that is now empty. No signs of abscess formation. No signs of HSV in the eye. His left forearm his possibly showing goes. It is mildly tender to the touch. Negative Nikolsky sign. I am not concerned about pemphigus vulgaris at this time. No signs of developing Waters-Lyle syndrome. At this time I will treat him for multiple things. Will start with acyclovir for possible shingles. For the conjunctivitis will give erythromycin ointment. For the periorbital cellulitis will do clindamycin and cefdinir. Acyclovir ordered for possible shingles. Discharge Plan Discharge Clinical Impression: Bacterial conjunctivitis, Periorbital cellulitis of left eye, Shingles Patient Disposition: Home w/ Parent or Adult Condition: Stable Instructions: Shingles (ED), Periorbital Cellulitis (ED), Conjunctivitis (ED) Additional Instructions: Take all the medication as prescribed. Return to emergency department for new or worsening symptoms Prescriptions: New clindamycin HCl 300 mg capsule 300 mg PO TID Qty: 15 0RF acyclovir 800 mg tablet 800 mg PO 5XD 7 Days Qty: 35 0RF Rx Instructions: space evenly during waking hours cefdinir 300 mg capsule 300 mg PO BID Qty: 10 0RF No Action quetiapine 25 mg tablet 25 mg PO QPM carbidopa-levodopa 50-200 mg tablet extended release 1 tab PO QPM citalopram 20 mg tablet 20 mg PO DAILY carbidopa-levodopa 25-100 mg tablet 1 tab PO divalproex 125 mg capsule, delayed rel sprinkle PO BID aspirin [Adult Low Dose Aspirin] 81 mg tablet,delayed release (DR/EC) 81 mg PO DAILY cholecalciferol (vitamin D3) 50 mcg (2,000 unit) tablet,chewable 50 mcg PO DAILY sennosides-docusate sodium [Stimulant Laxative Plus] 8.6-50 mg tablet PO fexofenadine 180 mg tablet 180 mg PO DAILY acetaminophen 500 mg tablet PO polyethylene glycol 3350 17 gram/dose powder 17 g PO DAILY calcium carbonate-vitamin D3 600 mg-10 mcg (400 unit) tablet 1 tab PO BID Follow Up/Referrals: Provider,Not a Local [Primary Care Provider, Family Practice] Stand Alone Forms: [facility] Info Instructions
--- OUTSIDE RECORDS SUMMARY | 2025-04-21 23:17 | XMS_ITS | CCD ---
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 Name Role Phone Jin Flowers MD Primary Care Provider Unavailabl e Unavailable Chronic Care Management Unavaila ble Summary Purpose DataExchange Insurance Providers Payer name Policy type / Coverage type Covered constitution party ID Effective Begin Date Effective End Date [place] Medicare Part B [id number] Unknown Unkn own Family history Mother Diagnosis Age At Onset Arthritis Unknown Father Diagnosis Age At Onset Suicide Unknown Social History Social History Element Codes Description Effec tive Dates Alcohol history SNOMED CT: 690008 Currently drin ks alcohol Occ use only 04/23/2021 Marital status Unknown x2 04/22/2021 Living arrangements Unknown Memory Care 04/22/[address]: 2607755 Former smoker 04/22 Children Unknown Has Children [...] Fill Instructions citalopram 20 mg tablet RxNorm: 597612 Take 1 Tablet(s) Oral QD 1 08/01/20 22 Inactive citalopram 20 mg tablet RxNorm: 844964 Take 1 Tablet(s) Oral QD 1 08/07/20 21 Inactive Inbrija 42 mg capsules for inhalation RxNorm: 2629488 Take 1 Capsule(s) Inhalation as needed 1 No Stop Date Active Aspirin Low Dose 81 mg tablet,delayed release RxNorm: 440622 Take 1 Tablet(s) Oral QD 1 No Stop Date Active carbidopa ER 50 mg-levodopa 200 mg tablet,extended release RxNorm: 582464 Take 1 Tablet(s) Oral QHS every night at bedtime 1 No Stop Date Active carbidopa 25 mg-levodopa 100 mg tablet RxNorm: 201542 Take 2 Tablet(s) Oral Q4H every four hours 1 No Stop Date Active Medication Administered No Medication Administered data Immunizations Vaccine Codes Dose Date Status Covid-19 CVX: 208 12/18/2020 Covid-19 CVX: 208 11/27/2020 Tdap CVX: 115 01/07/2016 Tetanus, Diptheria, Pertussis CVX: 115 2015 Results Observation Observation Code Item Item Code Result Date Service Location Urine Culture [id number] URINE CULTURE 91914-3 SEE RESU LTS BELOW 022 Unknown Vitamin D Deficiency QPF745 VITAMIN D DEFICIENCY SCREENING 12 ug/L 022 Unknown TSH 25704-8 TSH LHE 28768-2 1.35 uIU/mL 022 Unknown CBC with Platelets Differential LXP868 WBC COUNT (AUTOMATED) 7.3 10e3/uL 022 Unknown CBC with Platelets Differential RPE150 RBC COUNT 789-8 4.54 10e6/uL 022 Unknown CBC with Platelets Differential WXV495 Hemoglobin 718-7 14.2 g/dL 022 Unknown CBC with Platelets Differential EBB282 Hematocrit 4544-3 43.7 % 022 Unknown CBC with Platelets Differential CWA642 MCV 787-2 96 fL 022 Unknown CBC with Platelets Differential RGA966 MCH 31.3 pg 022 Unknown CBC with Platelets Differential VIS273 MCHC 32.5 g/dL 022 Unknown CBC with Platelets Differential HJT164 RDW 13.6 % 022 Unknown CBC with Platelets Differential QLC867 Platelet Count 777-3 193 10e3/uL 022 Unknown CBC with Platelets Differential QAC053 % NEUTROPHILS AUTO 60 % 022 Unknown CBC with Platelets Differential TYD958 % LYMPHOCYTES AUTO 26 % 022 Unknown CBC with Platelets Differential JDL579 % MONOCYTES AUTO 8 % 022 Unknown CBC with Platelets Differential SNH392 % EOSINOPHILS AUTO 5 % 022 Unknown CBC with Platelets Differential GLZ731 % BASOPHILS AUTO 1 % 022 Unknown CBC with Platelets Differential VAL004 % IMMATURE GRANULOCYTES AUTO 0 % 022 Unknown CBC with Platelets Differential ABP231 NRBCS PER 100 WBC AUTO 0 /100 022 Unknown CBC with Platelets Differential QNF490 ABSOLUTE NEUTROPHILS AUTO 4.4 10e3/uL 022 Unknown CBC with Platelets Differential SSX516 ABSOLUTE LYMPHOCYTES AUTO 1.9 10e3/uL 022 Unknown CBC with Platelets Differential IIV282 ABSOLUTE MONOCYTES AUTO 0.6 10e3/uL 022 Unknown CBC with Platelets Differential TQO409 ABSOLUTE EOSINOPHILS AUTO 0.4 10e3/uL 022 Unknown CBC with Platelets Differential QRP483 ABSOLUTE BASOPHILS AUTO 0.0 10e3/uL 022 Unknown CBC with Platelets Differential OYY675 ABSOLUTE IMMATURE GRANULOCYTES AUTO 0.0 10e3/uL 022 Unknown CBC with Platelets Differential OST962 NRBCS ABSOLUTE 0.0 10e3/uL 022 Unknown Basic Metabolic Panel LAB15 Sodium 2951-2 139 mmol/L 022 Unknown Basic Metabolic Panel LAB15 Potassium 2823-3 4.2 mmol/L 022 Unknown Basic Metabolic Panel LAB15 Chloride 2075-0 104 mmol/L 022 Unknown Basic Metabolic Panel LAB15 CO2 25 mmol/L 022 Unknown Basic Metabolic Panel LAB15 ANION GAP 90791-8 10 mmol/L 022 Unknown Basic Metabolic Panel LAB15 Urea Nitrogen 20 mg/dL 022 Unknown Basic Metabolic Panel LAB15 Creatinine 2160-0 0.83 mg/dL 022 Unknown Basic Metabolic Panel LAB15 Calcium 89108-5 9.2 mg/dL 022 Unknown Basic Metabolic Panel LAB15 Glucose 86 mg/dL 022 Unknown Basic Metabolic Panel LAB15 GFR, ESTIMATE 95247-2 >90 mL/min/1.73m 2 022 Unknown COVID-19 Virus PCR AVH1929 COVID-19 VIRUS PCR - RESULT Not Detected 021 Unknown PHQ9 PHQ9 29720-0 3 021 Unknown [facility] 25371-7 06/24 (Agitated) 021 Unknown COVID-19 Virus PCR YJK6293 COVID-19 VIRUS PCR - RESULT Not Detected 021 Unknown COVID-19 Virus PCR BKI1450 COVID-19 VIRUS PCR - RESULT Not Detected 021 Unknown COVID-19 Virus PCR IBK8674 SARS-COV2 PCR Negative 021 Unknown PHQ9 PHQ9 72959-6 3 021 Unknown [facility] 52690-6 08/24 021 Unknown Procedures Procedure Codes Date SYS BP LESS 140 CPT-4: G8752 01/07/2022 LLANOS BP LESS 90 CPT-4: G8754 01/07/2022 SYS BP LESS 140 CPT-4: G8752 12/03/2021 LLANOS BP LESS 90 CPT-4: G8754 12/03/2021 SYS BP LESS 140 CPT-4: G8752 11/05/2021 LLANOS BP LESS 90 CPT-4: G8754 11/05/2021 SYS BP LESS 140 CPT-4: G8752 10/01/2021 LLANOS BP LESS 90 CPT-4: G8754 10/01/2021 Medicare Annual Wellness Vis it (AWV), Subsequent SNOMED CT: [id number] CPT-4: G0439 08/07/2021 SYS BP LESS 140 CPT-4: G8752 08/07/2021 LLANOS BP LESS 90 CPT-4: G8754 08/07/2021 ADVNC CARE PLAN IN RCRD CPT-4: 1157F 08/07/20 FXNL STATUS ASSESSED CPT-4: 1170F 08/07/2021 AMNT PAIN NOTED NONE PRSNT CPT-4: 1126F 08/07 FALL RISK ASSESSMENT DOCD CPT-4: 3288F 2020 PT INELIG NEG SCRN DEPRES SNOMED CT: 428 [id number] CPT-4: G8510 08/07/2021 SYS BP LESS 140 CPT-4: G8752 07/08/2021 LLANOS BP LESS 90 CPT-4: G8754 07/08/2021 SYS BP LESS 140 CPT-4: G8752 06/05/2021 LLANOS BP LESS 90 CPT-4: G8754 06/05/2021 SYS BP LESS 140 CPT-4: G8752 04/23/2021 LLANOS BP LESS 90 CPT-4: G8754 04/23/2021 PT INELIG NEG SCRN DEPRES SNOMED CT: 428 [id number] CPT-4: G8510 04/23/2021 FALL RISK ASSESSMENT DOCD CPT-4: 3288F 2020 Vital Signs Date Vital 01/07/2022 Blood Pressure 1: 131/77 Code: 8480-6 BMI: 26.3 Code: 58564-3 Heart Rate 1: 76 bpm Code: 8867-4 Height: 5'9 Code: 8302-2 Respiratory Rate: 18 bpm SpO2: 94% Temperature: 36.6 (C) / 97.8 (F) Weight: 178 lbs Code: [address]/06/2021 Blood Pressure 1: 137/61 Code: 8480-6 BMI: 27.3 Code: 40068-5 Heart Rate 1: 77 bpm Code: 8867-4 Height: 5'9 Code: 8302-2 Respiratory Rate: 20 bpm Temperature: 36.4 (C) / 97.5 (F) Weight: 185 lbs Code: 3141-0612/03/2021 Blood Pressure 1: 137/61 Code: 8480-6 BMI: 27.3 Code: 18256-9 Heart Rate 1: 77 bpm Code: 8867-4 Height: 5'9 Code: 8302-2 Respiratory Rate: 20 bpm Temperature: 36.7 (C) / 98.0 (F) Weight: 185 lbs Code: [address]/05/2021 Blood Pressure 1: 107/68 Code: 8480-6 BMI: 27.2 Code: 07300-4 Heart Rate 1: 76 bpm Code: 8867-4 Height: 5'9 Code: 8302-2 Respiratory Rate: 17 bpm Temperature: 37.1 (C) / 98.8 (F) Weight: 184 lbs 6 oz Code: 3141-0610/01/2021 Blood Pressure 1: 107/68 Code: 8480-6 Heart Rate 1: 76 bpm Code: 8867-4 Respiratory Rate: 17 bpm Temperature: 36.4 (C) / 97.6 (F) Weight: 184 lbs 4 oz Code: 3141-0608/27/2021 Blood Pressure 1: 107/70 Code: 8480-6 BMI: 27.8 Code: 91875-4 Heart Rate 1: 71 bpm Code: 8867-4 Height: 5'9 Code: 8302-2 Respiratory Rate: 16 bpm SpO2: 95% Temperature: 36.0 (C) / 96.8 (F) Weight: 188 lbs Code: [address]/07/2021 Blood Pressure 1: 107/70 Code: 8480-6 BMI: 27.8 Code: 35038-3 Heart Rate 1: 71 bpm Code: 8867-4 Height: 5'9 Code: 8302-2 Respiratory Rate: 16 bpm Temperature: 36.5 (C) / 97.7 (F) Weight: 188 lbs Code: 3141-9 07/08/2021 Blood Pressure 1: 110/80 Code: 8480-6 BMI: 29.0 Code: 40897-6 Heart Rate 1: 90 bpm Code: 8867-4 Height: 5'9 Code: 8302-2 Respiratory Rate: 17 bpm Temperature: 36.4 (C) / 97.6 (F) Weight: 196 lbs 4 oz Code: 3141-9 06/05/2021 Blood Pressure 1: 127/65 Code: 8480-6 BMI: 30.1 Code: 64236-6 Heart Rate 1: 85 bpm Code: 8867-4 Height: 5'9 Code: 8302-2 Respiratory Rate: 19 bpm Temperature: 36.3 (C) / 97.4 (F) Weight: 204 lbs 2 oz Code: 3141-9 04/23/2021 Blood Pressure 1: 121/79 Code: 8480-6 BMI: 30.3 Code: 40626-2 Heart Rate 1: 67 bpm Code: 8867-4 Height: 5'9 Code: 8302-2 Respiratory Rate: 17 bpm Temperature: 36.3 (C) / 97.4 (F) Weight: 205 lbs Code: 3141-9 Reason For Visit No Reason For Visit data Encounters Encounter Performer Location Location Address Codes Date (81987) DOMICIL VISIT EST PAT Diagnosis: Dementia in other diseases classified elsewhere without behavioral disturbance[ICD10: F02.80] Diagnosis: Dementia with behavioral disturbance[ICD10: F03.91] Diagnosis: Dementia with Lewy bodies[ICD10: G31.83] Diagnosis: Vitamin D deficiency[ICD10: E55.9] Diagnosis: Parkinson disease[ICD10: G20] Diagnosis: Weakness[ICD10: R53.1] Jin Flowers [facility] [address] [address] CPT-4: 92813 2 (54522) PSYCH DIAG EVAL W/MED SRVCS Diagnosis: Dementia with behavioral disturbance[ICD10: F03.91] Diagnosis: Dementia with Lewy bodies[ICD10: G31.83] Diagnosis: Major depress, 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] Diagnosis: Parkinsons disease[ICD10: G20] Diagnosis: Weight loss[ICD10: R63.4] Diagnosis: Unsteadiness on feet[ICD10: R26.81] Jaylyn Bryant [facility] [address] [address] CPT-4: 58639 2 (24540) DOMICIL VISIT EST PAT Diagnosis: Parkinsons disease[ICD10: G20] Diagnosis: Dementia with Lewy bodies[ICD10: G31.83] Diagnosis: Dementia in other diseases classified elsewhere without behavioral disturbance[ICD10: F02.80] Diagnosis: Vitamin D deficiency[ICD10: E55.9] Diagnosis: Major depress, 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] Mellisa Fountain [facility] [address] [address] CPT-4: 35317 2 (36179) DOMICIL VISIT EST PAT Diagnosis: COVID-19[ICD10: U07.1] Diagnosis: Weight loss[ICD10: R63.4] Diagnosis: Dementia with Lewy bodies[ICD10: G31.83] Diagnosis: Dementia in other diseases classified elsewhere without behavioral disturbance[ICD10: F02.80] Diagnosis: Parkinsons disease[ICD10: G20] May Hannon [facility] [address] [address] CPT-4: 22668 2 (56330) DOMICIL VISIT EST PAT w/95 modifier Diagnosis: Dementia with Lewy bodies[ICD10: G31.83] Diagnosis: Dementia in other diseases classified elsewhere without behavioral disturbance[ICD10: F02.80] Diagnosis: Parkinsons disease[ICD10: G20] Diagnosis: Weakness[ICD10: R53.1] Diagnosis: Weight loss[ICD10: R63.4] Jin Flowers [facility] [address] [address] CPT-4: 23960 1 (13524) DOMICIL VISIT EST PAT Diagnosis: Parkinsons disease[ICD10: G20] Diagnosis: Dementia with Lewy bodies[ICD10: G31.83] Diagnosis: Dementia in other diseases classified elsewhere without behavioral disturbance[ICD10: F02.80] Diagnosis: Weakness due to acute cerebrovascular accident (CVA)[ICD10: I63.9] Diagnosis: Acute lacunar stroke[ICD10: I63.81] Mellisa Fountain [address] [address] CPT-4: 22231 1 (28294) DOMICIL VISIT EST PAT Diagnosis: Parkinsons disease[ICD10: G20] Diagnosis: Dementia in other diseases classified elsewhere without behavioral disturbance[ICD10: F02.80] Diagnosis: Dementia with Lewy bodies[ICD10: G31.83] Diagnosis: Weight loss[ICD10: R63.4] Diagnosis: Unsteadiness on feet[ICD10: R26.81] May Hannon [address] [address] CPT-4: 13714 1 (40137) DOMICIL VISIT EST PAT Diagnosis: History of permanent cardiac pacemaker placement[ICD10: Z95.0] Diagnosis: Dementia in other diseases classified elsewhere without behavioral disturbance[ICD10: F02.80] Diagnosis: Dementia with Lewy bodies[ICD10: G31.83] Diagnosis: Weakness due to acute cerebrovascular accident (CVA)[ICD10: I63.9] Diagnosis: Acute lacunar stroke[ICD10: I63.81] Jin Flowers [address] [address] CPT-4: 52913 1 (16662) DOMICIL VISIT EST PAT Diagnosis: Acute lacunar stroke[ICD10: I63.81] Diagnosis: Weakness due to acute cerebrovascular accident (CVA)[ICD10: I63.9] Diagnosis: Dementia in other diseases classified elsewhere without behavioral disturbance[ICD10: F02.80] Diagnosis: Dementia with Lewy bodies[ICD10: G31.83] Diagnosis: Weakness[ICD10: R53.1] Jin Flowers [facility] [address] [address] CPT-4: 67456 1 (55246) DOMICIL VISIT NEW PAT Diagnosis: Parkinsons disease[ICD10: G20] Diagnosis: Acute lacunar stroke[ICD10: I63.81] Diagnosis: Weakness[ICD10: R53.1] Diagnosis: Weakness due to acute cerebrovascular accident (CVA)[ICD10: I63.9] Diagnosis: Unsteadiness on feet[ICD10: R26.81] Diagnosis: Dementia in other diseases classified elsewhere without behavioral disturbance[ICD10: F02.80] Diagnosis: Dementia with Lewy bodies[ICD10: G31.83] Diagnosis: History of permanent cardiac pacemaker placement[ICD10: Z95.0] Mellisa Fountain [facility] [address] [address] CPT-4: 82297 Plan of Care Planned Activity Notes Codes Status Date Patient Education: Patient Medication Summary Completed 01/07/2022 Patient Education: Influenza Vaccine Completed 01/07/2022 Patient Education: Patient Medication Summary Completed 12/06/2021 Patient Education: Influenza Vaccine Completed 12/06/2021 Patient Education: Alzheimer''s Disease Completed 12/06/2021 Patient Education: Dementia Complete d 12/06/2021 Patient Education: Patient Medication Summary Completed 12/03/2021 Patient Education: Influenza Vaccine Completed 12/03/2021 Patient Education: Alzheimer''s Disease Completed 12/03/2021 Patient Education: Dementia Complete d 12/03/2021 Patient Education: Patient Medication Summary Completed 11/05/2021 Patient Education: Influenza Vaccine Completed 11/05/2021 Patient Education: Alzheimer''s Disease Completed 11/05/2021 Patient Education: Dementia Complete d 11/05/2021 Patient Education: Patient Medication Summary Completed 10/01/2021 Patient Education: Influenza Vaccine Completed 10/01/2021 Patient Education: Patient Medication Summary Completed 08/27/2021 Patient Education: Influenza Vaccine Completed 08/27/2021 Patient Education: Alzheimer''s Disease Completed 08/27/2021 Patient Education: Dementia Complete d 08/27/2021 Patient Education: Patient Medication Summary Completed 08/07/2021 Patient Education: Influenza Vaccine Completed 08/07/2021 Patient Education: Alzheimer''s Disease Completed 08/07/2021 Patient Education: Dementia Complete d 08/07/2021 Patient Education: Patient Medication Summary Completed 07/08/2021 Patient Education: Influenza Vaccine Completed 07/08/2021 Patient Education: Patient Medication Summary Completed 06/05/2021 Patient Education: Influenza Vaccine Completed 06/05/2021 Visit Plan: 04/23/2021 Patient Education: Patient Medication Summary Completed 04/23/2021 Patient Education: Influenza Vaccine Completed 04/23/2021 Patient Education: Alzheimer''s Disease Completed 04/23/2021 Patient Education: Dementia Complete d 04/23/2021 Instructions Comment Date Middle aged man with long st anding Hx of Parkinson's Disease and Lewy Body Dementia. Has a pacemaker. 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 Initial visit[place], moved March 2021 to [facility]. Mother-still alive, currently in her late 80's, all siblings are still alive (2 bro and 2 sis).SLUMS: 06/24 in Jul 2021 and SLUMS: 08/24 in MarchCP: DNR/DNI 02/24/2022 Neurocognitive Disorders Safe in / setting with 24 hour [...] treatment plan and to monitor. . 01/07/2022 Neurocognitive Disorders Recommend starting Depakote 125mg bid [...] Depakote, call placed to son. . 12/06/2021 Neurocognitive Disorders Appropriate for . Has fluctuating mood with intermittent agitation. Can be very possessive and combative along with boundary issues. Continue to monitor. Pleasant at visit today. Psych and [facility] to see this week TSH ordered Vitamin D Deficiency Vit D level ordered Depression Intermittently agitated. [facility] and Psych to see this week Parkinsons disease Check BMP and CBC. . 12/03/2021 Concerns Related to Food or Fluid Intake Monitor for weight losses with recent dx of covid-19. Continue to encourage adequate oral intake and hydration. Parkinsons disease Monitor for increased Parkinsonian symptoms. Continue current treatment regimen. Neurocognitive Disorders [facility] and [facility] psych referrals pending. Patient behaviors improved since he had been on isolation. Nursing to continue to monitor for concerns with sexual activities and vulnerable adults. COVID-19 Continue droplet isolation. Monitor for respiratory symptoms or declines. Continue to encourage adequate hydration and oral intake. . 11/05/2021 Parkinsons disease Patient stable. No acute concerns. [...] Weight stable. Continue to monitor. . 10/01/2021 Neurocognitive Disorders Less exit seeking noted with [...] any changes in the condition. . 08/27/2021 Concerns Related to Food or Fluid Intake [...] Continue to monitor for declines. . 08/07/2021 Neurocognitive Disorders No concerns per nursing about [...] at 110/80. Continue to monitor. . 07/08/2021 Cerebrovascular Disease Reviewed hospital records. CT of [...]
--- OUTSIDE RECORDS SUMMARY | 2025-04-21 23:20 | XMS_ITS | CCD ---
Author Name Mellisa Fountain CNP Address [address] [facility] [address] [place] [address] Phone Organization [facility] Phone Care Team Providers Care Graduate Advisor Name Role Phone Jin Flowers MD Primary Care Provider Unavailabl e Unavailable Chronic Care Management Unavaila ble Summary Purpose DataExchange Insurance Providers Payer name Policy type / Coverage type Covered green party ID Effective Begin Date Effective End Date [place] Medicare Part B [id number] Unknown Unkn own Family history Mother Diagnosis Age At Onset Arthritis Unknown Father Diagnosis Age At Onset Suicide Unknown Social History Social History Element Codes Description Effec tive Dates Alcohol history SNOMED CT: 573869 Currently drin ks alcohol Occ use only 04/23/2021 Marital status Unknown x2 04/22/2021 Living arrangements Unknown Memory Care 04/22/[address]: 1071635 Former smoker 04/22 Children Unknown Has Children [...] Fill Instructions citalopram 20 mg tablet RxNorm: 240064 Take 1 Tablet(s) Oral QD 1 08/01/20 22 Inactive citalopram 20 mg tablet RxNorm: 481527 Take 1 Tablet(s) Oral QD 1 08/07/20 21 Inactive Inbrija 42 mg capsules for inhalation RxNorm: 1002229 Take 1 Capsule(s) Inhalation as needed 1 No Stop Date Active Aspirin Low Dose 81 mg tablet,delayed release RxNorm: 384482 Take 1 Tablet(s) Oral QD 1 No Stop Date Active carbidopa ER 50 mg-levodopa 200 mg tablet,extended release RxNorm: 127608 Take 1 Tablet(s) Oral QHS every night at bedtime 1 No Stop Date Active carbidopa 25 mg-levodopa 100 mg tablet RxNorm: 080973 Take 2 Tablet(s) Oral Q4H every four hours 1 No Stop Date Active Medication Administered No Medication Administered data Immunizations Vaccine Codes Dose Date Status Covid-19 CVX: 208 12/18/2020 Covid-19 CVX: 208 11/27/2020 Tdap CVX: 115 01/07/2016 Tetanus, Diptheria, Pertussis CVX: 115 2015 Results Observation Observation Code Item Item Code Result Date Service Location Urine Culture [id number] URINE CULTURE 12092-3 SEE RESU LTS BELOW 022 Unknown Vitamin D Deficiency GFP991 VITAMIN D DEFICIENCY SCREENING 12 ug/L 022 Unknown TSH 34465-9 TSH LHE 57184-1 1.35 uIU/mL 022 Unknown CBC with Platelets Differential IGE099 WBC COUNT (AUTOMATED) 7.3 10e3/uL 022 Unknown CBC with Platelets Differential UYT404 RBC COUNT 789-8 4.54 10e6/uL 022 Unknown CBC with Platelets Differential BMK205 Hemoglobin 718-7 14.2 g/dL 022 Unknown CBC with Platelets Differential BAN931 Hematocrit 4544-3 43.7 % 022 Unknown CBC with Platelets Differential BNI292 MCV 787-2 96 fL 022 Unknown CBC with Platelets Differential MQX156 MCH 31.3 pg 022 Unknown CBC with Platelets Differential MMN465 MCHC 32.5 g/dL 022 Unknown CBC with Platelets Differential QLU071 RDW 13.6 % 022 Unknown CBC with Platelets Differential INJ843 Platelet Count 777-3 193 10e3/uL 022 Unknown CBC with Platelets Differential PZX499 % NEUTROPHILS AUTO 60 % 022 Unknown CBC with Platelets Differential SKE683 % LYMPHOCYTES AUTO 26 % 022 Unknown CBC with Platelets Differential GBA948 % MONOCYTES AUTO 8 % 022 Unknown CBC with Platelets Differential MOC507 % EOSINOPHILS AUTO 5 % 022 Unknown CBC with Platelets Differential KFQ757 % BASOPHILS AUTO 1 % 022 Unknown CBC with Platelets Differential RJF222 % IMMATURE GRANULOCYTES AUTO 0 % 022 Unknown CBC with Platelets Differential PAO575 NRBCS PER 100 WBC AUTO 0 /100 022 Unknown CBC with Platelets Differential IQG912 ABSOLUTE NEUTROPHILS AUTO 4.4 10e3/uL 022 Unknown CBC with Platelets Differential RSM696 ABSOLUTE LYMPHOCYTES AUTO 1.9 10e3/uL 022 Unknown CBC with Platelets Differential DQL570 ABSOLUTE MONOCYTES AUTO 0.6 10e3/uL 022 Unknown CBC with Platelets Differential PMR313 ABSOLUTE EOSINOPHILS AUTO 0.4 10e3/uL 022 Unknown CBC with Platelets Differential OAT651 ABSOLUTE BASOPHILS AUTO 0.0 10e3/uL 022 Unknown CBC with Platelets Differential WHK437 ABSOLUTE IMMATURE GRANULOCYTES AUTO 0.0 10e3/uL 022 Unknown CBC with Platelets Differential FGE562 NRBCS ABSOLUTE 0.0 10e3/uL 022 Unknown Basic Metabolic Panel LAB15 Sodium 2951-2 139 mmol/L 022 Unknown Basic Metabolic Panel LAB15 Potassium 2823-3 4.2 mmol/L 022 Unknown Basic Metabolic Panel LAB15 Chloride 2075-0 104 mmol/L 022 Unknown Basic Metabolic Panel LAB15 CO2 25 mmol/L 022 Unknown Basic Metabolic Panel LAB15 ANION GAP 85941-0 10 mmol/L 022 Unknown Basic Metabolic Panel LAB15 Urea Nitrogen 20 mg/dL 022 Unknown Basic Metabolic Panel LAB15 Creatinine 2160-0 0.83 mg/dL 022 Unknown Basic Metabolic Panel LAB15 Calcium 46229-0 9.2 mg/dL 022 Unknown Basic Metabolic Panel LAB15 Glucose 86 mg/dL 022 Unknown Basic Metabolic Panel LAB15 GFR, ESTIMATE 13158-7 >90 mL/min/1.73m 2 022 Unknown COVID-19 Virus PCR [id number] COVID-19 VIRUS PCR - RESULT Not Detected 021 Unknown PHQ9 PHQ9 19333-9 3 021 Unknown [facility] 27428-4 06/24 (Agitated) 021 Unknown COVID-19 Virus PCR DDI5011 COVID-19 VIRUS PCR - RESULT Not Detected 021 Unknown COVID-19 Virus PCR [id number] COVID-19 VIRUS PCR - RESULT Not Detected 021 Unknown COVID-19 Virus PCR UED2775 SARS-COV2 PCR Negative 021 Unknown PHQ9 PHQ9 31184-2 3 021 Unknown [facility] 41682-1 08/24 021 Unknown Procedures Procedure Codes Date [...] Wellness Vis it (AWV), Subsequent SNOMED CT: [id number] CPT-4: G0439 08/07/2021 SYS BP LESS 140 CPT-4: G8752 08/07/2021 LLANOS BP LESS 90 CPT-4: G8754 08/07/2021 ADVNC CARE PLAN IN RCRD CPT-4: 1157F 08/07/20 FXNL STATUS ASSESSED CPT-4: 1170F 08/07/2021 AMNT PAIN NOTED NONE PRSNT CPT-4: 1126F 08/07 FALL RISK ASSESSMENT DOCD CPT-4: 3288F 2020 PT INELIG NEG SCRN DEPRES SNOMED CT: 428 [id number] CPT-4: G8510 08/07/2021 SYS BP LESS 140 CPT-4: G8752 07/08/2021 LLANOS BP LESS 90 CPT-4: G8754 07/08/2021 SYS BP LESS 140 CPT-4: G8752 06/05/2021 LLANOS BP LESS 90 CPT-4: G8754 06/05/2021 SYS BP LESS 140 CPT-4: G8752 04/23/2021 LLANOS BP LESS 90 CPT-4: G8754 04/23/2021 PT INELIG NEG SCRN DEPRES SNOMED CT: 428 [id number] CPT-4: G8510 04/23/2021 FALL RISK ASSESSMENT DOCD CPT-4: 3288F 2020 Vital Signs Date Vital 01/07/2022 Blood Pressure 1: 131/77 Code: 8480-6 BMI: 26.3 Code: 92167-5 Heart Rate 1: 76 bpm Code: 8867-4 Height: 5'9 Code: 8302-2 Respiratory Rate: 18 bpm SpO2: 94% Temperature: 36.6 (C) / 97.8 (F) Weight: 178 lbs Code: [address]/06/2021 Blood Pressure 1: 137/61 Code: 8480-6 BMI: 27.3 Code: 29951-6 Heart Rate 1: 77 bpm Code: 8867-4 Height: 5'9 Code: 8302-2 Respiratory Rate: 20 bpm Temperature: 36.4 (C) / 97.5 (F) Weight: 185 lbs Code: 3141-0612/03/2021 Blood Pressure 1: 137/61 Code: 8480-6 BMI: 27.3 Code: 23042-7 Heart Rate 1: 77 bpm Code: 8867-4 Height: 5'9 Code: 8302-2 Respiratory Rate: 20 bpm Temperature: 36.7 (C) / 98.0 (F) Weight: 185 lbs Code: [address]/05/2021 Blood Pressure 1: 107/68 Code: 8480-6 BMI: 27.2 Code: 70570-2 Heart Rate 1: 76 bpm Code: 8867-4 [...] 1: 107/70 Code: 8480-6 BMI: 27.8 Code: 86972-3 Heart Rate 1: 71 bpm Code: 8867-4 Height: 5'9 Code: 8302-2 Respiratory Rate: 16 bpm SpO2: 95% Temperature: 36.0 (C) / 96.8 (F) Weight: 188 lbs Code: [address]/07/2021 Blood Pressure 1: 107/70 Code: 8480-6 BMI: 27.8 Code: 15916-1 Heart Rate 1: 71 bpm Code: 8867-4 Height: 5'9 Code: 8302-2 Respiratory Rate: 16 bpm Temperature: 36.5 (C) / 97.7 (F) Weight: 188 lbs Code: 3141-9 07/08/2021 Blood Pressure 1: 110/80 Code: 8480-6 BMI: 29.0 Code: 16816-3 Heart Rate 1: 90 bpm Code: 8867-4 Height: 5'9 Code: 8302-2 Respiratory Rate: 17 bpm Temperature: 36.4 (C) / 97.6 (F) Weight: 196 lbs 4 oz Code: 3141-9 06/05/2021 Blood Pressure 1: 127/65 Code: 8480-6 BMI: 30.1 Code: 02447-3 Heart Rate 1: 85 bpm Code: 8867-4 Height: 5'9 Code: 8302-2 Respiratory Rate: 19 bpm Temperature: 36.3 (C) / 97.4 (F) Weight: 204 lbs 2 oz Code: 3141-9 04/23/2021 Blood Pressure 1: 121/79 Code: 8480-6 BMI: 30.3 Code: 76203-0 Heart Rate 1: 67 bpm Code: 8867-4 Height: 5'9 Code: 8302-2 Respiratory Rate: 17 bpm Temperature: 36.3 (C) / 97.4 (F) Weight: 205 lbs Code: 3141-9 Reason For Visit No Reason For Visit data Encounters Encounter Performer Location Location Address Codes Date ([id number]) DOMICIL VISIT EST PAT Diagnosis: Dementia in other diseases classified elsewhere without behavioral disturbance[ICD10: F02.80] Diagnosis: Dementia with behavioral disturbance[ICD10: F03.91] Diagnosis: Dementia with Lewy bodies[ICD10: G31.83] Diagnosis: Vitamin D deficiency[ICD10: E55.9] Diagnosis: Parkinson disease[ICD10: G20] Diagnosis: Weakness[ICD10: R53.1] Jin Flowers [facility] [address] [address] CPT-4: 36249 2 ([id number]) PSYCH DIAG EVAL W/MED SRVCS Diagnosis: Dementia with behavioral disturbance[ICD10: F03.91] Diagnosis: Dementia with Lewy bodies[ICD10: G31.83] Diagnosis: Major depress, 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] Diagnosis: Parkinsons disease[ICD10: G20] Diagnosis: Weight loss[ICD10: R63.4] Diagnosis: Unsteadiness on feet[ICD10: R26.81] Jaylyn Bryant [facility] [address] [address] CPT-4: 23377 2 ([id number]) DOMICIL VISIT EST PAT Diagnosis: Parkinsons disease[ICD10: G20] Diagnosis: Dementia with Lewy bodies[ICD10: G31.83] Diagnosis: Dementia in other diseases classified elsewhere without behavioral disturbance[ICD10: F02.80] Diagnosis: Vitamin D deficiency[ICD10: E55.9] Diagnosis: Major depress, 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] Mellisa Fountain [facility] [address] [address] CPT-4: 31383 2 ([id number]) DOMICIL VISIT EST PAT Diagnosis: COVID-19[ICD10: U07.1] Diagnosis: Weight loss[ICD10: R63.4] Diagnosis: Dementia with Lewy bodies[ICD10: G31.83] Diagnosis: Dementia in other diseases classified elsewhere without behavioral disturbance[ICD10: F02.80] Diagnosis: Parkinsons disease[ICD10: G20] May Hannon [facility] [address] [address] CPT-4: 60183 2 ([id number]) DOMICIL VISIT EST PAT w/95 modifier Diagnosis: Dementia with Lewy bodies[ICD10: G31.83] Diagnosis: Dementia in other diseases classified elsewhere without behavioral disturbance[ICD10: F02.80] Diagnosis: Parkinsons disease[ICD10: G20] Diagnosis: Weakness[ICD10: R53.1] Diagnosis: Weight loss[ICD10: R63.4] Jin Flowers [facility] [address] [address] CPT-4: 75876 1 ([id number]) DOMICIL VISIT EST PAT Diagnosis: Parkinsons disease[ICD10: G20] Diagnosis: Dementia with Lewy bodies[ICD10: G31.83] Diagnosis: Dementia in other diseases classified elsewhere without behavioral disturbance[ICD10: F02.80] Diagnosis: Weakness due to acute cerebrovascular accident (CVA)[ICD10: I63.9] Diagnosis: Acute lacunar stroke[ICD10: I63.81] Mellisa Fountain [address] [address] CPT-4: 21382 1 ([id number]) DOMICIL VISIT EST PAT Diagnosis: Parkinsons disease[ICD10: G20] Diagnosis: Dementia in other diseases classified elsewhere without behavioral disturbance[ICD10: F02.80] Diagnosis: Dementia with Lewy bodies[ICD10: G31.83] Diagnosis: Weight loss[ICD10: R63.4] Diagnosis: Unsteadiness on feet[ICD10: R26.81] May Hannon [address] [address] CPT-4: 22561 1 ([id number]) DOMICIL VISIT EST PAT Diagnosis: History of permanent cardiac pacemaker placement[ICD10: Z95.0] Diagnosis: Dementia in other diseases classified elsewhere without behavioral disturbance[ICD10: F02.80] Diagnosis: Dementia with Lewy bodies[ICD10: G31.83] Diagnosis: Weakness due to acute cerebrovascular accident (CVA)[ICD10: I63.9] Diagnosis: Acute lacunar stroke[ICD10: I63.81] Jin Flowers [address] [address] CPT-4: 05547 1 ([id number]) DOMICIL VISIT EST PAT Diagnosis: Acute lacunar stroke[ICD10: I63.81] Diagnosis: Weakness due to acute cerebrovascular accident (CVA)[ICD10: I63.9] Diagnosis: Dementia in other diseases classified elsewhere without behavioral disturbance[ICD10: F02.80] Diagnosis: Dementia with Lewy bodies[ICD10: G31.83] Diagnosis: Weakness[ICD10: R53.1] Jin Flowers [facility] [address] [address] CPT-4: 04414 1 ([id number]) DOMICIL VISIT NEW PAT Diagnosis: Parkinsons disease[ICD10: G20] Diagnosis: Acute lacunar stroke[ICD10: I63.81] Diagnosis: Weakness[ICD10: R53.1] Diagnosis: Weakness due to acute cerebrovascular accident (CVA)[ICD10: I63.9] Diagnosis: Unsteadiness on feet[ICD10: R26.81] Diagnosis: Dementia in other diseases classified elsewhere without behavioral disturbance[ICD10: F02.80] Diagnosis: Dementia with Lewy bodies[ICD10: G31.83] Diagnosis: History of permanent cardiac pacemaker placement[ICD10: Z95.0] Mellisa Fountain [facility] [address] [address] CPT-4: 54845 Plan of Care Planned Activity Notes Codes [...] stroke February 2021. Initial visit: 04/23/20[place] in [place] in [place], moved March 2021 to [facility]. Mother-still alive, currently in her late 80's, [...] symptoms. Continue current treatment regimen. Neurocognitive Disorders [facility] and [facility] psych referrals pending. Patient behaviors improved [...]
[2025-04-21] MEDS: FLUORESCEIN SODIUM TOPICAL STRIP 1 STRIP EYE-LEFT (23:45)
[2025-04-21] MEDS: TETRACAINE 0.5% OPHTH 1 DROP EYE-LEFT (23:46)
[2025-04-21] MEDS: CEFPODOXIME PROXETIL 200 MG TABLET PO (23:47)
[2025-04-21] MEDS: ACYCLOVIR 200 MG CAPSULE 800 MG PO (23:47)
[2025-04-21] MEDS: CLINDAMYCIN 150 MG CAPSULE 300 MG PO (23:47)
--- OUTSIDE RECORDS SUMMARY | 2025-04-22 00:16 | XMS_ITS | CCD ---
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 Name Role Phone Jin Flowers MD Primary Care Provider Unavailabl e Unavailable Chronic Care Management Unavaila ble Summary Purpose DataExchange Insurance Providers Payer name Policy type / Coverage type Covered green party ID Effective Begin Date Effective End Date [place] Medicare Part B [id number] Unknown Unkn own Family history Mother Diagnosis Age At Onset Arthritis Unknown Father Diagnosis Age At Onset Suicide Unknown Social History Social History Element Codes Description Effec tive Dates Alcohol history SNOMED CT: 679236 Currently drin ks alcohol Occ use only 04/23/2021 Marital status Unknown x2 04/22/2021 Living arrangements Unknown Memory Care 04/22/[address]: 4159195 Former smoker 04/22 Children Unknown Has Children [...] Fill Instructions citalopram 20 mg tablet RxNorm: 254749 Take 1 Tablet(s) Oral QD 1 08/01/20 22 Inactive citalopram 20 mg tablet RxNorm: 732042 Take 1 Tablet(s) Oral QD 1 08/07/20 21 Inactive Inbrija 42 mg capsules for inhalation RxNorm: 0470652 Take 1 Capsule(s) Inhalation as needed 1 No Stop Date Active Aspirin Low Dose 81 mg tablet,delayed release RxNorm: 651644 Take 1 Tablet(s) Oral QD 1 No Stop Date Active carbidopa ER 50 mg-levodopa 200 mg tablet,extended release RxNorm: 516243 Take 1 Tablet(s) Oral QHS every night at bedtime 1 No Stop Date Active carbidopa 25 mg-levodopa 100 mg tablet RxNorm: 272064 Take 2 Tablet(s) Oral Q4H every four hours 1 No Stop Date Active Medication Administered No Medication Administered data Immunizations Vaccine Codes Dose Date Status Covid-19 CVX: 208 12/18/2020 Covid-19 CVX: 208 11/27/2020 Tdap CVX: 115 01/07/2016 Tetanus, Diptheria, Pertussis CVX: 115 2015 Results Observation Observation Code Item Item Code Result Date Service Location Urine Culture [id number] URINE CULTURE 95127-4 SEE RESU LTS BELOW 022 Unknown Vitamin D Deficiency WCR708 VITAMIN D DEFICIENCY SCREENING 12 ug/L 022 Unknown TSH 22301-9 TSH LHE 95301-4 1.35 uIU/mL 022 Unknown CBC with Platelets Differential GFP235 WBC COUNT (AUTOMATED) 7.3 10e3/uL 022 Unknown CBC with Platelets Differential FOI875 RBC COUNT 789-8 4.54 10e6/uL 022 Unknown CBC with Platelets Differential EQS286 Hemoglobin 718-7 14.2 g/dL 022 Unknown CBC with Platelets Differential PWE280 Hematocrit 4544-3 43.7 % 022 Unknown CBC with Platelets Differential REI569 MCV 787-2 96 fL 022 Unknown CBC with Platelets Differential ZQH199 MCH 31.3 pg 022 Unknown CBC with Platelets Differential WDI367 MCHC 32.5 g/dL 022 Unknown CBC with Platelets Differential XUM704 RDW 13.6 % 022 Unknown CBC with Platelets Differential EAI198 Platelet Count 777-3 193 10e3/uL 022 Unknown CBC with Platelets Differential ZOU841 % NEUTROPHILS AUTO 60 % 022 Unknown CBC with Platelets Differential AQF383 % LYMPHOCYTES AUTO 26 % 022 Unknown CBC with Platelets Differential WZY193 % MONOCYTES AUTO 8 % 022 Unknown CBC with Platelets Differential OQL559 % EOSINOPHILS AUTO 5 % 022 Unknown CBC with Platelets Differential YTT385 % BASOPHILS AUTO 1 % 022 Unknown CBC with Platelets Differential WQQ694 % IMMATURE GRANULOCYTES AUTO 0 % 022 Unknown CBC with Platelets Differential YDB647 NRBCS PER 100 WBC AUTO 0 /100 022 Unknown CBC with Platelets Differential QRK893 ABSOLUTE NEUTROPHILS AUTO 4.4 10e3/uL 022 Unknown CBC with Platelets Differential DUM637 ABSOLUTE LYMPHOCYTES AUTO 1.9 10e3/uL 022 Unknown CBC with Platelets Differential IEV682 ABSOLUTE MONOCYTES AUTO 0.6 10e3/uL 022 Unknown CBC with Platelets Differential XFL526 ABSOLUTE EOSINOPHILS AUTO 0.4 10e3/uL 022 Unknown CBC with Platelets Differential SHO733 ABSOLUTE BASOPHILS AUTO 0.0 10e3/uL 022 Unknown CBC with Platelets Differential NYT580 ABSOLUTE IMMATURE GRANULOCYTES AUTO 0.0 10e3/uL 022 Unknown CBC with Platelets Differential CZG209 NRBCS ABSOLUTE 0.0 10e3/uL 022 Unknown Basic Metabolic Panel LAB15 Sodium 2951-2 139 mmol/L 022 Unknown Basic Metabolic Panel LAB15 Potassium 2823-3 4.2 mmol/L 022 Unknown Basic Metabolic Panel LAB15 Chloride 2075-0 104 mmol/L 022 Unknown Basic Metabolic Panel LAB15 CO2 25 mmol/L 022 Unknown Basic Metabolic Panel LAB15 ANION GAP 19405-8 10 mmol/L 022 Unknown Basic Metabolic Panel LAB15 Urea Nitrogen 20 mg/dL 022 Unknown Basic Metabolic Panel LAB15 Creatinine 2160-0 0.83 mg/dL 022 Unknown Basic Metabolic Panel LAB15 Calcium 86176-2 9.2 mg/dL 022 Unknown Basic Metabolic Panel LAB15 Glucose 86 mg/dL 022 Unknown Basic Metabolic Panel LAB15 GFR, ESTIMATE 93507-5 >90 mL/min/1.73m 2 022 Unknown COVID-19 Virus PCR [id number] COVID-19 VIRUS PCR - RESULT Not Detected 021 Unknown PHQ9 PHQ9 44695-6 3 021 Unknown [facility] 64393-0 06/24 (Agitated) 021 Unknown COVID-19 Virus PCR LUP1599 COVID-19 VIRUS PCR - RESULT Not Detected 021 Unknown COVID-19 Virus PCR YQT3324 COVID-19 VIRUS PCR - RESULT Not Detected 021 Unknown COVID-19 Virus PCR MWM8194 SARS-COV2 PCR Negative 021 Unknown PHQ9 PHQ9 85809-1 3 021 Unknown [facility] 48309-8 08/24 021 Unknown Procedures Procedure Codes Date [...] Wellness Vis it (AWV), Subsequent SNOMED CT: [id number] CPT-4: G0439 08/07/2021 SYS BP LESS 140 CPT-4: G8752 08/07/2021 LLANOS BP LESS 90 CPT-4: G8754 08/07/2021 ADVNC CARE PLAN IN RCRD CPT-4: 1157F 08/07/20 FXNL STATUS ASSESSED CPT-4: 1170F 08/07/2021 AMNT PAIN NOTED NONE PRSNT CPT-4: 1126F 08/07 FALL RISK ASSESSMENT DOCD CPT-4: 3288F 2020 PT INELIG NEG SCRN DEPRES SNOMED CT: 428 [id number] CPT-4: G8510 08/07/2021 SYS BP LESS 140 CPT-4: G8752 07/08/2021 LLANOS BP LESS 90 CPT-4: G8754 07/08/2021 SYS BP LESS 140 CPT-4: G8752 06/05/2021 LLANOS BP LESS 90 CPT-4: G8754 06/05/2021 SYS BP LESS 140 CPT-4: G8752 04/23/2021 LLANOS BP LESS 90 CPT-4: G8754 04/23/2021 PT INELIG NEG SCRN DEPRES SNOMED CT: 428 [id number] CPT-4: G8510 04/23/2021 FALL RISK ASSESSMENT DOCD CPT-4: 3288F 2020 Vital Signs Date Vital 01/07/2022 Blood Pressure 1: 131/77 Code: 8480-6 BMI: 26.3 Code: 11191-4 Heart Rate 1: 76 bpm Code: 8867-4 Height: 5'9 Code: 8302-2 Respiratory Rate: 18 bpm SpO2: 94% Temperature: 36.6 (C) / 97.8 (F) Weight: 178 lbs Code: [address]/06/2021 Blood Pressure 1: 137/61 Code: 8480-6 BMI: 27.3 Code: 40284-7 Heart Rate 1: 77 bpm Code: 8867-4 Height: 5'9 Code: 8302-2 Respiratory Rate: 20 bpm Temperature: 36.4 (C) / 97.5 (F) Weight: 185 lbs Code: 3141-0612/03/2021 Blood Pressure 1: 137/61 Code: 8480-6 BMI: 27.3 Code: 83656-3 Heart Rate 1: 77 bpm Code: 8867-4 Height: 5'9 Code: 8302-2 Respiratory Rate: 20 bpm Temperature: 36.7 (C) / 98.0 (F) Weight: 185 lbs Code: [address]/05/2021 Blood Pressure 1: 107/68 Code: 8480-6 BMI: 27.2 Code: 07049-3 Heart Rate 1: 76 bpm Code: 8867-4 [...] 1: 107/70 Code: 8480-6 BMI: 27.8 Code: 77939-0 Heart Rate 1: 71 bpm Code: 8867-4 Height: 5'9 Code: 8302-2 Respiratory Rate: 16 bpm SpO2: 95% Temperature: 36.0 (C) / 96.8 (F) Weight: 188 lbs Code: [address]/07/2021 Blood Pressure 1: 107/70 Code: 8480-6 BMI: 27.8 Code: 34602-1 Heart Rate 1: 71 bpm Code: 8867-4 Height: 5'9 Code: 8302-2 Respiratory Rate: 16 bpm Temperature: 36.5 (C) / 97.7 (F) Weight: 188 lbs Code: 3141-9 07/08/2021 Blood Pressure 1: 110/80 Code: 8480-6 BMI: 29.0 Code: 10068-2 Heart Rate 1: 90 bpm Code: 8867-4 Height: 5'9 Code: 8302-2 Respiratory Rate: 17 bpm Temperature: 36.4 (C) / 97.6 (F) Weight: 196 lbs 4 oz Code: 3141-9 06/05/2021 Blood Pressure 1: 127/65 Code: 8480-6 BMI: 30.1 Code: 15471-7 Heart Rate 1: 85 bpm Code: 8867-4 Height: 5'9 Code: 8302-2 Respiratory Rate: 19 bpm Temperature: 36.3 (C) / 97.4 (F) Weight: 204 lbs 2 oz Code: 3141-9 04/23/2021 Blood Pressure 1: 121/79 Code: 8480-6 BMI: 30.3 Code: 89751-4 Heart Rate 1: 67 bpm Code: 8867-4 Height: 5'9 Code: 8302-2 Respiratory Rate: 17 bpm Temperature: 36.3 (C) / 97.4 (F) Weight: 205 lbs Code: 3141-9 Reason For Visit No Reason For Visit data Encounters Encounter Performer Location Location Address Codes Date ([id number]) DOMICIL VISIT EST PAT Diagnosis: Dementia in other diseases classified elsewhere without behavioral disturbance[ICD10: F02.80] Diagnosis: Dementia with behavioral disturbance[ICD10: F03.91] Diagnosis: Dementia with Lewy bodies[ICD10: G31.83] Diagnosis: Vitamin D deficiency[ICD10: E55.9] Diagnosis: Parkinson disease[ICD10: G20] Diagnosis: Weakness[ICD10: R53.1] Jin Flowers [facility] [address] [address] CPT-4: 84750 2 ([id number]) PSYCH DIAG EVAL W/MED SRVCS Diagnosis: Dementia with behavioral disturbance[ICD10: F03.91] Diagnosis: Dementia with Lewy bodies[ICD10: G31.83] Diagnosis: Major depress, 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] Diagnosis: Parkinsons disease[ICD10: G20] Diagnosis: Weight loss[ICD10: R63.4] Diagnosis: Unsteadiness on feet[ICD10: R26.81] Jaylyn Bryant [facility] [address] [address] CPT-4: 37926 2 ([id number]) DOMICIL VISIT EST PAT Diagnosis: Parkinsons disease[ICD10: G20] Diagnosis: Dementia with Lewy bodies[ICD10: G31.83] Diagnosis: Dementia in other diseases classified elsewhere without behavioral disturbance[ICD10: F02.80] Diagnosis: Vitamin D deficiency[ICD10: E55.9] Diagnosis: Major depress, 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] Mellisa Fountain [facility] [address] [address] CPT-4: 61971 2 ([id number]) DOMICIL VISIT EST PAT Diagnosis: COVID-19[ICD10: U07.1] Diagnosis: Weight loss[ICD10: R63.4] Diagnosis: Dementia with Lewy bodies[ICD10: G31.83] Diagnosis: Dementia in other diseases classified elsewhere without behavioral disturbance[ICD10: F02.80] Diagnosis: Parkinsons disease[ICD10: G20] May Hannon [facility] [address] [address] CPT-4: 04621 2 ([id number]) DOMICIL VISIT EST PAT w/95 modifier Diagnosis: Dementia with Lewy bodies[ICD10: G31.83] Diagnosis: Dementia in other diseases classified elsewhere without behavioral disturbance[ICD10: F02.80] Diagnosis: Parkinsons disease[ICD10: G20] Diagnosis: Weakness[ICD10: R53.1] Diagnosis: Weight loss[ICD10: R63.4] Jin Flowers [facility] [address] [address] CPT-4: 72938 1 ([id number]) DOMICIL VISIT EST PAT Diagnosis: Parkinsons disease[ICD10: G20] Diagnosis: Dementia with Lewy bodies[ICD10: G31.83] Diagnosis: Dementia in other diseases classified elsewhere without behavioral disturbance[ICD10: F02.80] Diagnosis: Weakness due to acute cerebrovascular accident (CVA)[ICD10: I63.9] Diagnosis: Acute lacunar stroke[ICD10: I63.81] Mellisa Fountain [address] [address] CPT-4: 08024 1 ([id number]) DOMICIL VISIT EST PAT Diagnosis: Parkinsons disease[ICD10: G20] Diagnosis: Dementia in other diseases classified elsewhere without behavioral disturbance[ICD10: F02.80] Diagnosis: Dementia with Lewy bodies[ICD10: G31.83] Diagnosis: Weight loss[ICD10: R63.4] Diagnosis: Unsteadiness on feet[ICD10: R26.81] May Hannon [address] [address] CPT-4: 74725 1 ([id number]) DOMICIL VISIT EST PAT Diagnosis: History of permanent cardiac pacemaker placement[ICD10: Z95.0] Diagnosis: Dementia in other diseases classified elsewhere without behavioral disturbance[ICD10: F02.80] Diagnosis: Dementia with Lewy bodies[ICD10: G31.83] Diagnosis: Weakness due to acute cerebrovascular accident (CVA)[ICD10: I63.9] Diagnosis: Acute lacunar stroke[ICD10: I63.81] Jin Flowers [address] [address] CPT-4: 70724 1 ([id number]) DOMICIL VISIT EST PAT Diagnosis: Acute lacunar stroke[ICD10: I63.81] Diagnosis: Weakness due to acute cerebrovascular accident (CVA)[ICD10: I63.9] Diagnosis: Dementia in other diseases classified elsewhere without behavioral disturbance[ICD10: F02.80] Diagnosis: Dementia with Lewy bodies[ICD10: G31.83] Diagnosis: Weakness[ICD10: R53.1] Jin Flowers [facility] [address] [address] CPT-4: 55040 1 ([id number]) DOMICIL VISIT NEW PAT Diagnosis: Parkinsons disease[ICD10: G20] Diagnosis: Acute lacunar stroke[ICD10: I63.81] Diagnosis: Weakness[ICD10: R53.1] Diagnosis: Weakness due to acute cerebrovascular accident (CVA)[ICD10: I63.9] Diagnosis: Unsteadiness on feet[ICD10: R26.81] Diagnosis: Dementia in other diseases classified elsewhere without behavioral disturbance[ICD10: F02.80] Diagnosis: Dementia with Lewy bodies[ICD10: G31.83] Diagnosis: History of permanent cardiac pacemaker placement[ICD10: Z95.0] Mellisa Fountain [facility] [address] [address] CPT-4: 74247 Plan of Care Planned Activity Notes Codes [...] stroke February 2021. Initial visit: 04/23/2021ived in [place] in [place], moved March 2021 to [facility]. Mother-still alive, currently in her late 80's, [...] symptoms. Continue current treatment regimen. Neurocognitive Disorders [facility] and [facility] psych referrals pending. Patient behaviors improved [...]
--- OUTSIDE RECORDS SUMMARY | 2025-04-22 00:17 | XMS_ITS | CCD ---
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 Name Role Phone Jin Flowers MD Primary Care Provider Unavailabl e Unavailable Chronic Care Management Unavaila ble Summary Purpose DataExchange Insurance Providers Payer name Policy type / Coverage type Covered alliance party ID Effective Begin Date Effective End Date [place] Part B [id number] Unknown Unkn own Family history Mother Diagnosis Age At Onset Arthritis Unknown Father Diagnosis Age At Onset Suicide Unknown Social History Social History Element Codes Description Effec tive Dates Alcohol history SNOMED CT: 542036 Currently drin ks alcohol Occ use only 04/23/2021 Marital status Unknown x2 04/22/2021 Living arrangements Unknown Memory Care 04/22/[address]: 0505487 Former smoker 04/22 Children Unknown Has Children [...] Fill Instructions citalopram 20 mg tablet RxNorm: 385036 Take 1 Tablet(s) Oral QD 1 08/01/20 22 Inactive citalopram 20 mg tablet RxNorm: 884024 Take 1 Tablet(s) Oral QD 1 08/07/20 21 Inactive Inbrija 42 mg capsules for inhalation RxNorm: 6031218 Take 1 Capsule(s) Inhalation as needed 1 No Stop Date Active Aspirin Low Dose 81 mg tablet,delayed release RxNorm: 293614 Take 1 Tablet(s) Oral QD 1 No Stop Date Active carbidopa ER 50 mg-levodopa 200 mg tablet,extended release RxNorm: 050306 Take 1 Tablet(s) Oral QHS every night at bedtime 1 No Stop Date Active carbidopa 25 mg-levodopa 100 mg tablet RxNorm: 852977 Take 2 Tablet(s) Oral Q4H every four hours 1 No Stop Date Active Medication Administered No Medication Administered data Immunizations Vaccine Codes Dose Date Status Covid-19 CVX: 208 12/18/2020 Covid-19 CVX: 208 11/27/2020 Tdap CVX: 115 01/07/2016 Tetanus, Diptheria, Pertussis CVX: 115 2015 Results Observation Observation Code Item Item Code Result Date Service Location Urine Culture [id number] URINE CULTURE 13105-3 SEE RESU LTS BELOW 022 Unknown Vitamin D Deficiency NLY253 VITAMIN D DEFICIENCY SCREENING 12 ug/L 022 Unknown TSH 12748-0 TSH LHE 51011-9 1.35 uIU/mL 022 Unknown CBC with Platelets Differential MLW741 WBC COUNT (AUTOMATED) 7.3 10e3/uL 022 Unknown CBC with Platelets Differential QRL112 RBC COUNT 789-8 4.54 10e6/uL 022 Unknown CBC with Platelets Differential AXA137 Hemoglobin 718-7 14.2 g/dL 022 Unknown CBC with Platelets Differential SHN043 Hematocrit 4544-3 43.7 % 022 Unknown CBC with Platelets Differential XHW725 MCV 787-2 96 fL 022 Unknown CBC with Platelets Differential DWU094 MCH 31.3 pg 022 Unknown CBC with Platelets Differential RPM204 MCHC 32.5 g/dL 022 Unknown CBC with Platelets Differential ANG770 RDW 13.6 % 022 Unknown CBC with Platelets Differential ZHZ719 Platelet Count 777-3 193 10e3/uL 022 Unknown CBC with Platelets Differential MCO569 % NEUTROPHILS AUTO 60 % 022 Unknown CBC with Platelets Differential CFB991 % LYMPHOCYTES AUTO 26 % 022 Unknown CBC with Platelets Differential GWI389 % MONOCYTES AUTO 8 % 022 Unknown CBC with Platelets Differential EGI150 % EOSINOPHILS AUTO 5 % 022 Unknown CBC with Platelets Differential NAJ486 % BASOPHILS AUTO 1 % 022 Unknown CBC with Platelets Differential JYX544 % IMMATURE GRANULOCYTES AUTO 0 % 022 Unknown CBC with Platelets Differential NQU786 NRBCS PER 100 WBC AUTO 0 /100 022 Unknown CBC with Platelets Differential WYI546 ABSOLUTE NEUTROPHILS AUTO 4.4 10e3/uL 022 Unknown CBC with Platelets Differential QGY017 ABSOLUTE LYMPHOCYTES AUTO 1.9 10e3/uL 022 Unknown CBC with Platelets Differential CZH867 ABSOLUTE MONOCYTES AUTO 0.6 10e3/uL 022 Unknown CBC with Platelets Differential VRI342 ABSOLUTE EOSINOPHILS AUTO 0.4 10e3/uL 022 Unknown CBC with Platelets Differential IUX785 ABSOLUTE BASOPHILS AUTO 0.0 10e3/uL 022 Unknown CBC with Platelets Differential EXR329 ABSOLUTE IMMATURE GRANULOCYTES AUTO 0.0 10e3/uL 022 Unknown CBC with Platelets Differential ZIO723 NRBCS ABSOLUTE 0.0 10e3/uL 022 Unknown Basic Metabolic Panel LAB15 Sodium 2951-2 139 mmol/L 022 Unknown Basic Metabolic Panel LAB15 Potassium 2823-3 4.2 mmol/L 022 Unknown Basic Metabolic Panel LAB15 Chloride 2075-0 104 mmol/L 022 Unknown Basic Metabolic Panel LAB15 CO2 25 mmol/L 022 Unknown Basic Metabolic Panel LAB15 ANION GAP 88365-8 10 mmol/L 022 Unknown Basic Metabolic Panel LAB15 Urea Nitrogen 20 mg/dL 022 Unknown Basic Metabolic Panel LAB15 Creatinine 2160-0 0.83 mg/dL 022 Unknown Basic Metabolic Panel LAB15 Calcium 49837-6 9.2 mg/dL 022 Unknown Basic Metabolic Panel LAB15 Glucose 86 mg/dL 022 Unknown Basic Metabolic Panel LAB15 GFR, ESTIMATE 53991-5 >90 mL/min/1.73m 2 022 Unknown COVID-19 Virus PCR LEB1874 COVID-19 VIRUS PCR - RESULT Not Detected 021 Unknown PHQ9 PHQ9 99077-9 3 021 Unknown [facility] 31120-0 06/24 (Agitated) 021 Unknown COVID-19 Virus PCR SWS7586 COVID-19 VIRUS PCR - RESULT Not Detected 021 Unknown COVID-19 Virus PCR KTO9742 COVID-19 VIRUS PCR - RESULT Not Detected 021 Unknown COVID-19 Virus PCR [id number] SARS-COV2 PCR Negative 021 Unknown PHQ9 PHQ9 12374-1 3 021 Unknown [facility] 44278-0 08/24 021 Unknown Procedures Procedure Codes Date [...] Wellness Vis it (AWV), Subsequent SNOMED CT: [id number] CPT-4: G0439 08/07/2021 SYS BP LESS 140 CPT-4: G8752 08/07/2021 LLANOS BP LESS 90 CPT-4: G8754 08/07/2021 ADVNC CARE PLAN IN RCRD CPT-4: 1157F 08/07/20 FXNL STATUS ASSESSED CPT-4: 1170F 08/07/2021 AMNT PAIN NOTED NONE PRSNT CPT-4: 1126F 08/07 FALL RISK ASSESSMENT DOCD CPT-4: 3288F 2020 PT INELIG NEG SCRN DEPRES SNOMED CT: 428 [id number] CPT-4: G8510 08/07/2021 SYS BP LESS 140 CPT-4: G8752 07/08/2021 LLANOS BP LESS 90 CPT-4: G8754 07/08/2021 SYS BP LESS 140 CPT-4: G8752 06/05/2021 LLANOS BP LESS 90 CPT-4: G8754 06/05/2021 SYS BP LESS 140 CPT-4: G8752 04/23/2021 LLANOS BP LESS 90 CPT-4: G8754 04/23/2021 PT INELIG NEG SCRN DEPRES SNOMED CT: 428 [id number] CPT-4: G8510 04/23/2021 FALL RISK ASSESSMENT DOCD CPT-4: 3288F 2020 Vital Signs Date Vital 01/07/2022 Blood Pressure 1: 131/77 Code: 8480-6 BMI: 26.3 Code: 51254-1 Heart Rate 1: 76 bpm Code: 8867-4 Height: 5'9 Code: 8302-2 Respiratory Rate: 18 bpm SpO2: 94% Temperature: 36.6 (C) / 97.8 (F) Weight: 178 lbs Code: [address]/06/2021 Blood Pressure 1: 137/61 Code: 8480-6 BMI: 27.3 Code: 75301-8 Heart Rate 1: 77 bpm Code: 8867-4 Height: 5'9 Code: 8302-2 Respiratory Rate: 20 bpm Temperature: 36.4 (C) / 97.5 (F) Weight: 185 lbs Code: 3141-0612/03/2021 Blood Pressure 1: 137/61 Code: 8480-6 BMI: 27.3 Code: 05621-6 Heart Rate 1: 77 bpm Code: 8867-4 Height: 5'9 Code: 8302-2 Respiratory Rate: 20 bpm Temperature: 36.7 (C) / 98.0 (F) Weight: 185 lbs Code: [address]/05/2021 Blood Pressure 1: 107/68 Code: 8480-6 BMI: 27.2 Code: 46832-3 Heart Rate 1: 76 bpm Code: 8867-4 [...] 1: 107/70 Code: 8480-6 BMI: 27.8 Code: 54612-9 Heart Rate 1: 71 bpm Code: 8867-4 Height: 5'9 Code: 8302-2 Respiratory Rate: 16 bpm SpO2: 95% Temperature: 36.0 (C) / 96.8 (F) Weight: 188 lbs Code: [address]/07/2021 Blood Pressure 1: 107/70 Code: 8480-6 BMI: 27.8 Code: 46267-5 Heart Rate 1: 71 bpm Code: 8867-4 Height: 5'9 Code: 8302-2 Respiratory Rate: 16 bpm Temperature: 36.5 (C) / 97.7 (F) Weight: 188 lbs Code: 3141-9 07/08/2021 Blood Pressure 1: 110/80 Code: 8480-6 BMI: 29.0 Code: 79580-9 Heart Rate 1: 90 bpm Code: 8867-4 Height: 5'9 Code: 8302-2 Respiratory Rate: 17 bpm Temperature: 36.4 (C) / 97.6 (F) Weight: 196 lbs 4 oz Code: 3141-9 06/05/2021 Blood Pressure 1: 127/65 Code: 8480-6 BMI: 30.1 Code: 30471-3 Heart Rate 1: 85 bpm Code: 8867-4 Height: 5'9 Code: 8302-2 Respiratory Rate: 19 bpm Temperature: 36.3 (C) / 97.4 (F) Weight: 204 lbs 2 oz Code: 3141-9 04/23/2021 Blood Pressure 1: 121/79 Code: 8480-6 BMI: 30.3 Code: 00460-5 Heart Rate 1: 67 bpm Code: 8867-4 Height: 5'9 Code: 8302-2 Respiratory Rate: 17 bpm Temperature: 36.3 (C) / 97.4 (F) Weight: 205 lbs Code: 3141-9 Reason For Visit No Reason For Visit data Encounters Encounter Performer Location Location Address Codes Date ([id number]) DOMICIL VISIT EST PAT Diagnosis: Dementia in other diseases classified elsewhere without behavioral disturbance[ICD10: F02.80] Diagnosis: Dementia with behavioral disturbance[ICD10: F03.91] Diagnosis: Dementia with Lewy bodies[ICD10: G31.83] Diagnosis: Vitamin D deficiency[ICD10: E55.9] Diagnosis: Parkinson disease[ICD10: G20] Diagnosis: Weakness[ICD10: R53.1] Jin Flowers [facility] [address] [address] CPT-4: 63816 2 ([id number]) PSYCH DIAG EVAL W/MED SRVCS Diagnosis: Dementia with behavioral disturbance[ICD10: F03.91] Diagnosis: Dementia with Lewy bodies[ICD10: G31.83] Diagnosis: Major depress, 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] Diagnosis: Parkinsons disease[ICD10: G20] Diagnosis: Weight loss[ICD10: R63.4] Diagnosis: Unsteadiness on feet[ICD10: R26.81] Jaylyn Bryant [facility] [address] [address] CPT-4: 19284 2 ([id number]) DOMICIL VISIT EST PAT Diagnosis: Parkinsons disease[ICD10: G20] Diagnosis: Dementia with Lewy bodies[ICD10: G31.83] Diagnosis: Dementia in other diseases classified elsewhere without behavioral disturbance[ICD10: F02.80] Diagnosis: Vitamin D deficiency[ICD10: E55.9] Diagnosis: Major depress, 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] Mellisa Fountain [facility] [address] [address] CPT-4: 35761 2 ([id number]) DOMICIL VISIT EST PAT Diagnosis: COVID-19[ICD10: U07.1] Diagnosis: Weight loss[ICD10: R63.4] Diagnosis: Dementia with Lewy bodies[ICD10: G31.83] Diagnosis: Dementia in other diseases classified elsewhere without behavioral disturbance[ICD10: F02.80] Diagnosis: Parkinsons disease[ICD10: G20] May Hannon [facility] [address] [address] CPT-4: 00472 2 ([id number]) DOMICIL VISIT EST PAT w/95 modifier Diagnosis: Dementia with Lewy bodies[ICD10: G31.83] Diagnosis: Dementia in other diseases classified elsewhere without behavioral disturbance[ICD10: F02.80] Diagnosis: Parkinsons disease[ICD10: G20] Diagnosis: Weakness[ICD10: R53.1] Diagnosis: Weight loss[ICD10: R63.4] Jin Flowers [facility] [address] [address] CPT-4: 09587 1 ([id number]) DOMICIL VISIT EST PAT Diagnosis: Parkinsons disease[ICD10: G20] Diagnosis: Dementia with Lewy bodies[ICD10: G31.83] Diagnosis: Dementia in other diseases classified elsewhere without behavioral disturbance[ICD10: F02.80] Diagnosis: Weakness due to acute cerebrovascular accident (CVA)[ICD10: I63.9] Diagnosis: Acute lacunar stroke[ICD10: I63.81] Mellisa Fountain [address] [address] CPT-4: 54820 1 ([id number]) DOMICIL VISIT EST PAT Diagnosis: Parkinsons disease[ICD10: G20] Diagnosis: Dementia in other diseases classified elsewhere without behavioral disturbance[ICD10: F02.80] Diagnosis: Dementia with Lewy bodies[ICD10: G31.83] Diagnosis: Weight loss[ICD10: R63.4] Diagnosis: Unsteadiness on feet[ICD10: R26.81] May Hannon [address] [address] CPT-4: 26263 1 ([id number]) DOMICIL VISIT EST PAT Diagnosis: History of permanent cardiac pacemaker placement[ICD10: Z95.0] Diagnosis: Dementia in other diseases classified elsewhere without behavioral disturbance[ICD10: F02.80] Diagnosis: Dementia with Lewy bodies[ICD10: G31.83] Diagnosis: Weakness due to acute cerebrovascular accident (CVA)[ICD10: I63.9] Diagnosis: Acute lacunar stroke[ICD10: I63.81] Jin Flowers [address] [address] CPT-4: 14791 1 ([id number]) DOMICIL VISIT EST PAT Diagnosis: Acute lacunar stroke[ICD10: I63.81] Diagnosis: Weakness due to acute cerebrovascular accident (CVA)[ICD10: I63.9] Diagnosis: Dementia in other diseases classified elsewhere without behavioral disturbance[ICD10: F02.80] Diagnosis: Dementia with Lewy bodies[ICD10: G31.83] Diagnosis: Weakness[ICD10: R53.1] Jin Flowers [facility] [address] [address] CPT-4: 95380 1 ([id number]) DOMICIL VISIT NEW PAT Diagnosis: Parkinsons disease[ICD10: G20] Diagnosis: Acute lacunar stroke[ICD10: I63.81] Diagnosis: Weakness[ICD10: R53.1] Diagnosis: Weakness due to acute cerebrovascular accident (CVA)[ICD10: I63.9] Diagnosis: Unsteadiness on feet[ICD10: R26.81] Diagnosis: Dementia in other diseases classified elsewhere without behavioral disturbance[ICD10: F02.80] Diagnosis: Dementia with Lewy bodies[ICD10: G31.83] Diagnosis: History of permanent cardiac pacemaker placement[ICD10: Z95.0] Mellisa Fountain [facility] [address] [address] CPT-4: 55816 Plan of Care Planned Activity Notes Codes [...] stroke February 2021. Initial visit: 04/23/2021ived in [place] in [place], moved March 2021 to [facility]. Mother-still alive, currently in her late 80's, [...] symptoms. Continue current treatment regimen. Neurocognitive Disorders [facility] and [facility] psych referrals pending. Patient behaviors improved since [...]
== END 2025-04-21 23:57 | disposition home or self-care (01) ==
PROVIDERS: Emergency Provider Student in an Organized Health Care Education/Training Program
DX: H10.9 Unspecified conjunctivitis (principal); B02.9 Zoster without complications; L03.213 Periorbital cellulitis; M79.632 Pain in left forearm
CPT/HCPCS: 99283; A9270